=== PATIENT | male | born 1960 | race Asian ===

== ENCOUNTER 2018-06-18 10:51 | Emergency (ER) | payer OTHER, SELFPAY ==
[2018-06-18 11:22] VITALS: BP 147/96; PULSE 71; RESP 18; TEMP 37.1; O2SAT 99
[2018-06-18 11:30] VITALS: PULSE 71; RESP 18; TEMP 37.1; O2SAT 99; BMI 28.8
[2018-06-18] MEDS: ALBUTEROL/IPRATROPIUM 3 ML AMPUL INH (11:44)
--- NOTE | 2018-06-18 11:46 | DI.RAD.S_ITS ---
PROCEDURE: XR CHEST 2V INDICATIONS: shortness of breath TECHNIQUE: 2 views of the chest were acquired. COMPARISON: None. FINDINGS: Surgical changes and devices: None. Lungs and pleura: Lungs are clear. No pleural effusions or pneumothorax. Mediastinum: Mediastinal contours are normal. Heart size is normal. Bones and chest wall: No suspicious bony abnormalities. Soft tissues appear unremarkable. IMPRESSION: No acute disease. Dictated by: Austin Mckeon M.D. on 06/18/2018 at 12:09 Approved by: Austin Mckeon M.D. on 06/18/2018 at 12:10
[2018-06-18 11:47] VITALS: PULSE 80; RESP 20
--- NOTE | 2018-06-18 11:52 | ED.SOB ---
HPI - SOB/Dyspnea General Chief Complaint: Shortness of Breath/Dyspnea Stated Complaint: sob Time Seen by Provider: 06/18/18 11:44 Source: patient Mode of arrival: ambulatory Limitations: no limitations History of Present Illness Patient is a 57-year-old male presents with increasing shortness of breath. states that it has been ongoing for about a week the he intermittently has chest pain. He has no known coronary artery disease but does have nitroglycerin and albuterol at home. Today he presents with wheezing and increasing shortness of breath. He denies any fever he sometimes cough something up. states that is progressively gotten worse with the breathing. He states that the they have tried multiple times is to have a treadmill stress test unfortunately he does not tolerate or is blood pressure is increase is too high so they have stopped it early. He is getting a nuclear stress test at some point but has not yet had it. MD Complaint: shortness of breath and cough Related Data Home Medications Medication Instructions Recorded Confirmed albuterol sulfate [ProAir HFA] 1 puff INHALATION PRN PRN 06/18/18 06/18/18 fluticasone propionate 1 spray INTRANASAL DIRECTED 06/18/18 loratadine 10 mg PO DAILY 06/18/18 06/18/18 omeprazole 20 mg PO DAILY 06/18/18 06/18/18 Previous Rx's Medication Instructions Recorded doxycycline hyclate 100 mg PO BID #14 cap 06/18/18 prednisone 50 mg PO DAILY #5 tab 06/18/18 Allergies Allergy/AdvReac Type Severity Reaction Status Date / Time No Known Drug Allergies Allergy Verified 06/18/18 11:47 Review of Systems Review of Systems GENERAL: Denies chills, fatigue, malaise, fever, sweats, travel HEENT: Denies sinus pain, ear pain, sore throat, difficulty swallowing, neck pain RESPIRATORY: See HPI CARDIOVASCULAR: Denies chest pain, palpitations, orthopnea, edema GASTROINTESTINAL: Denies nausea, vomiting, abdominal pain, diarrhea, constipation, melena. : Denies dysuria, frequency, incontinence, hematuria, urinary retention, flank pain. MUSCULOSKELETAL: Denies weakness, joint pain, or bony pain SKIN: No rash, no erythema, no pruritus NEUROLOGIC: Denies weakness, dizziness, headache, numbness, change in speech, confusion PSYCHIATRIC: No concerning psychosocial issues. 12 point review of systems is negative except for those stated above and HPI [facility] Medical History Asthma (Acute) Social History Smoking Status: Former smoker Social History Smoking Status: Former smoker Exam Initial Vital Signs Initial Vital Signs: Vital Signs Temperature 98.7 F 06/18/18 11:22 Pulse Rate 71 06/18/18 11:22 Respiratory Rate 18 06/18/18 11:22 Blood Pressure 147/96 H 06/18/18 11:22 Pulse Oximetry 99 06/18/18 11:22 GENERAL: Alert awake oriented male currently getting nebulized HEENT: Head atraumatic,EOMI, pupils reactive CARDIOVASCULAR: Regular rate and rhythm without murmurs, rubs or gallops. RESPIRATORY: Wheezing bilaterally unable to speak in full sentences currently getting breathing treatment. Nursing states he was try potting when he 1st came in and having significant respiratory distress overall improved when I evaluate him ABDOMEN: Soft, nontender. Normoactive bowel sounds all 4 quadrants. No guarding or rebound. EXTREMITIES: Normal range of motion, no clubbing or edema. Neurovascularly intact NEUROLOGICAL: Alert and oriented x4.Normal gait and speech. SKIN: Warm, dry, no laceration, no petechiae, no rashes or lesions. Course Orders Ordered: Discontinued Medications Albuterol (Ventolin) 2.5 mg INH NOW ONE Stop: 06/18/18 12:06 Last Admin: 06/18/18 12:08 Dose: 2.5 mg Albuterol/Ipratropium (Duoneb) 3 ml INH NOW ONE Stop: 06/18/18 11:37 Last Admin: 06/18/18 11:44 Dose: 3 ml Methylprednisolone (Solu-Medrol 125 Mg Vial) 125 mg IV NOW ONE Stop: 06/18/18 11:52 Last Admin: 06/18/18 12:19 Dose: 125 mg Vital Signs - 8 hr 06/18/18 11:22 06/18/18 11:30 06/18/18 11:47 Temperature 98.7 F 98.7 F Pulse Rate 71 71 80 Respiratory Rate 18 18 20 Blood Pressure [Right Arm] 147/96 H Pulse Oximetry 99 99 06/18/18 12:10 06/18/18 12:41 Temperature Pulse Rate 67 87 Respiratory Rate 20 17 Blood Pressure [Right Arm] 128/71 Pulse Oximetry 97 MDM - SOB/Dyspnea Lab Data Attestation: I reviewed the patient's lab results. Result diagrams: 06/18/18 12:15 06/18/18 12:15 Lab Results 06/18/18 06/18/18 06/18/18 Range/Units 12:15 12:15 12:15 WBC 12.3 H (4.5-11.0) X10^3/uL RBC 6.53 H (4.5-5.9) X10^6/uL Hgb 13.9 (13.5-17.5) g/dL Hct 44.6 (41-53) % MCV 68.3 L (80-100) fL MCH 21.4 L (26-34) PG MCHC 31.3 (30-36) % RDW 16.1 H (11.6-14.8) % Plt Count 299 (150-400) X10^3/uL Neut % (Auto) 69.2 (50-75) % Lymph % (Auto) 16.5 L (25-40) % [place] % (Auto) 8.7 (3-14) % Eos % (Auto) 5.0 H (2-4) % Baso % (Auto) 0.6 (0-2) % Neut # (Auto) 8500 H (4662-2206) /uL Lymph # (Auto) 2000 (4017-2198) /uL [place] # (Auto) 1100 H (0-900) /uL Eos # (Auto) 600 H (0-450) /uL Baso # (Auto) 100 (0-100) /uL RBC Morphology See below Hypochromasia 1+ H Anisocytosis 2+ H Sodium 141 (137-145) mmol/L Potassium 4.6 (3.4-5.1) mmol/L Chloride 104 (98-107) mmol/L Carbon Dioxide 24 (22-32) mmol/L BUN 13 (9-20) mg/dL Creatinine 0.80 (0.66-1.25) mg/dL Estimated GFR > 60.0 (>60) mL/min BUN/Creatinine Ratio 16.3 (6-22) Glucose 87 (70-100) mg/dL Lactate 1.2 (0.7-2.1) mmol/L Calcium 9.5 (8.4-10.2) mg/dL Total Bilirubin 0.8 (0.2-1.3) mg/dL AST 49 (17-59) IU/L ALT 46 (21-72) IU/L Alkaline Phosphatase 54 (38-126) U/L Total Creatine Kinase (55-170) U/L CK-MB (CK-2) (<2.37) ng/mL CK-MB (CK-2) Rel Index (1.5-5.0) % Troponin I (0.01-0.034) ng/mL B-Natriuretic Peptide (<100) Total Protein 8.0 (6.3-8.2) g/dL Albumin 4.8 (3.5-5.0) g/dL Globulin 3.2 (1.7-4.1) g/dL Albumin/Globulin Ratio 1.5 (1.0-2.8) 06/18/18 06/18/18 Range/Units 12:15 12:15 WBC (4.5-11.0) X10^3/uL RBC (4.5-5.9) X10^6/uL Hgb (13.5-17.5) g/dL Hct (41-53) % MCV (80-100) fL MCH (26-34) PG MCHC (30-36) % RDW (11.6-14.8) % Plt Count (150-400) X10^3/uL Neut % (Auto) (50-75) % Lymph % (Auto) (25-40) % [place] % (Auto) (3-14) % Eos % (Auto) (2-4) % Baso % (Auto) (0-2) % Neut # (Auto) (4824-1361) /uL Lymph # (Auto) (1034-3718) /uL [place] # (Auto) (0-900) /uL Eos # (Auto) (0-450) /uL Baso # (Auto) (0-100) /uL RBC Morphology Hypochromasia Anisocytosis Sodium (137-145) mmol/L Potassium (3.4-5.1) mmol/L Chloride (98-107) mmol/L Carbon Dioxide (22-32) mmol/L BUN (9-20) mg/dL Creatinine (0.66-1.25) mg/dL Estimated GFR (>60) mL/min BUN/Creatinine Ratio (6-22) Glucose (70-100) mg/dL Lactate (0.7-2.1) mmol/L Calcium (8.4-10.2) mg/dL Total Bilirubin (0.2-1.3) mg/dL AST (17-59) IU/L ALT (21-72) IU/L Alkaline Phosphatase (38-126) U/L Total Creatine Kinase 243 H (55-170) U/L CK-MB (CK-2) 2.24 (<2.37) ng/mL CK-MB (CK-2) Rel Index 0.9 L (1.5-5.0) % Troponin I < 0.012 (0.01-0.034) ng/mL B-Natriuretic Peptide < 100 (<100) Total Protein (6.3-8.2) g/dL Albumin (3.5-5.0) g/dL Globulin (1.7-4.1) g/dL Albumin/Globulin Ratio (1.0-2.8) Imaging Data Chest x-ray: Radiologist's impression: PROCEDURE: XR CHEST 2V INDICATIONS: shortness of breath TECHNIQUE: 2 views of the chest were acquired. COMPARISON: None. FINDINGS: Surgical changes and devices: None. Lungs and pleura: Lungs are clear. No pleural effusions or pneumothorax. Mediastinum: Mediastinal contours are normal. Heart size is normal. Bones and chest wall: No suspicious bony abnormalities. Soft tissues appear unremarkable. IMPRESSION: No acute disease. Dictated by: Austin Mckeon M.D. on 06/18/2018 at 12:09 ECG Data Attestation: I personally reviewed and interpreted this ECG as follows: Prior ECG tracings: not available for review Interpretation: Normal sinus rhythm rate [address] elevations artifact noted MDM Narrative Medical decision making narrative: This time patient has no known coronary artery disease. Difficulty breathing. At this time more likely related to his asthma bed cardiac disease overall he is feeling much better and feels ready and able to go. Multiple etiologies for patient's symptoms considered including: Asthma exacerbation, Acute coronary syndrome, pulmonary embolism. At this time based on the history and clinical presentation no further imaging or testing is indicated I discussed all findings with the patient and spouse, Education has been performed regarding treatment plan, diagnosis, warning signs and symptoms and all concerns have been addressed. Verbally agree with and understood all of the above. Discharge Plan Departure Patient Disposition: Home Clinical Impression: Asthma with exacerbation Qualifiers: Asthma severity: unspecified severity Asthma persistence: unspecified Qualified Code(s): J45.901 - Unspecified asthma with (acute) exacerbation Discharge Date/Time: 06/18/18 13:50 Interventions: ED Discharge Assessment Last Done: 06/18/18 13:47 Instructions: DI for Asthma -- Adult Activity Restrictions/Additional Instructions: *You have been diagnosed with asthma exacerbation, viral infection *What to do: He still need a nuclear stress test. This time it your symptoms improved significantly with breathing treatments. This seems to be more prolonged problem today however you're heart still leads evaluated. Today her EKG and heart blood work are normal. *Continue to take medications as directed Prednisone 50 mg once a day for 5 days Doxycycline 100 mg twice a day for 7 days *Follow up with your primary care provider in 2-3 days *Return to ER if you should have increasing shortness of breath, increasing chest pain, or any new, worsening or concerning symptoms Prescriptions: New doxycycline hyclate 100 mg capsule 100 mg PO BID Qty: 14 RF: 0 prednisone 50 mg tablet 50 mg PO DAILY Qty: 5 RF: 0 No Action omeprazole 20 mg capsule,delayed release(DR/EC) 20 mg PO DAILY RF: 0 albuterol sulfate [ProAir HFA] 90 mcg/actuation HFA aerosol inhaler 1 puff Inhalation PRN PRN (Reason: Shortness Of Breath) RF: 0 fluticasone propionate 50 mcg/actuation spray,suspension 1 spray Intranasal DIRECTED RF: 0 loratadine 10 mg tablet 10 mg PO DAILY RF: 0
--- NOTE | 2018-06-18 12:01 | RT ---
Unable to perform pre peak flow, pt tripoiding and speaks in short sentences
--- NOTE | 2018-06-18 12:03 | ED_ITS ---
HPI - SOB/Dyspnea General Chief Complaint: Shortness of Breath/Dyspnea Stated Complaint: sob Time Seen by Provider: 06/18/18 11:44 Source: patient Mode of arrival: ambulatory Limitations: no limitations History of Present Illness Patient is a 57-year-old male presents with increasing shortness of breath. states that it has been ongoing for about a week the he intermittently has chest pain. He has no known coronary artery disease but does have nitroglycerin and albuterol at home. Today he presents with wheezing and increasing shortness of breath. He denies any fever he sometimes cough something up. states that is progressively gotten worse with the breathing. He states that the they have tried multiple times is to have a treadmill stress test unfortunately he does not tolerate or is blood pressure is increase is too high so they have stopped it early. He is getting a nuclear stress test at some point but has not yet had it. MD Complaint: shortness of breath and cough Related Data Home Medications Medication Instructions Recorded Confirmed albuterol sulfate [ProAir HFA] 1 puff INHALATION PRN PRN 06/18/18 06/18/18 fluticasone propionate 1 spray INTRANASAL DIRECTED 06/18/18 loratadine 10 mg PO DAILY 06/18/18 06/18/18 omeprazole 20 mg PO DAILY 06/18/18 06/18/18 Previous Rx's Medication Instructions Recorded doxycycline hyclate 100 mg PO BID #14 cap 06/18/18 prednisone 50 mg PO DAILY #5 tab 06/18/18 Allergies Allergy/AdvReac Type Severity Reaction Status Date / Time No Known Drug Allergies Allergy Verified 06/18/18 11:47 Review of Systems Review of Systems GENERAL: Denies chills, fatigue, malaise, fever, sweats, travel HEENT: Denies sinus pain, ear pain, sore throat, difficulty swallowing, neck pain RESPIRATORY: See HPI CARDIOVASCULAR: Denies chest pain, palpitations, orthopnea, edema GASTROINTESTINAL: Denies nausea, vomiting, abdominal pain, diarrhea, constipation, melena. : Denies dysuria, frequency, incontinence, hematuria, urinary retention, flank pain. MUSCULOSKELETAL: Denies weakness, joint pain, or bony pain SKIN: No rash, no erythema, no pruritus NEUROLOGIC: Denies weakness, dizziness, headache, numbness, change in speech, confusion PSYCHIATRIC: No concerning psychosocial issues. 12 point review of systems is negative except for those stated above and HPI [facility] Medical History Asthma (Acute) Social History Smoking Status: Former smoker Social History Smoking Status: Former smoker Exam Initial Vital Signs Initial Vital Signs: Vital Signs Temperature 98.7 F 06/18/18 11:22 Pulse Rate 71 06/18/18 11:22 Respiratory Rate 18 06/18/18 11:22 Blood Pressure 147/96 H 06/18/18 11:22 Pulse Oximetry 99 06/18/18 11:22 GENERAL: Alert awake oriented male currently getting nebulized HEENT: Head atraumatic,EOMI, pupils reactive CARDIOVASCULAR: Regular rate and rhythm without murmurs, rubs or gallops. RESPIRATORY: Wheezing bilaterally unable to speak in full sentences currently getting breathing treatment. Nursing states he was try potting when he 1st came in and having significant respiratory distress overall improved when I evaluate him ABDOMEN: Soft, nontender. Normoactive bowel sounds all 4 quadrants. No gua rding or rebound. EXTREMITIES: Normal range of motion, no clubbing or edema. Neurovascularly intact NEUROLOGICAL: Alert and oriented x4.Normal gait and speech. SKIN: Warm, dry, no laceration, no petechiae, no rashes or lesions. Course Orders Ordered: Discontinued Medications Albuterol (Ventolin) 2.5 mg INH NOW ONE Stop: 06/18/18 12:06 Last Admin: 06/18/18 12:08 Dose: 2.5 mg Albuterol/Ipratropium (Duoneb) 3 ml INH NOW ONE Stop: 06/18/18 11:37 Last Admin: 06/18/18 11:44 Dose: 3 ml Methylprednisolone (Solu-Medrol 125 Mg Vial) 125 mg IV NOW ONE Stop: 06/18/18 11:52 Last Admin: 06/18/18 12:19 Dose: 125 mg Vital Signs - 8 hr 06/18/18 11:22 06/18/18 11:30 06/18/18 11:47 Temperature 98.7 F 98.7 F Pulse Rate 71 71 80 Respiratory Rate 18 18 20 Blood Pressure [Right Arm] 147/96 H Pulse Oximetry 99 99 06/18/18 12:10 06/18/18 12:41 Temperature Pulse Rate 67 87 Respiratory Rate 20 17 Blood Pressure [Right Arm] 128/71 Pulse Oximetry 97 MDM - SOB/Dyspnea Lab Data Attestation: I reviewed the patient's lab results. Result diagrams: 06/18/18 12:15 06/18/18 12:15 Lab Results 06/18/18 06/18/18 06/18/18 Range/Units 12:15 12:15 12:15 WBC 12.3 H (4.5-11.0) X10^3/uL RBC 6.53 H (4.5-5.9) X10^6/uL Hgb 13.9 (13.5-17.5) g/dL Hct 44.6 (41-53) % MCV 68.3 L (80-100) fL MCH 21.4 L (26-34) PG MCHC 31.3 (30-36) % RDW 16.1 H (11.6-14.8) % Plt Count 299 (150-400) X10^3/uL Neut % (Auto) 69.2 (50-75) % Lymph % (Auto) 16.5 L (25-40) % [place] % (Auto) 8.7 (3-14) % Eos % (Auto) 5.0 H (2-4) % Baso % (Auto) 0.6 (0-2) % Neut # (Auto) 8500 H (4279-3194) /uL Lymph # (Auto) 2000 (0244-9850) /uL [place] # (Auto) 1100 H (0-900) /uL Eos # (Auto) 600 H (0-450) /uL Baso # (Auto) 100 (0-100) /uL RBC Morphology See below Hypochromasia 1+ H Anisocytosis 2+ H Sodium 141 (137-145) mmol/L Potassium 4.6 (3.4-5.1) mmol/L Chloride 104 (98-107) mmol/L Carbon Dioxide 24 (22-32) mmol/L BUN 13 (9-20) mg/dL Creatinine 0.80 (0.66-1.25) mg/dL Estimated GFR > 60.0 (>60) mL/min BUN/Creatinine Ratio 16.3 (6-22) Glucose 87 (70-100) mg/dL Lactate 1.2 (0.7-2.1) mmol/L Calcium 9.5 (8.4-10.2) mg/dL Total Bilirubin 0.8 (0.2-1.3) mg/dL AST 49 (17-59) IU/L ALT 46 (21-72) IU/L Alkaline Phosphatase 54 (38-126) U/L Total Creatine Kinase (55-170) U/L CK-MB (CK-2) (<2.37) ng/mL CK-MB (CK-2) Rel Index (1.5-5.0) % Troponin I (0.01-0.034) ng/mL B-Natriuretic Peptide (<100) Total Protein 8.0 (6.3-8.2) g/dL Albumin 4.8 (3.5-5.0) g/dL Globulin 3.2 (1.7-4.1) g/dL Albumin/Globulin Ratio 1.5 (1.0-2.8) 06/18/18 06/18/18 Range/Units 12:15 12:15 WBC (4.5-11.0) X10^3/uL RBC (4.5-5.9) X10^6/uL Hgb (13.5-17.5) g/dL Hct (41-53) % MCV (80-100) fL MCH (26-34) PG MCHC (30-36) % RDW (11.6-14.8) % Plt Count (150-400) X10^3/uL Neut % (Auto) (50-75) % Lymph % (Auto) (25-40) % [place] % (Auto) (3-14) % Eos % (Auto) (2-4) % Baso % (Auto) (0-2) % Neut # (Auto) (0269-4502) /uL Lymph # (Auto) (7300-0259) /uL [place] # (Auto) (0-900) /uL Eos # (Auto) (0-450) /uL Baso # (Auto) (0-100) /uL RBC Morphology Hypochromasia Anisocytosis Sodium (137-145) mmol/L Potassium (3.4-5.1) mmol/L Chloride (98-107) mmol/L Carbon Dioxide (22-32) mmol/L BUN (9-20) mg/dL Creatinine (0.66-1.25) mg/dL Estimated GFR (>60) mL/min BUN/Creatinine Ratio (6-22) Glucose (70-100) mg/dL Lactate (0.7-2.1) mmol/L Calcium (8.4-10.2) mg/dL Total Bilirubin (0.2-1.3) mg/dL AST (17-59) IU/L ALT (21-72) IU/L Alkaline Phosphatase (38-126) U/L Total Creatine Kinase 243 H (55-170) U/L CK-MB (CK-2) 2.24 (<2.37) ng/mL CK-MB (CK-2) Rel Index 0.9 L (1.5-5.0) % Troponin I < 0.012 (0.01-0.034) ng/mL B-Natriuretic Peptide < 100 (<100) Total Protein (6.3-8.2) g/dL Albumin (3.5-5.0) g/dL Globulin (1.7-4.1) g/dL Albumin/Globulin Ratio (1.0-2.8) Imaging Data Chest x-ray: Radiologist's impression: PROCEDURE: XR CHEST 2V INDICATIONS: shortness of breath TECHNIQUE: 2 views of the chest were acquired. COMPARISON: None. FINDINGS: Surgical changes and devices: None. Lungs and pleura: Lungs are clear. No pleural effusions or pneumothorax. Mediastinum: Mediastinal contours are normal. Heart size is normal. Bones and chest wall: No suspicious bony abnormalities. Soft tissues appear unremarkable. IMPRESSION: No acute disease. Dictated by: Austin Mckeon M.D. on 06/18/2018 at 12:09 ECG Data Attestation: I personally reviewed and interpreted this ECG as follows: Prior ECG tracings: not available for review Interpretation: Normal sinus rhythm rate [address] elevations artifact noted MDM Narrative Medical decision making narrative: This time patient has no known coronary artery disease. Difficulty breathing. At this time more likely related to his asthma bed cardiac disease overall he is feeling much better and feels ready and able to go. Multiple etiologies for patient's symptoms considered including: Asthma exacerbation, Acute coronary syndrome, pulmonary embolism. At this time based on the history and clinical presentation no further imaging or testing is indicated I discussed all findings with the patient and spouse, Education has been performed regarding treatment plan, diagnosis, warning signs and symptoms and all concerns have been addressed. Verbally agree with and understood all of the above. Discharge Plan Departure Patient Disposition: Home Clinical Impression: Asthma with exacerbation Qualifiers: Asthma severity: unspecified severity Asthma persistence: unspecified Qualified Code(s): J45.901 - Unspecified asthma with (acute) exacerbation Discharge Date/Time: 06/18/18 13:50 Interventions: ED Discharge Assessment Last Done: 06/18/18 13:47 Instructions: DI for Asthma -- Adult Activity Restrictions/Additional Instructions: *You have been diagnosed with asthma exacerbation, viral infection *What to do: He still need a nuclear stress test. This time it your symptoms improved significantly with breathing treatments. This seems to be more p rolonged problem today however you're heart still leads evaluated. Today her EKG and heart blood work are normal. *Continue to take medications as directed Prednisone 50 mg once a day for 5 days Doxycycline 100 mg twice a day for 7 days *Follow up with your primary care provider in 2-3 days *Return to ER if you should have increasing shortness of breath, increasing chest pain, or any new, worsening or concerning symptoms Prescriptions: New doxycycline hyclate 100 mg capsule 100 mg PO BID Qty: 14 RF: 0 prednisone 50 mg tablet 50 mg PO DAILY Qty: 5 RF: 0 No Action omeprazole 20 mg capsule,delayed release(DR/EC) 20 mg PO DAILY RF: 0 albuterol sulfate [ProAir HFA] 90 mcg/actuation HFA aerosol inhaler 1 puff Inhalation PRN PRN (Reason: Shortness Of Breath) RF: 0 fluticasone propionate 50 mcg/actuation spray,suspension 1 spray Intranasal DIRECTED RF: 0 loratadine 10 mg tablet 10 mg PO DAILY RF: 0
[2018-06-18] MEDS: ALBUTEROL 2.5 MG/3 ML NEB (ADULT) INH (12:08)
[2018-06-18 12:10] VITALS: PULSE 67; RESP 20
[2018-06-18] MEDS: methylPREDNISolone 125 MG/2 ML VIAL IV (12:19)
[2018-06-18 12:24] LABS: Add Manual Diff / Slide Review NO; Basophils Absolute Auto 100 /uL (0-100); Basophils Percent Auto 0.6 % (0-2); Eosinophils Absolute Auto 600 /uL (0-450); Hematocrit 44.6 % (41-53); Hemoglobin 13.9 g/dL (13.5-17.5); Lymphocytes Absolute Auto 2000 /uL (1100-4500); Lymphocytes Percent Auto 16.5 % (25-40); Mean Corpuscular HGB Conc 31.3 % (30-36); Mean Corpuscular Hemoglobin 21.4 PG (26-34); Mean Corpuscular Volume 68.3 fL (80-100); Monocytes Absolute Auto 1100 /uL (0-900); Monocytes Percent Auto 8.7 % (3-14); Neutrophils Absolute Auto 8500 /uL (1500-7000); Neutrophils Percent Auto 69.2 % (50-75); Platelet Count 299 X10^3/uL (150-400); Red Blood Cell Count 6.53 X10^6/uL (4.5-5.9); Red Cell Distribution Width 16.1 % (11.6-14.8); White Blood Cell Count 12.3 X10^3/uL (4.5-11.0)
[2018-06-18 12:32] LABS: Creatine Kinase 243 U/L (55-170)
[2018-06-18 12:34] LABS: Alanine Aminotransferase 46 IU/L (21-72); Albumin 4.8 g/dL (3.5-5.0); Albumin Globulin Ratio 1.5 (1.0-2.8); Alkaline Phosphatase 54 U/L (38-126); Aspartate Aminotransferase 49 IU/L (17-59); BUN Creatinine Ratio 16.3 (6-22); Bilirubin Total 0.8 mg/dL (0.2-1.3); Blood Urea Nitrogen 13 mg/dL (9-20); Calcium 9.5 mg/dL (8.4-10.2); Carbon Dioxide 24 mmol/L (22-32); Chloride 104 mmol/L (98-107); Estimated Glomerular Filt Rate > 60.0 mL/min (>60); Globulin 3.2 g/dL (1.7-4.1); Glucose 87 mg/dL (70-100); Lactate (Lactic Acid) 1.2 mmol/L (0.7-2.1); Potassium 4.6 mmol/L (3.4-5.1); Sodium 141 mmol/L (137-145)
[2018-06-18 12:35] LABS: HEMOLYSIS 87 (0-50)
[2018-06-18 12:41] VITALS: BP 128/71; PULSE 87; RESP 17; O2SAT 97
[2018-06-18 12:42] LABS: Anisocytosis 2+; Hypochromasia 1+
[2018-06-18 12:44] LABS: B Type Natriuretic Peptide < 100 (<100)
[2018-06-18 12:45] LABS: Troponin I < 0.012 ng/mL (0.01-0.034)
[2018-06-18 12:48] LABS: CKMB % Relative Index 0.9 % (1.5-5.0); Creatine Kinase MB 2.24 ng/mL (<2.37)
[2018-06-18 13:39] VITALS: BP 113/66; PULSE 69; RESP 12; O2SAT 97
== END 2018-06-18 13:50 | disposition home or self-care (01) ==
PROVIDERS: Emergency Provider Emergency Medicine
DX: J45.901 Unspecified asthma with (acute) exacerbation (principal)
CPT/HCPCS: 36591; 71046; 80053; 82550; 82553; 83605; 83880; 84484; 85025; 93005; 94150; 94640; 96374; 99283; 99285; J2930; J7613

== ENCOUNTER 2018-06-28 05:03 | Emergency (ER) | payer OTHER, SELFPAY ==
[2018-06-28] VITALS (8 sets, daily range): BP systolic 128–165; BP diastolic 66–94; PULSE 68–85; RESP 16–18; TEMP 36.8; O2SAT 95–99; BMI 30.4
--- NOTE | 2018-06-28 05:15 | PC.NURSE ---
rt at bedside to assess patient.
[2018-06-28] MEDS: ALBUTEROL/IPRATROPIUM 3 ML AMPUL INH ×3 (05:20→05:30)
--- NOTE | 2018-06-28 06:01 | ED.SOB ---
HPI - SOB/Dyspnea General Chief Complaint: Shortness of Breath/Dyspnea Stated Complaint: difficulty breathing Time Seen by Provider: 06/28/18 05:08 Source: patient Mode of arrival: ambulatory Limitations: no limitations History of Present Illness Patient presents emergency department complaining of shortness of breath, which he attributes to his asthma. He states he has been having a period of increased asthma exacerbation, for which he was recently on a course of prednisone. Patient states that he was improved on the prednisone, but as soon as the prednisone course was finished, he began to have worsening of symptoms again. Patient denies any allergies or upper respiratory infection. He has a longstanding history of asthma with frequent exacerbations, though he has never been intubated. Patient sees a binder selector. And uses Spiriva, along with an albuterol inhaler for rescue. Patient does not have a nebulizer machine at home. Patient states he is concerned because he has to go to [place] in a week, and he does not want to be still dealing with this. Patient denies fevers. No productive cough, though he does have a dry cough when he is having an exacerbation. Patient denies chest pain or abdominal pain. no other complaints at this time. Related Data Home Medications Medication Instructions Recorded Confirmed albuterol sulfate [ProAir HFA] 1 puff INHALATION PRN PRN 06/18/18 06/18/18 fluticasone propionate 1 spray INTRANASAL DIRECTED 06/18/18 loratadine 10 mg PO DAILY 06/18/18 06/18/18 omeprazole 20 mg PO DAILY 06/18/18 06/18/18 Previous Rx's Medication Instructions Recorded doxycycline hyclate 100 mg PO BID #14 cap 06/18/18 prednisone 50 mg PO DAILY #5 tab 06/18/18 albuterol sulfate 2.5 mg INHALATION Q4-6H PRN #90 ml 06/28/18 prednisone 60 mg PO DAILY #15 tab 06/28/18 Allergies Allergy/AdvReac Type Severity Reaction Status Date / Time No Known Drug Allergies Allergy Verified 06/18/18 11:47 Review of Systems Constitutional Denies chills, Denies fever(s), Denies lethargy and Denies weakness Eyes Denies change in vision, Denies eye discharge, Denies irritation and Denies loss of vision ENT Ears, Nose, Mouth, and Throat: Denies change in voice, Denies neck pain and Denies sore throat Cardiovascular Denies chest pain, Denies irregular heart rhythm, Denies lightheadedness, Denies palpitations, Reports dyspnea and Denies orthopnea Respiratory Reports cough (Dry, occasional), Reports dyspnea and Reports wheezing Gastrointestinal Gastrointestinal: Denies abdominal pain, Denies change in bowel habits, Denies diarrhea, Denies nausea and Denies vomiting Genitourinary Denies hematuria, Denies flank pain, Denies urinary incontinence and Denies urinary urgency Musculoskeletal Denies neck pain Integumentary/Breasts Denies pruritus, Denies erythema, Denies rash and Denies wounds Neurologic Denies confusion, Denies loss of vision and Denies weakness Psychiatric Denies anxiety, Denies confusion, Denies depression, Denies homicidal ideation and Denies suicidal ideation Endocrine Denies palpitations Hematologic/Lymphatic Denies easy bruising Allergic/Immunologic Reports wheezing [facility] Medical History Asthma (Acute) Social History Smoking Status: Former smoker Exam Initial Vital Signs Initial Vital Signs: Vital Signs Temperature 98.2 F 06/28/18 05:05 Pulse Rate 81 06/28/18 05:05 Respiratory Rate 16 06/28/18 05:05 Blood Pressure 165/94 H 06/28/18 05:05 Pulse Oximetry 98 06/28/18 05:05 Const General: cooperative and well developed Nutritional Appearance: well nourished Orientation: alert, awake, oriented x3 and not confused [facility] Head: normocephalic and atraumatic Ears: external ears normal and TM's normal bilaterally Nose: external nose normal and No nasal discharge Face and sinus: sinuses nontender, face symmetric, no sinus tenderness and No dry mucous membranes Mouth: oral mucosae normal and moist mucous membranes Teeth and gingiva: dentition normal Throat: tonsils normal and uvula midline Eyes General: appearance normal, both eyes and all related structures Eyelids: eyelids normal Conjunctivae: conjunctivae normal Sclera: sclerae normal Pupils: PERRL EOM: EOM intact bilaterally Neck Neck: normal visual inspection, trachea midline, No lymphadenopathy, No midline deformity and No JVD Lymphatic: No lymphedema Chest Chest: normal inspection of the chest Resp Effort & Inspection: able to speak in complete sentences, labored, no respiratory distress, no use of accessory muscles and prolonged expiratory phase Auscultation: clear to auscultation bilaterally, diminished lung sounds (Diffusely) bilaterally, no rales, no rhonchi and wheezes (Moderate, bilateral, diffuse) Cardio Rate: regular rate Rhythm: regular rhythm Heart Sounds: no click, no gallops, no murmurs and no rubs Pulses: normal peripheral pulses GI Inspection: non-distended Palpation: soft, no hepatosplenomegaly, No guarding, No pulsatile mass and No tender Auscultation: normal bowel sounds Back/Spine/Pelvis Back: No CVA tenderness Cervical Spine: cervical ROM normal and No pain with cervical ROM Thoracic/Lumbar Spine: thoracic and lumbar spine normal to inspection Skin General: no rashes or lesions noted, No jaundice and No petechiae Neuro General: alert, oriented x3, gait normal and no focal motor deficits Speech: speech normal Extrem General: full ROM, no clubbing, cyanosis or edema, no pedal edema and no calf tenderness Psych Appearance: well kempt Mental Status: mental status grossly normal Attitude: cooperative Thought Content: normal and suicidality Judgment: judgment good Course Course Narrative: Patient was given 3 DuoNeb in the emergency department as well as IV Decadron, after which he was found to be improved. He stated that although his overall breathing felt better, his chest felt tight. I gave him a mg of Ativan as he had had quite a load of beta agonists, and patient was found be feeling much better after the Ativan. His breathing was relaxed, and his lungs were much clearer than they had been when he presented. Patient is going to follow up with his binder selector. We have discussed home management of the symptoms, and I have written him a prescription for a nebulizer machine, the accessories, and albuterol nebules to use at home. We have discussed the usual indications for return. Orders Ordered: Discontinued Medications Albuterol/Ipratropium (Duoneb) 3 ml INH NOW ONE Stop: 06/28/18 05:17 Last Admin: 06/28/18 05:20 Dose: 3 ml Albuterol/Ipratropium (Duoneb) 3 ml INH NOW ONE Stop: 06/28/18 05:23 Last Admin: 06/28/18 05:23 Dose: 3 ml Albuterol/Ipratropium (Duoneb) 3 ml INH NOW ONE Stop: 06/28/18 05:30 Last Admin: 06/28/18 05:30 Dose: 3 ml Dexamethasone 20 mg/ Sodium (Chloride) 55 mls @ 220 mls/hr IV NOW ONE Stop: 06/28/18 05:50 Last Infusion: 06/28/18 07:00 Dose: 0 mls/hr Admin: 06/28/18 06:36 Dose: 220 mls/hr Lorazepam (Ativan) 1 mg IV NOW ONE Stop: 06/28/18 06:05 Last Admin: 06/28/18 06:10 Dose: 1 mg Vital Signs - 8 hr 06/28/18 05:05 06/28/18 05:20 06/28/18 05:24 Temperature 98.2 F Pulse Rate 81 Respiratory Rate 16 Blood Pressure 165/94 H Blood Pressure [Left Arm] Pulse Oximetry 98 99 99 06/28/18 05:31 06/28/18 06:05 06/28/18 06:30 Temperature Pulse Rate 85 68 Respiratory Rate 18 16 Blood Pressure Blood Pressure [Left Arm] 144/78 H 141/66 H Pulse Oximetry 99 97 95 MDM - SOB/Dyspnea Medical Records Attestation: I reviewed the patient's medical records. Discharge Plan Departure Patient Disposition: Home Clinical Impression: Asthma with exacerbation Qualifiers: Asthma severity: mild Asthma persistence: intermittent Qualified Code(s): J45.21 - Mild intermittent asthma with (acute) exacerbation Discharge Date/Time: 06/28/18 07:21 Interventions: ED Discharge Assessment Last Done: 06/28/18 07:19 Instructions: DI for Asthma -- Adult Activity Restrictions/Additional Instructions: Please use the prednisone and use the nebulizer treatments, as needed and as directed. Please follow up with your binder selector as soon as possible to address the problems or having. Prescriptions: New prednisone 20 mg tablet 60 mg PO DAILY Qty: 15 RF: 0 albuterol sulfate 2.5 mg /3 mL (0.083 %) solution for nebulization 2.5 mg INHALATION Q4-6H PRN (Reason: shortness of breath or wheezing) Qty: 90 RF: 0 No Action omeprazole 20 mg capsule,delayed release(DR/EC) 20 mg PO DAILY RF: 0 albuterol sulfate [ProAir HFA] 90 mcg/actuation HFA aerosol inhaler 1 puff Inhalation PRN PRN (Reason: Shortness Of Breath) RF: 0 fluticasone propionate 50 mcg/actuation spray,suspension 1 spray Intranasal DIRECTED RF: 0 loratadine 10 mg tablet 10 mg PO DAILY RF: 0 doxycycline hyclate 100 mg capsule 100 mg PO BID Qty: 14 RF: 0 prednisone 50 mg tablet 50 mg PO DAILY Qty: 5 RF: 0 Referrals: [facility] [Provider Group]
[2018-06-28] MEDS: LORazepam 2 MG/ML SYRINGE 1 MG IV (06:10)
[2018-06-28] MEDS: DEXAMETHASONE 20 MG in SODIUM CHLORIDE 0.9% 50 ML 220 ML IV (06:36)
--- NOTE | 2018-06-28 07:00 | ED_ITS ---
HPI - SOB/Dyspnea General Chief Complaint: Shortness of Breath/Dyspnea Stated Complaint: difficulty breathing Time Seen by Provider: 06/28/18 05:08 Source: patient Mode of arrival: ambulatory Limitations: no limitations History of Present Illness Patient presents emergency department complaining of shortness of breath, which he attributes to his asthma. He states he has been having a period of increased asthma exacerbation, for which he was recently on a course of prednisone. Patient states that he was improved on the prednisone, but as soon as the prednisone course was finished, he began to have worsening of symptoms again. Patient denies any allergies or upper respiratory infection. He has a longstanding history of asthma with frequent exacerbations, though he has never been intubated. Patient sees a market relationship manager. And uses Spiriva, along with an albuterol inhaler for rescue. Patient does not have a nebulizer machine at home. Patient states he is concerned because he has to go to [place] in a week, and he does not want to be still dealing with this. Patient denies fevers. No productive cough, though he does have a dry cough when he is having an exacerbation. Patient denies chest pain or abdominal pain. no other complaints at this time. Related Data Home Medications Medication Instructions Recorded Confirmed albuterol sulfate [ProAir HFA] 1 puff INHALATION PRN PRN 06/18/18 06/18/18 fluticasone propionate 1 spray INTRANASAL DIRECTED 06/18/18 loratadine 10 mg PO DAILY 06/18/18 06/18/18 omeprazole 20 mg PO DAILY 06/18/18 06/18/18 Previous Rx's Medication Instructions Recorded doxycycline hyclate 100 mg PO BID #14 cap 06/18/18 prednisone 50 mg PO DAILY #5 tab 06/18/18 albuterol sulfate 2.5 mg INHALATION Q4-6H PRN #90 ml 06/28/18 prednisone 60 mg PO DAILY #15 tab 06/28/18 Allergies Allergy/AdvReac Type Severity Reaction Status Date / Time No Known Drug Allergies Allergy Verified 06/18/18 11:47 Review of Systems Constitutional Denies chills, Denies fever(s), Denies lethargy and Denies weakness Eyes Denies change in vision, Denies eye discharge, Denies irritation and Denies loss of vision ENT Ears, Nose, Mouth, and Throat: Denies change in voice, Denies neck pain and Denies sore throat Cardiovascular Denies chest pain, Denies irregular heart rhythm, Denies lightheadedness, Denies palpitations, Reports dyspnea and Denies orthopnea Respiratory Reports cough (Dry, occasional), Reports dyspnea and Reports wheezing Gastrointestinal Gastrointestinal: Denies abdominal pain, Denies change in bowel habits, Denies diarrhea, Denies nausea and Denies vomiting Genitourinary Denies hematuria, Denies flank pain, Denies urinary incontinence and Denies urinary urgency Musculoskeletal Denies neck pain Integumentary/Breasts Denies pruritus, Denies erythema, Denies rash and Denies wounds Neurologic Denies confusion, Denies loss of vision and Denies weakness Psychiatric Denies anxiety, Denies confusion, Denies depression, Denies homicidal ideation and Denies suicidal ideation Endocrine Denies palpitations Hematologic/Lymphatic Denies easy bruising Allergic/Immunologic Reports wheezing [facility] Medical History Asthma (Acute) Social History Smoking Status: Former smoker Exam Initial Vital Signs Initial Vital Signs: Vital Signs Temperature 98.2 F 06/28/18 05:05 Pulse Rate 81 06/28/18 05:05 Respiratory Rate 16 06/28/18 05:05 Blood Pressure 165/94 H 06/28/18 05:05 Pulse Oximetry 98 06/28/18 05:05 Const General: cooperative and well developed Nutritional Appearance: well nourished Orientation: alert, awake, oriented x3 and not confused [facility] Head: normocephalic and atraumatic Ears: external ears normal and TM's normal bilaterally Nose: external nose normal and No nasal discharge Face and sinus: sinuses nontender, face symmetric, no sinus tenderness and No dry mucous membranes Mouth: oral mucosae normal and moist mucous membranes Teeth and gingiva: dentition normal Throat: tonsils normal and uvula midline Eyes General: appearance normal, both eyes and all related structures Eyelids: eyelids normal Conjunctivae: conjunctivae normal Sclera: sclerae normal Pupils: PERRL EOM: EOM intact bilaterally Neck Neck: normal visual inspection, trachea midline, No lymphadenopathy, No midline deformity and No JVD Lymphatic: No lymphedema Chest Chest: normal inspection of the chest Resp Effort & Inspection: able to speak in complete sentences, labored, no respiratory distress, no use of accessory muscles and prolonged expiratory phase Auscultation: clear to auscultation bilaterally, diminished lung sounds (Diffusely) bilaterally, no rales, no rhonchi and wheezes (Moderate, bilateral, diffuse) Cardio Rate: regular rate Rhythm: regular rhythm Heart Sounds: no click, no gallops, no murmurs and no rubs Pulses: normal peripheral pulses GI Inspection: non-distended Palpation: soft, no hepatosplenomegaly, No guarding, No pulsatile mass and No tender Auscultation: normal bowel sounds Back/Spine/Pelvis Back: No CVA tenderness Cervical Spine: cervical ROM normal and No pain with cervical ROM Thoracic/Lumbar Spine: thoracic and lumbar spine normal to inspection Skin General: no rashes or lesions noted, No jaundice and No petechiae Neuro General: alert, oriented x3, gait normal and no focal motor deficits Speech: speech normal Extrem General: full ROM, no clubbing, cyanosis or edema, no pedal edema and no calf tenderness Psych Appearance: well kempt Mental Status: mental status grossly normal Attitude: cooperative Thought Content: normal and suicidality Judgment: judgment good Course Course Narrative: Patient was given 3 DuoNeb in the emergency department as well as IV Decadron, after which he was found to be improved. He stated that although his overall breathing felt better, his chest felt tight. I gave him a mg of Ativan as he had had quite a load of beta agonists, and patient was found be feeling much better after the Ativan. His breathing was relaxed, and his tyler ngs were much clearer than they had been when he presented. Patient is going to follow up with his market relationship manager. We have discussed home management of the symptoms, and I have written him a prescription for a nebulizer machine, the accessories, and albuterol nebules to use at home. We have discussed the usual indications for return. Orders Ordered: Discontinued Medications Albuterol/Ipratropium (Duoneb) 3 ml INH NOW ONE Stop: 06/28/18 05:17 Last Admin: 06/28/18 05:20 Dose: 3 ml Albuterol/Ipratropium (Duoneb) 3 ml INH NOW ONE Stop: 06/28/18 05:23 Last Admin: 06/28/18 05:23 Dose: 3 ml Albuterol/Ipratropium (Duoneb) 3 ml INH NOW ONE Stop: 06/28/18 05:30 Last Admin: 06/28/18 05:30 Dose: 3 ml Dexamethasone 20 mg/ Sodium (Chloride) 55 mls @ 220 mls/hr IV NOW ONE Stop: 06/28/18 05:50 Last Infusion: 06/28/18 07:00 Dose: 0 mls/hr Admin: 06/28/18 06:36 Dose: 220 mls/hr Lorazepam (Ativan) 1 mg IV NOW ONE Stop: 06/28/18 06:05 Last Admin: 06/28/18 06:10 Dose: 1 mg Vital Signs - 8 hr 06/28/18 05:05 06/28/18 05:20 06/28/18 05:24 Temperature 98.2 F Pulse Rate 81 Respiratory Rate 16 Blood Pressure 165/94 H Blood Pressure [Left Arm] Pulse Oximetry 98 99 99 06/28/18 05:31 06/28/18 06:05 06/28/18 06:30 Temperature Pulse Rate 85 68 Respiratory Rate 18 16 Blood Pressure Blood Pressure [Left Arm] 144/78 H 141/66 H Pulse Oximetry 99 97 95 MDM - SOB/Dyspnea Medical Records Attestation: I reviewed the patient's medical records. Discharge Plan Departure Patient Disposition: Home Clinical Impression: Asthma with exacerbation Qualifiers: Asthma severity: mild Asthma persistence: intermittent Qualified Code(s): J45.21 - Mild intermittent asthma with (acute) exacerbation Discharge Date/Time: 06/28/18 07:21 Interventions: ED Discharge Assessment Last Done: 06/28/18 07:19 Instructions: DI for Asthma -- Adult Activity Restrictions/Additional Instructions: Please use the prednisone and use the nebulizer treatments, as needed and as directed. Please follow up with your market relationship manager as soon as possible to address the problems or having. Prescriptions: New prednisone 20 mg tablet 60 mg PO DAILY Qty: 15 RF: 0 albuterol sulfate 2.5 mg /3 mL (0.083 %) solution for nebulization 2.5 mg INHALATION Q4-6H PRN (Reason: shortness of breath or wheezing) Qty: 90 RF: 0 No Action omeprazole 20 mg capsule,delayed release(DR/EC) 20 mg PO DAILY RF: 0 albuterol sulfate [ProAir HFA] 90 mcg/actuation HFA aerosol inhaler 1 puff Inhalation PRN PRN (Reason: Shortness Of Breath) RF: 0 fluticasone propionate 50 mcg/actuation spray,suspension 1 spray Intranasal DIRECTED RF: 0 loratadine 10 mg tablet 10 mg PO DAILY RF: 0 doxycycline hyclate 100 mg capsule 100 mg PO BID Qty: 14 RF: 0 prednisone 50 mg tablet 50 mg PO DAILY Qty: 5 RF: 0 Referrals: [facility] [Provider Group]
== END 2018-06-28 07:21 | disposition home or self-care (01) ==
PROVIDERS: Emergency Provider Emergency Medicine
DX: J45.21 Mild intermittent asthma with (acute) exacerbation (principal)
CPT/HCPCS: 36591; 94640; 96365; 96375; 99283; 99284; J1100; J2060

== ENCOUNTER → 2018-08-13 10:15 | Outpatient (CLI) | payer OTHER, SELFPAY ==
--- NOTE | 2018-08-13 | DI.RAD.S_ITS ---
PROCEDURE: FL BARIUM SWALLOW W SPEECH INDICATIONS: Gastro-esophageal reflux disease TECHNIQUE: Examination was conducted in conjunction with speech pathology per standard protocol. In the lateral projection, filming was performed of the patient swallowing. AP projection filming may also be performed with patient swallowing. COMPARISON: None. FINDINGS: Function: The oral preparatory phase appears normal, with proper containment. The subsequent oral propulsive phase, pharyngeal phase, and esophageal phase of swallowing also appear normal with all proffered substances. No laryngotracheal penetration or aspiration. No pathologic vallecular pooling. Morphology: No cricopharyngeal bar is identified. No cervical esophageal webs. No Zenker's diverticulum. No strictures. IMPRESSION: Normal swallow study. Please refer to speech pathology notes for additional details. Dictated by: Cameron Angel M.D. on 08/13/2018 at 12:13 Approved by: Cameron Angel M.D. on 08/13/2018 at 12:14
--- NOTE | 2018-08-13 13:36 | ST.SWALLOW ---
Care Team Visit Care Team Role Provider Type Zeinab Prasad Primary Care Provider Non-Staff Specialty: Medical Address: [address] [place] [address], [id number] Email: Robert Rueda MD Attending Provider Physician Specialty: Ear, Nose, Throat Address: [address] [place] [address], [id number] Email: Modified Barium Swallow Study [employer] Modified Barium Swallow Study Start: 08/13/18 11:26 Freq: Status: Active Protocol: Document 08/13/18 11:27 TLC (Rec: 08/13/18 11:30 TLC [id number]) Modified Barium Swallow Study Total Time Visit Start Time 10:30 Visit Stop Time 10:50 Total Visit Minutes [address] Robert Rueda, ENT Reason for Referral Dysphagia Setting Setting Outpatient Care Patient Information Patient History Mr. Cox complains of difficulty swallowing and choking on small particles such as peanuts and rice which began approximately 2-3 years ago. He also reports the urge to snort frequently while eating and in conversation. He often feels something is stuck on the back of his palate and occasionally experiences nasal regurgitation of food particles. He is currently on medication for reflux and allergies. He denies any past neurological history. Chest x- ray from 06/18/18 was clear. Patient Positioning Position View Lateral Imaging Lateral View Textures Administered Trials Presented Thin Liquid via Spoon Thin Liquid via Cup [place] Liquid via Spoon [place] Liquid via Cup Honey Liquid via Spoon Pudding Thick Liquid via Spoon Regular Textures Oral Phase Source: MBSIMP (TM) (C) Bolus Specific Scoring Grid Lip Closure No Impairment (WNL) Tongue Control During Bolus Hold Moderate Impairment Bolus Prep/Mastication No Impairment (WNL) Bolus Transport/Lingual Motion No Impairment (WNL) Oral Residue No Impairment (WNL) Nasal Regurgitation No: Not observed during study Additional Oral Phase Observations Anterior loss of bolus with delayed initiation of pharyngeal swallow. Initiation of swallow occurred at the posterior laryngeal surface of epiglottis with thin liquids and nectar thick liquids and in pyriform sinus with puree texture. Pharyngeal Phase Source: MBSIMP (TM) (C) Bolus Specific Scoring Grid Delayed Initiation of Pharyngeal Swallow Yes Soft Palate Elevation No Impairment (WNL) Laryngeal Elevation No Impairment (WNL) Anterior Hyoid Movement Minimal Impairment Epiglottic Range of Motion No Impairment (WNL) Vallecular Residue Yes Laryngeal Vestibular Closure No Impairment (WNL) Pharyngeal Stripping Wave No Impairment (WNL) Pharyngeal Contraction No Impairment (WNL) Clearance of Posterior Pharyngeal Wall No Impairment (WNL) Residue Upper Esophageal Sphincter Opening No Impairment (WNL) Residue in the Pyriform Sinuses No Esophageal Clearance Upright Position No Impairment (WNL) Additional Pharyngeal Phase Observations No bolus observed between soft palate and pharyngeal wall, partial anterior movement of the hyoid, complete epiglottic inversion. No penetration or aspiration observed. A/P View Esophageal Observations Esophageal Function No esophageal impairments observed in lateral view. Clinical Impressions Findings Mr. Cox presents with a functional swallow at this time without concern for aspiration and no identifiable cause for his symptoms. Recommend: follow-up with ENT regarding results and to determine next step to identify cause of symptoms. Radiologist suggests patient may benefit from sinus scan given patient's reported complaints. Patient Appropriate for Therapy No Recommendations Diet Liquids Order Thin Diet Order Regular Medication Recommendation As Tolerated Treatment Plan Recommended Referrals Other Additional Recommended Referrals ENT f/u
== END ==
PROVIDERS: PCP Nurse Practitioner Family; Visit Provider Otolaryngology
DX: K21.9 Gastro-esophageal reflux disease without esophagitis (principal); R13.19 Other dysphagia
CPT/HCPCS: 74230; 92611

== ENCOUNTER 2018-10-02 09:36 | Emergency (ER) | payer OTHER, SELFPAY ==
[2018-10-02] MEDS: ALBUTEROL/IPRATROPIUM 3 ML AMPUL INH (09:50)
[2018-10-02 09:53] VITALS: BP 160/90; PULSE 77; RESP 18; TEMP 36.8; O2SAT 99; BMI 29.7
--- NOTE | 2018-10-02 10:11 | ED_ITS ---
HPI - SOB/Dyspnea General Chief Complaint: Shortness of Breath/Dyspnea Stated Complaint: Serious weezing, trouble breathing Time Seen by Provider: 10/02/18 09:46 Source: patient Mode of arrival: ambulatory Limitations: no limitations History of Present Illness Patient is a 58-year-old male who presents with shortness of breath. He has a history of asthma. He has been painting the inside of his house for the last week he also sprayed some Fabreeze 2 days ago he thinks that triggered it and it has just gone downhill. He has been using his nebulizer machine every 6 hours which does seem to be helping but he still feels like his chest is quite tight and he short of breath. No fever. Related Data Home Medications Medication Instructions Recorded Confirmed albuterol sulfate [ProAir HFA] 1 puff INHALATION PRN PRN 06/18/18 06/18/18 fluticasone propionate 1 spray INTRANASAL DIRECTED 06/18/18 loratadine 10 mg PO DAILY 06/18/18 06/18/18 omeprazole 20 mg PO DAILY 06/18/18 06/18/18 Previous Rx's Medication Instructions Recorded doxycycline hyclate 100 mg PO BID #14 cap 06/18/18 prednisone 50 mg PO DAILY #5 tab 06/18/18 albuterol sulfate 2.5 mg INHALATION Q4-6H PRN #90 ml 06/28/18 prednisone 60 mg PO DAILY #15 tab 06/28/18 albuterol sulfate 0.63 mg INHALATION Q4-6H PRN #75 ml 10/02/18 prednisone 40 mg PO DAILY #10 tab 10/02/18 Allergies Allergy/AdvReac Type Severity Reaction Status Date / Time No Known Drug Allergies Allergy Verified 06/18/18 11:47 Review of Systems Review of Systems GENERAL: Denies chills, fatigue, malaise, fever, sweats, travel HEENT: Denies sinus pain, ear pain, sore throat, difficulty swallowing, neck pain RESPIRATORY: See HPI CARDIOVASCULAR: Denies chest pain, palpitations, orthopnea, edema GASTROINTESTINAL: Denies nausea, vomiting, abdominal pain, diarrhea, constipa tion, melena. : Denies dysuria, frequency, incontinence, hematuria, urinary retention, flank pain. MUSCULOSKELETAL: Denies weakness, joint pain, or bony pain SKIN: No rash, no erythema, no pruritus NEUROLOGIC: Denies weakness, dizziness, headache, numbness, change in speech, confusion PSYCHIATRIC: No concerning psychosocial issues. 12 point review of systems is negative except for those stated above and HPI [facility] Medical History Asthma (Acute) Social History Smoking Status: Former smoker Social History Smoking Status: Former smoker Exam Initial Vital Signs Initial Vital Signs: Vital Signs Temperature 98.3 F 10/02/18 09:53 Pulse Rate 77 10/02/18 09:53 Respiratory Rate 18 10/02/18 09:53 Blood Pressure 160/90 H 10/02/18 09:53 Pulse Oximetry 99 10/02/18 09:53 GENERAL: Well-appearing, well-nourished and in no acute distress. HEENT: Head atraumatic,EOMI, pupils reactive, CARDIOVASCULAR: Regular rate and rhythm without murmurs, rubs or gallops. RESPIRATORY: Wheezing bilaterally no conversational dyspnea ABDOMEN: Soft, nontender. Normoactive bowel sounds all 4 quadrants. No guarding or rebound. EXTREMITIES: Normal range of motion, no clubbing or edema. Neurovascularly intact NEUROLOGICAL: Alert and oriented x4.Normal gait and speech. Cranial nerves II through XII grossly intact. SKIN: Warm, dry, no laceration, no petechiae, no rashes or lesions. Course Orders Ordered: Discontinued Medications Albuterol (Ventolin) 2.5 mg INH NOW ONE Stop: 10/02/18 10:49 Last Admin: 10/02/18 10:51 Dose: 2.5 mg Albuterol/Ipratropium (Duoneb) 3 ml INH NOW ONE Stop: 10/02/18 09:46 Last Admin: 10/02/18 09:50 Dose: 3 ml Vital Signs - 8 hr 10/02/18 09:53 10/02/18 10:49 10/02/18 11:12 Temperature 98.3 F Pulse Rate 77 78 100 H Respiratory Rate 18 20 Blood Pressure 160/90 H 142/96 H Pulse Oximetry 99 99 95 MDM - SOB/Dyspnea MDM Narrative Medical decision making narrative: Patient improved significantly after multiple bronchodilators. He seems to have in environmental stimulus such as painting. I recommend that he find someone else to pain for him. We also talked about keeping the windows open and getting a fan. This time patient is feeling better. Discharge Plan Departure Patient Disposition: Home Clinical Impression: Asthma with exacerbation Qualifiers: Asthma severity: moderate Asthma persistence: unspecified Qualified Code(s): J45.901 - Unspecified asthma with (acute) exacerbation Discharge Date/Time: 10/02/18 11:14 Interventions: ED Discharge Assessment Last Done: 10/02/18 11:12 Instructions: Asthma -- Adult Activity Restrictions/Additional Instructions: *You have been diagnosed with asthma exacerbation *What to do: Do not pain to and if you do pain to keep the windows open and fans *Continue to take medications as directed Albuterol every 4 hours only if needed for wheezing or shortness of breath Prednisone 40 mg once a day for 5 days *Follow up with your primary care provider in 2-3 days *Return to ER if you should have increasing difficulty breathing chest tightness or any new, worsening or concerning symptoms Prescriptions: New albuterol sulfate 0.63 mg/3 mL solution for nebulization 0.63 mg INHALATION Q4-6H PRN (Reason: shortness of breath or wheezing) Qty: 75 RF: 0 prednisone 20 mg tablet 40 mg PO DAILY Qty: 10 RF: 0 No Action omeprazole 20 mg capsule,delayed release(DR/EC) 20 mg PO DAILY RF: 0 albuterol sulfate [ProAir HFA] 90 mcg/actuation HFA aerosol inhaler 1 puff Inhalation PRN PRN (Reason: Shortness Of Breath) RF: 0 fluticasone propionate 50 mcg/actuation spray,suspension 1 spray Intranasal DIRECTED RF: 0 loratadine 10 mg tablet 10 mg PO DAILY RF: 0 doxycycline hyclate 100 mg capsule 100 mg PO BID Qty: 14 RF: 0 prednisone 50 mg tablet 50 mg PO DAILY Qty: 5 RF: 0 prednisone 20 mg tablet 60 mg PO DAILY Qty: 15 RF: 0 albuterol sulfate 2.5 mg /3 mL (0.083 %) solution for nebulization 2.5 mg INHALATION Q4-6H PRN (Reason: shortness of breath or wheezing) Qty: 90 RF: 0 Referrals: Zeinab Prasad [Primary Care Provider] -
[2018-10-02 10:49] VITALS: PULSE 78; O2SAT 99
[2018-10-02] MEDS: ALBUTEROL 2.5 MG/3 ML NEB (ADULT) INH (10:51)
[2018-10-02 11:12] VITALS: BP 142/96; PULSE 100; RESP 20; O2SAT 95
== END 2018-10-02 11:14 | disposition home or self-care (01) ==
PROVIDERS: Emergency Provider Emergency Medicine; PCP Nurse Practitioner Family
DX: J45.901 Unspecified asthma with (acute) exacerbation (principal)
CPT/HCPCS: 94150; 94640; 99282; 99283; J7613

== ENCOUNTER 2020-07-22 19:16 | Emergency (ER) | payer OTHER, SELFPAY ==
[2020-07-22] VITALS (17 sets, daily range): BP systolic 133–192; BP diastolic 69–99; PULSE 78–108; RESP 10–28; TEMP 36.4; O2SAT 95–99; BMI 27.3
--- NOTE | 2020-07-22 19:21 | DI.RAD.S_ITS ---
PROCEDURE: XR CHEST 2V INDICATIONS: cough, COPD TECHNIQUE: 2 views of the chest were acquired. COMPARISON: [facility], CR, XR CHEST 2V, 06/18/2018, 11:54. FINDINGS: Surgical changes and devices: None. Lungs and pleura: No definite right pleural effusions or pneumothorax. Blunting of the left costophrenic angle Mediastinum: Mediastinal contours are normal. Heart size is normal. Bones and chest wall: No suspicious bony abnormalities. Soft tissues appear unremarkable. IMPRESSION: Nonspecific blunting of the left costophrenic angle , cannot exclude trace left pleural fluid. Elsewhere, no acute disease. Dictated by: Austin Mckeon M.D. on 07/22/2020 at 20:19 Approved by: Austin Mckeon M.D. on 07/22/2020 at 20:21
[2020-07-22 19:44] LABS: COVID19 -Nasal RAPID Negative (Negative)
--- NOTE | 2020-07-22 19:45 | PC.NURSE ---
Patient ambulated to xray, increase SOB with walking back to department.
[2020-07-22] MEDS: methylPREDNISolone 125 MG/2 ML VIAL IV (19:52)
[2020-07-22] MEDS: SODIUM CHLORIDE 0.9% 1,000 ML 125 ML IV (19:53)
[2020-07-22 19:54] LABS: Add Manual Diff / Slide Review NO; Basophils Absolute Auto 200 /uL (0-100); Basophils Percent Auto 1.8 % (0-2); Eosinophils Absolute Auto 1000 /uL (0-450); Eosinophils Percent Auto 10.3 % (2-4); Hematocrit 41.7 % (41-53); Hemoglobin 13.6 g/dL (13.5-17.5); Lymphocytes Absolute Auto 2100 /uL (1100-4500); Lymphocytes Percent Auto 21.6 % (25-40); Mean Corpuscular HGB Conc 32.5 % (30-36); Mean Corpuscular Volume 67.7 fL (80-100); Monocytes Absolute Auto 700 /uL (0-900); Monocytes Percent Auto 6.9 % (3-14); Neutrophils Absolute Auto 5800 /uL (1500-7000); Neutrophils Percent Auto 59.4 % (50-75); Platelet Count 304 X10^3/uL (150-400); Red Blood Cell Count 6.15 X10^6/uL (4.5-5.9); Red Cell Distribution Width 16.7 % (11.6-14.8); White Blood Cell Count 9.7 X10^3/uL (4.5-11.0)
[2020-07-22] MEDS: ALBUTEROL/IPRATROPIUM 3 ML AMPUL INH ×2 (19:56→20:13)
[2020-07-22 20:06] LABS: Alanine Aminotransferase 34 IU/L (<50); Albumin 4.5 g/dL (3.5-5.0); Albumin Globulin Ratio 1.4 (1.0-2.8); Alkaline Phosphatase 69 U/L (38-126); Aspartate Aminotransferase 39 IU/L (17-59); BUN Creatinine Ratio 16.5 (6-22); Bilirubin Total 0.3 mg/dL (0.2-1.3); Blood Urea Nitrogen 13 mg/dL (9-20); Calcium 9.5 mg/dL (8.4-10.2); Carbon Dioxide 24 mmol/L (22-32); Chloride 106 mmol/L (98-107); Creatine Kinase 225 U/L (55-170); Estimated Glomerular Filt Rate > 60.0 mL/min (>60); Globulin 3.3 g/dL (1.7-4.1); Glucose 127 mg/dL (80-110); HEMOLYSIS 16 (0-50); Potassium 3.5 mmol/L (3.4-5.1); Sodium 141 mmol/L (137-145); Total Protein 7.8 g/dL (6.3-8.2)
[2020-07-22 20:08] LABS: D Dimer 430 ng/mL (<230)
--- NOTE | 2020-07-22 20:10 | ED_ITS ---
HPI - SOB/Dyspnea General Chief Complaint: Shortness of Breath/Dyspnea Stated Complaint: thinks COPD attack Time Seen by Provider: 07/22/20 19:17 Source: patient Mode of arrival: Ambulatory Limitations: no limitations History of Present Illness HPI Narrative: 59-year-old male former smoker with history of COPD presents with his in the chief complaint of gradually increasing shortness of breath over the past few days. He has had no fever but does admit to the increasing production of sputum. He is not dizzy nor weak or lightheaded. He denies any bloody sputum, history of blood clots or cancer. He denies any chest pain and is not having nausea, vomiting or diarrhea. He has run out of nebulizers at home. His shortness of breath becomes worse with coughing or exertion. He denies any orthopnea, we gain or lower extremity swelling. He has had no recent travel or exposure to ill persons MD Complaint: shortness of breath and cough Onset (ago): day(s) Severity: moderate Consistency/Duration: constant Relieving factors: rest Exacerbating factors: exertion and coughing Known history of: COPD Associated symptoms: cough and sputum production Treatment prior to arrival: bronchodilator Related Data Home oxygen amount: none Home Medications Medication Instructions Recorded Confirmed albuterol sulfate [ProAir HFA] 1 puff INHALATION PRN PRN 06/18/18 06/18/18 fluticasone propionate 1 spray INTRANASAL DIRECTED 06/18/18 loratadine 10 mg PO DAILY 06/18/18 06/18/18 omeprazole 20 mg PO DAILY 06/18/18 06/18/18 Previous Rx's Medication Instructions Recorded doxycycline hyclate 100 mg PO BID #14 cap 06/18/18 prednisone 50 mg PO DAILY #5 tab 06/18/18 albuterol sulfate 2.5 mg INHALATION Q4-6H PRN #90 ml 06/28/18 prednisone 60 mg PO DAILY #15 tab 06/28/18 albuterol sulfate 0.63 mg INHALATION Q4-6H PRN #75 ml 10/02/18 prednisone 40 mg PO DAILY #10 tab 10/02/18 albuterol sulfate 2.5 mg INHALATION Q4-6H PRN #90 ml 07/22/20 doxycycline hyclate 100 mg PO BID #20 tab 07/22/20 prednisone See Rx Instructions .ROUTE 07/22/20 .COMPLEX #30 tab Allergies Allergy/AdvReac Type Severity Reaction Status Date / Time No Known Drug Allergies Allergy Verified 06/18/18 11:47 Review of Systems Constitutional Constitutional: Denies chills, Denies fatigue, Denies fever(s), Denies frequent falls, Denies lethargy and Denies weakness Eyes Eyes: Denies change in vision, Denies eye discharge, Denies irritation and Denies loss of vision ENT Ears, Nose, Mouth, and Throat: Denies change in voice, Denies dizziness, Denies neck pain, Denies sore throat and Denies throat swelling Cardiovascular Cardiovascular: Denies chest pain, Denies irregular heart rhythm, Denies lightheadedness, Denies palpitations, Reports dyspnea, Denies dyspnea on exertion and Denies orthopnea Respiratory Respiratory: Reports change in phlegm color, Reports cough, Reports dyspnea, Denies dyspnea on exertion and Denies wheezing Gastrointestinal Gastrointestinal: Denies abdominal pain, Denies change in bowel habits, Denies diarrhea, Denies nausea and Denies vomiting Musculoskeletal Musculoskeletal: Denies neck pain and Denies numbness Integumentary/Breasts Skin/Breast: Denies pruritus, Denies erythema, Denies rash and Denies wounds Neurologic Neurologic: Denies behavioral changes, Denies confusion, Denies dizziness, Denies frequent falls, Denies loss of vision, Denies numbness and Denies weakness Psychiatric Psychiatric: Denies anxiety, Denies behavioral changes, Denies confusion, Denies depression, Denies homicidal ideation and Denies suicidal ideation Endocrine Endocrine: Denies fatigue, Denies flushing and Denies palpitations Hematologic/Lymphatic Hematologic/Lymphatic: Denies easy bruising Allergic/Immunologic Allergic/Immunologic: Denies urticaria, Denies throat swelling and Denies wheezing Patient History Medical History Asthma Social History Smoking Status: Former smoker Smoking Status: Former smoker alcohol intake frequency: a few times a month Substance Use Type: does not use Exam Narrative Exam Narrative: GENERAL: [59] year old patient appears stated age. Well- nourished, well-developed patient, in mild distress. HEAD: Atraumatic. Normocephalic. EYES: Pupils equal round and reactive. Extraocular motions intact. No scleral icterus. No injection or drainage. ENT: Nose without bleeding, purulent drainage. Throat without erythema, tonsil lar hypertrophy or exudate. Airway patent. NECK: Trachea midline. Non tender CARDIOVASCULAR: Regular rate and rhythm without murmurs, gallops, or rubs. RESPIRATORY: Decreased breath sounds throughout with expiratory wheeze, no rales, rhonchi noted GASTROINTESTINAL: Abdomen soft, non-tender, nondistended. EXTREMITIES: No edema or joint tenderness. BACK: Nontender without deformity or crepitance. No flank tenderness. NEURO: AOx3. SKIN: No rash or erythema of visible areas Initial Vital Signs Initial Vital Signs: Vital Signs Temperature 97.6 F 07/22/20 19:20 Pulse Rate 108 H 07/22/20 19:20 Respiratory Rate 28 H 07/22/20 19:20 Blood Pressure 192/99 H 07/22/20 19:20 Pulse Oximetry 96 07/22/20 19:20 Course Course Course Narrative: Patient demonstrates significant improvement of the above- stated therapies. Multiple diagnoses considered including COPD exacerbation, pneumonia, COVID, pulmonary embolism like but thought unlikely given lack of elements of history, physical. D-dimer is slightly elevated but negative when age corrected, therefore no CTA ordered. Extensive return precautions given to patient and , questions answered to their apparent satisfaction Orders Ordered: ED Orders 07/22/20 19:21 XR chest 2V Stat 07/22/20 19:25 COVID19 -Nasal swab/Pre-Proc Stat 07/22/20 19:30 Complete Blood Count AUTO DIFF Stat Comprehensive Metabolic Panel Stat D Dimer Stat Troponin & CK Cardiac Panel Stat Discontinued Medications Albuterol (Albuterol 2.5 Mg/3 Ml Neb (Adult)) 2.5 mg INH NOW ONE Stop: 07/22/20 20:48 Last Admin: 07/22/20 20:49 Dose: 2.5 mg Documented by: ANNABELLE Albuterol/Ipratropium (Albuterol/Ipratropium 3 Ml Ampul) 3 ml INH NOW ONE Stop: 07/22/20 19:54 Last Admin: 07/22/20 19:56 Dose: 3 ml Documented by: ANNABELLE Albuterol/Ipratropium (Albuterol/Ipratropium 3 Ml Ampul) 3 ml INH NOW ONE Stop: 07/22/20 20:13 Last Admin: 07/22/20 20:13 Dose: 3 ml Documented by: ANNABELLE Sodium Chloride (Normal Saline 0.9%) 1,000 mls @ 125 mls/hr IV CONT SHAYAN Last Infusion: 07/22/20 21:31 Dose: 0 mls/hr Documented by: Admin: 07/22/20 19:53 Dose: 125 mls/hr Documented by: TERRENCE Magnesium Sulfate (Magnesium Sulfate) 2 gm in 50 mls @ 200 mls/hr IV NOW ONE Stop: 07/22/20 20:52 Last Infusion: 07/22/20 21:22 Dose: 0 mls/hr Documented by: TERRENCE Cosigned by: UBALDO Admin: 07/22/20 20:55 Dose: 175 mls/hr Documented by: TERRENCE Cosigned by: KARIN Methylprednisolone (Methylprednisolone 125 Mg/2 Ml Vial) 125 mg IV NOW ONE Stop: 07/22/20 19:49 Last Admin: 07/22/20 19:52 Dose: 125 mg Documented by: TERRENCE Vital Signs Vital signs: Vital Signs - 8 hr 07/22/20 19:20 07/22/20 19:25 07/22/20 19:30 Temperature 97.6 F Pulse Rate 108 H 96 H 88 Respiratory Rate 28 H 28 H 19 Blood Pressure 192/99 H Pulse Oximetry 96 99 98 07/22/20 19:32 07/22/20 19:44 07/22/20 19:53 Temperature Pulse Rate 88 92 H 96 H Respiratory Rate 22 28 H 20 Blood Pressure 157/77 H Pulse Oximetry 97 98 98 07/22/20 19:57 07/22/20 20:00 07/22/20 20:14 Temperature Pulse Rate 91 H 91 H 90 Respiratory Rate 14 10 L 18 Blood Pressure 147/73 H 133/78 Pulse Oximetry 97 96 98 07/22/20 20:15 07/22/20 20:30 07/22/20 20:45 Temperature Pulse Rate 89 85 80 Respiratory Rate 15 15 12 Blood Pressure 135/80 140/81 137/69 Pulse Oximetry 98 95 97 07/22/20 20:50 07/22/20 21:00 07/22/20 21:15 Temperature Pulse Rate 85 78 80 Respiratory Rate 18 14 16 Blood Pressure 152/75 H 146/69 H Pulse Oximetry 98 96 97 07/22/20 21:30 07/22/20 21:38 Temperature Pulse Rate 82 81 Respiratory Rate 16 24 Blood Pressure 149/70 H 149/70 H Pulse Oximetry 97 97 MDM - SOB/Dyspnea Lab Data Result diagrams: 07/22/20 19:30 07/22/20 19:30 Labs: Lab Results 07/22/20 07/22/20 07/22/20 Range/Units 19:25 19:30 19:30 WBC 9.7 (4.5-11.0) X10^3/uL RBC 6.15 H (4.5-5.9) X10^6/uL Hgb 13.6 (13.5-17.5) g/dL Hct 41.7 (41-53) % MCV 67.7 L (80-100) fL MCH 22.0 L (26-34) PG MCHC 32.5 (30-36) % RDW 16.7 H (11.6-14.8) % Plt Count 304 (150-400) X10^3/uL Neut % (Auto) 59.4 (50-75) % Lymph % (Auto) 21.6 L (25-40) % Mccreary % (Auto) 6.9 (3-14) % Eos % (Auto) 10.3 H (2-4) % Baso % (Auto) 1.8 (0-2) % Neut # (Auto) 5800 (1523-7736) /uL Lymph # (Auto) 2100 (9865-0211) /uL Mccreary # (Auto) 700 (0-900) /uL Eos # (Auto) 1000 H (0-450) /uL Baso # (Auto) 200 H (0-100) /uL RBC Morphology Not Reportable Hypochromasia 2+ H Microcytosis 2+ H D-Dimer 430 H (<230) ng/mL Sodium (137-145) mmol/L Potassium (3.4-5.1) mmol/L Chloride (98-107) mmol/L Carbon Dioxide (22-32) mmol/L BUN (9-20) mg/dL Creatinine (0.66-1.25) mg/dL Estimated GFR (>60) mL/min BUN/Creatinine Ratio (6-22) Glucose (80-110) mg/dL Calcium (8.4-10.2) mg/dL Total Bilirubin (0.2-1.3) mg/dL AST (17-59) IU/L ALT (<50) IU/L Alkaline Phosphatase (38-126) U/L Total Creatine Kinase (55-170) U/L CK-MB (CK-2) (<2.37) ng/mL CK-MB (CK-2) Rel Index (1.5-5.0) % Troponin I (0.01-0.034) ng/mL Total Protein (6.3-8.2) g/dL Albumin (3.5-5.0) g/dL Globulin (1.7-4.1) g/dL Albumin/Globulin Ratio (1.0-2.8) SARS-CoV-2 (PCR) Negative (Negative) 07/22/20 Range/Units 19:30 WBC (4.5-11.0) X10^3/uL RBC (4.5-5.9) X10^6/uL Hgb (13.5-17.5) g/dL Hct (41-53) % MCV (80-100) fL MCH (26-34) PG MCHC (30-36) % RDW (11.6-14.8) % Plt Count (150-400) X10^3/uL Neut % (Auto) (50-75) % Lymph % (Auto) (25-40) % Mccreary % (Auto) (3-14) % Eos % (Auto) (2-4) % Baso % (Auto) (0-2) % Neut # (Auto) (5994-6856) /uL Lymph # (Auto) (1204-0891) /uL Mccreary # (Auto) (0-900) /uL Eos # (Auto) (0-450) /uL Baso # (Auto) (0-100) /uL RBC Morphology Hypochromasia Microcytosis D-Dimer (<230) ng/mL Sodium 141 (137-145) mmol/L Potassium 3.5 (3.4-5.1) mmol/L Chloride 106 (98-107) mmol/L Carbon Dioxide 24 (22-32) mmol/L BUN 13 (9-20) mg/dL Creatinine 0.79 (0.66-1.25) mg/dL Estimated GFR > 60.0 (>60) mL/min BUN/Creatinine Ratio 16.5 (6-22) Glucose 127 H (80-110) mg/dL Calcium 9.5 (8.4-10.2) mg/dL Total Bilirubin 0.3 (0.2-1.3) mg/dL AST 39 (17-59) IU/L ALT 34 (<50) IU/L Alkaline Phosphatase 69 (38-126) U/L Total Creatine Kinase 225 H (55-170) U/L CK-MB (CK-2) 1.86 (<2.37) ng/mL CK-MB (CK-2) Rel Index 0.8 L (1.5-5.0) % Troponin I < 0.012 (0.01-0.034) ng/mL Total Protein 7.8 (6.3-8.2) g/dL Albumin 4.5 (3.5-5.0) g/dL Globulin 3.3 (1.7-4.1) g/dL Albumin/Globulin Ratio 1.4 (1.0-2.8) SARS-CoV-2 (PCR) (Negative) Discharge Plan Departure Patient Disposition: Home Clinical Impression: Acute exacerbation of chronic obstructive pulmonary disease, Atypical pneumonia Instructions: Chronic Obstructive Pulmonary Disease Activity Restrictions/Additional Instructions: *You have been diagnosed with [acute exacerbation of COPD with atypical pneumonia] *What to do: *Take medications as directed: Prescription sent to [facility] in [place] *Follow up with your primary care provider in 2-3 days, call for an appointment. Let them know you were seen in the Emergency Department and that we ask that you be seen in follow up *Return to ER if you should have any new, worsening or concerning symptoms Prescriptions: New prednisone 10 mg tablet See Rx Instructions .ROUTE .COMPLEX Qty: 30 RF: 0 albuterol sulfate 2.5 mg /3 mL (0.083 %) solution for nebulization 2.5 mg INHALATION Q4-6H PRN (Reason: shortness of breath or wheezing) Qty: 90 RF: 0 doxycycline hyclate 100 mg tablet 100 mg PO BID Qty: 20 RF: 0 No Action omeprazole 20 mg capsule,delayed release(DR/EC) 20 mg PO DAILY RF: 0 albuterol sulfate [ProAir HFA] 90 mcg/actuation HFA aerosol inhaler 1 puff Inhalation PRN PRN (Reason: Shortness Of Breath) RF: 0 fluticasone propionate 50 mcg/actuation spray,suspension 1 spray Intranasal DIRECTED RF: 0 loratadine 10 mg tablet 10 mg PO DAILY RF: 0 doxycycline hyclate 100 mg capsule 100 mg PO BID Qty: 14 RF: 0 prednisone 50 mg tablet 50 mg PO DAILY Qty: 5 RF: 0 prednisone 20 mg tablet 60 mg PO DAILY Qty: 15 RF: 0 albuterol sulfate 2.5 mg /3 mL (0.083 %) solution for nebulization 2.5 mg INHALATION Q4-6H PRN (Reason: shortness of breath or wheezing) Qty: 90 RF: 0 albuterol sulfate 0.63 mg/3 mL solution for nebulization 0.63 mg INHALATION Q4-6H PRN (Reason: shortness of breath or wheezing) Qty: 75 RF: 0 prednisone 20 mg tablet 40 mg PO DAILY Qty: 10 RF: 0 Referrals: Zeinab Prasad ARNP [Primary Care Provider] -
[2020-07-22 20:17] LABS: Troponin I < 0.012 ng/mL (0.01-0.034)
[2020-07-22 20:21] LABS: CKMB % Relative Index 0.8 % (1.5-5.0); Creatine Kinase MB 1.86 ng/mL (<2.37)
[2020-07-22 20:27] LABS: Hypochromasia 2+; Microcytosis 2+
[2020-07-22] MEDS: ALBUTEROL 2.5 MG/3 ML NEB (ADULT) INH (20:49)
[2020-07-22] MEDS: MAGNESIUM SULFATE 2 GM/50 ML PIGGYBACK IV (20:55)
== END 2020-07-22 21:40 | disposition home or self-care (01) ==
PROVIDERS: Emergency Provider Emergency Medicine; PCP Nurse Practitioner Family
DX: J44.1 Chronic obstructive pulmonary disease with (acute) exacerbation (principal); J18.9 Pneumonia, unspecified organism; Z20.822 Contact with and (suspected) exposure to COVID-19
CPT/HCPCS: 36415; 71046; 80053; 82550; 82553; 84484; 85025; 85379; 87635; 93005; 94150; 94640; 96361; 96365; 96375; 99284; C9803; J2930; J3475; J7613

== ENCOUNTER 2020-08-06 05:49 | Emergency (ER) | payer OTHER, SELFPAY ==
[2020-08-06] VITALS (11 sets, daily range): BP systolic 129–147; BP diastolic 79–94; PULSE 69–80; RESP 22–26; O2SAT 96–100; BMI 27.3
--- NOTE | 2020-08-06 06:12 | ED_ITS ---
HPI - SOB/Dyspnea <Mile Donis, - Last Filed: 08/07/20 04:16> General Chief Complaint: Shortness of Breath/Dyspnea Stated Complaint: Copd, can't breathe Time Seen by Provider: 08/06/20 05:54 Source: patient Mode of arrival: Ambulatory Limitations: no limitations History of Present Illness HPI Narrative: This is a 59-year-old male who comes emergency department with complaint of increasing shortness of breath over the last 3 days. Patient states started with shortness of breath and wheezing. He has developed chest pressure centrally. He has not any fevers or chills. He has had a cough which has been productive initially yellowish in color and now darkened discoloration. Patient denies any nausea or vomiting. He denies any other GI urinary symptoms. Denies any swelling in his extremities. Does have a history of COPD. He was recently on a prednisone taper 2 weeks ago is a as well as doxycycline. He uses respimat steroid inhaler daily and has been using albuterol inhaler once hourly. Patient does take medication for hypertension as well as GERD. He denies any recent surgeries. He is accompanied by his . Related Data Home Medications Medication Instructions Recorded Confirmed albuterol sulfate [ProAir HFA] 1 puff INHALATION PRN PRN 06/18/18 06/18/18 fluticasone propionate 1 spray INTRANASAL DIRECTED 06/18/18 loratadine 10 mg PO DAILY 06/18/18 06/18/18 omeprazole 20 mg PO DAILY 06/18/18 06/18/18 Previous Rx's Medication Instructions Recorded doxycycline hyclate 100 mg PO BID #14 cap 06/18/18 prednisone 50 mg PO DAILY #5 tab 06/18/18 albuterol sulfate 2.5 mg INHALATION Q4-6H PRN #90 ml 06/28/18 prednisone 60 mg PO DAILY #15 tab 06/28/18 albuterol sulfate 0.63 mg INHALATION Q4-6H PRN #75 ml 10/02/18 prednisone 40 mg PO DAILY #10 tab 10/02/18 albuterol sulfate 2.5 mg INHALATION Q4-6H PRN #90 ml 07/22/20 doxycycline hyclate 100 mg PO BID #20 tab 07/22/20 prednisone See Rx Instructions .ROUTE 07/22/20 .COMPLEX #30 tab prednisone See Rx Instructions .ROUTE 08/06/20 .COMPLEX #30 tab Allergies Allergy/AdvReac Type Severity Reaction Status Date / Time No Known Drug Allergies Allergy Verified 06/18/18 11:47 Review of Systems <Mile Donis DO - Last Filed: 08/07/20 04:16> Review of Systems ROS Unobtainable: All systems reviewed & are unremarkable except as noted in HPI and below Patient History <Mile Donis DO - Last Filed: 08/07/20 04:16> Medical History (Updated 08/06/20 @ 08:55 by Jackson Klein DO) Asthma Social History Smoking Status: Former smoker Smoking Status: Former smoker alcohol intake frequency: a few times a month Substance Use Type: does not use Exam <Mile Donis DO - Last Filed: 08/07/20 04:16> Narrative Exam Narrative: GENERAL: Alert and oriented x three, well-nourished male in moderate distress. HEENT: Head normocephalic, atraumatic, EOMI, pupils reactive, face symmetric, moist mucous membranes NECK: Supple, full range of motion CARDIOVASCULAR: Regular rate and rhythm without murmurs, rubs or gallops. RESPIRATORY: Breath sounds are decreased bilaterally, no wheezes rales or rhonchi. Positive for tachypnea. Speaks in 4-5 word sentences. ABDOMEN: Soft, nontender. Normoactive bowel sounds all 4 quadrants. No guarding or rebound, rigidity, no mass : No CVA tenderness EXTREMITIES: Normal range of motion, no edema bilateral lower extremities. Neurovascularly intact NEUROLOGICAL: Cranial nerves II through XII grossly intact. Moving all extremities SKIN: Warm, dry, no petechiae, no rashes or lesions. Initial Vital Signs Initial Vital Signs: Vital Signs Pulse Rate 80 08/06/20 05:58 Respiratory Rate 26 H 08/06/20 05:58 Blood Pressure 129/81 08/06/20 05:58 Pulse Oximetry 97 08/06/20 05:58 <Jackson Klein DO - Last Filed: 08/06/20 09:20> Initial Vital Signs Initial Vital Signs: Vital Signs Pulse Rate 80 08/06/20 05:58 Respiratory Rate 26 H 08/06/20 05:58 Blood Pressure 129/81 08/06/20 05:58 Pulse Oximetry 97 08/06/20 05:58 Course <Mile Donis DO - Last Filed: 08/07/20 04:16> Orders Ordered: Discontinued Medications Albuterol/Ipratropium (Albuterol/Ipratropium 3 Ml Ampul) 3 ml INH NOW ONE Stop: 08/06/20 06:12 Last Admin: 08/06/20 06:45 Dose: 3 ml Documented by: ANNABELLE Magnesium Sulfate (Magnesium Sulfate) 2 gm in 50 mls @ 25 mls/hr IV NOW ONE Stop: 08/06/20 08:10 Last Infusion: 08/06/20 09:48 Dose: 0 mls/hr Documented by: ELVIRA Cosigned by: MICHAEL Admin: 08/06/20 06:21 Dose: 25 mls/hr Documented by: UBALDO Cosigned by: FRANCIS Methylprednisolone (Methylprednisolone 125 Mg/2 Ml Vial) 125 mg IV NOW ONE Stop: 08/06/20 06:12 Last Admin: 08/06/20 06:21 Dose: 125 mg Documented by: UBALDO Vital Signs Vital signs: Vital Signs - 8 hr 08/06/20 05:58 08/06/20 06:00 08/06/20 06:30 Pulse Rate 80 78 74 Respiratory Rate 26 H Blood Pressure 129/81 129/81 131/84 Pulse Oximetry 97 97 97 08/06/20 06:45 08/06/20 07:00 08/06/20 07:30 Pulse Rate 80 70 69 Respiratory Rate 22 Blood Pressure 134/79 130/82 Pulse Oximetry 96 99 98 08/06/20 08:03 08/06/20 08:04 08/06/20 08:32 Pulse Rate 79 78 71 Respiratory Rate Blood Pressure 147/91 H Pulse Oximetry 100 98 98 08/06/20 08:54 08/06/20 09:00 Pulse Rate 76 69 Respiratory Rate Blood Pressure 137/94 H 134/86 Pulse Oximetry 97 97 <Jackson Klein DO - Last Filed: 08/06/20 09:20> Course Course Narrative: Patient feeling tremendous improvement after the above-stated therapies. His vital signs have normalized, lungs much more clear on exam. CT obtained and no significant or critical findings noted. He is able to ambulate to the bathroom without difficulty. He has been given return precautions and questions answered to his apparent satisfaction Orders Ordered: Discontinued Medications Albuterol/Ipratropium (Albuterol/Ipratropium 3 Ml Ampul) 3 ml INH NOW ONE Stop: 08/06/20 06:12 Last Admin: 08/06/20 06:45 Dose: 3 ml Documented by: ANNABELLE Magnesium Sulfate (Magnesium Sulfate) 2 gm in 50 mls @ 25 mls/hr IV NOW ONE Stop: 08/06/20 08:10 Last Infusion: 08/06/20 09:48 Dose: 0 mls/hr Documented by: ELVIRA Cosigned by: MICHAEL Admin: 08/06/20 06:21 Dose: 25 mls/hr Documented by: UBALDO Cosigned by: FRANCIS Methylprednisolone (Methylprednisolone 125 Mg/2 Ml Vial) 125 mg IV NOW ONE Stop: 08/06/20 06:12 Last Admin: 08/06/20 06:21 Dose: 125 mg Documented by: UBALDO Vital Signs Vital signs: Vital Signs - 8 hr 08/06/20 05:58 08/06/20 06:00 08/06/20 06:30 Pulse Rate 80 78 74 Respiratory Rate 26 H Blood Pressure 129/81 129/81 131/84 Pulse Oximetry 97 97 97 08/06/20 06:45 08/06/20 07:00 08/06/20 07:30 Pulse Rate 80 70 69 Respiratory Rate 22 Blood Pressure 134/79 130/82 Pulse Oximetry 96 99 98 08/06/20 08:03 08/06/20 08:04 08/06/20 08:32 Pulse Rate 79 78 71 Respiratory Rate Blood Pressure 147/91 H Pulse Oximetry 100 98 98 08/06/20 08:54 08/06/20 09:00 Pulse Rate 76 69 Respiratory Rate Blood Pressure 137/94 H 134/86 Pulse Oximetry 97 97 MDM - SOB/Dyspnea <Mile Donis DO - Last Filed: 08/07/20 04:16> Lab Data Attestation: I reviewed the patient's lab results. Result diagrams: 08/06/20 06:05 08/06/20 06:05 Labs: Lab Results 08/06/20 08/06/20 08/06/20 Range/Units 05:55 06:05 06:05 WBC 8.6 (4.5-11.0) X10^3/uL RBC 5.97 H (4.5-5.9) X10^6/uL Hgb 12.7 L (13.5-17.5) g/dL Hct 40.3 L (41-53) % MCV 67.5 L (80-100) fL MCH 21.3 L (26-34) PG MCHC 31.6 (30-36) % RDW 16.5 H (11.6-14.8) % Plt Count 281 (150-400) X10^3/uL Neut % (Auto) 59.5 (50-75) % Lymph % (Auto) 17.6 L (25-40) % [place] % (Auto) 7.0 (3-14) % Eos % (Auto) 14.8 H (2-4) % Baso % (Auto) 1.1 (0-2) % Neut # (Auto) 5100 (0186-6201) /uL Lymph # (Auto) 1500 (2056-5023) /uL [place] # (Auto) 600 (0-900) /uL Eos # (Auto) 1300 H (0-450) /uL Baso # (Auto) 100 (0-100) /uL RBC Morphology Not Reportable Macrocytosis 3+ H PT 10.6 (10.1-12.7) SECONDS INR 0.9 (0.9-1.3) APTT 37 H (26.4-36.2) SECONDS Sodium (137-145) mmol/L Potassium (3.4-5.1) mmol/L Chloride (98-107) mmol/L Carbon Dioxide (22-32) mmol/L BUN (9-20) mg/dL Creatinine (0.66-1.25) mg/dL Estimated GFR (>60) mL/min BUN/Creatinine Ratio (6-22) Glucose (80-110) mg/dL Lactate (0.7-2.1) mmol/L Calcium (8.4-10.2) mg/dL Magnesium (1.6-2.3) mg/dL Total Creatine Kinase (55-170) U/L CK-MB (CK-2) CK-MB (CK-2) Rel Index Troponin I (0.01-0.034) ng/mL NT-Pro-B Natriuret Pep (<125) pg/mL SARS-CoV-2 (PCR) Negative (Negative) 08/06/20 08/06/20 Range/Units 06:05 06:05 WBC (4.5-11.0) X10^3/uL RBC (4.5-5.9) X10^6/uL Hgb (13.5-17.5) g/dL Hct (41-53) % MCV (80-100) fL MCH (26-34) PG MCHC (30-36) % RDW (11.6-14.8) % Plt Count (150-400) X10^3/uL Neut % (Auto) (50-75) % Lymph % (Auto) (25-40) % [place] % (Auto) (3-14) % Eos % (Auto) (2-4) % Baso % (Auto) (0-2) % Neut # (Auto) (1989-4290) /uL Lymph # (Auto) (9149-8292) /uL [place] # (Auto) (0-900) /uL Eos # (Auto) (0-450) /uL Baso # (Auto) (0-100) /uL RBC Morphology Macrocytosis PT (10.1-12.7) SECONDS INR (0.9-1.3) APTT (26.4-36.2) SECONDS Sodium 139 (137-145) mmol/L Potassium 4.1 (3.4-5.1) mmol/L Chloride 107 (98-107) mmol/L Carbon Dioxide 26 (22-32) mmol/L BUN 15 (9-20) mg/dL Creatinine 0.77 (0.66-1.25) mg/dL Estimated GFR > 60.0 (>60) mL/min BUN/Creatinine Ratio 19.5 (6-22) Glucose 108 (80-110) mg/dL Lactate 1.1 (0.7-2.1) mmol/L Calcium 9.3 (8.4-10.2) mg/dL Magnesium 2.2 (1.6-2.3) mg/dL Total Creatine Kinase 100 (55-170) U/L CK-MB (CK-2) TNP CK-MB (CK-2) Rel Index TNP Troponin I < 0.012 (0.01-0.034) ng/mL NT-Pro-B Natriuret Pep 71 (<125) pg/mL SARS-CoV-2 (PCR) (Negative) Imaging Data Chest x-ray: Radiologist's Impression: prelim-changes concerning for possible hilar mass and recommend CT chest for further evaluation. ECG Data Attestation: I personally reviewed and interpreted this ECG as follows: Prior ECG tracings: available for review Interpretation: Sinus rhythm rate of 78 TN 154 QRS 82 and QTC 428. Patient has no J-point elevation in lateral leads but appears to be similar to prior EKG from May of 2019 patient has an EKG from 07/22/2020 which also shows Q-waves which were also present in the prior as well. MDM Narrative Medical decision making narrative: This is a 59-year-old male comes in with worsening shortness of breath history of COPD or reactive airway. Patient chest x-ray shows possible hilar mass so CT angiography was obtained. Patient received Solu-Medrol, Mag as well as breathing treatment. He was improving with this but patient was signed out to Dr. Klein while awaiting CT imaging. Patient negative for covid on swab, labs show a very mild anemia which is microcytic. Patient has macrocytosis is not new. Troponin is negative with normal electrolytes and renal function and no acute EKG changes appreciated. <Jackson Klein, DO - Last Filed: 08/06/20 09:20> Lab Data Labs: Lab Results 08/06/20 08/06/20 08/06/20 Range/Units 05:55 06:05 06:05 WBC 8.6 (4.5-11.0) X10^3/uL RBC 5.97 H (4.5-5.9) X10^6/uL Hgb 12.7 L (13.5-17.5) g/dL Hct 40.3 L (41-53) % MCV 67.5 L (80-100) fL MCH 21.3 L (26-34) PG MCHC 31.6 (30-36) % RDW 16.5 H (11.6-14.8) % Plt Count 281 (150-400) X10^3/uL Neut % (Auto) 59.5 (50-75) % Lymph % (Auto) 17.6 L (25-40) % [place] % (Auto) 7.0 (3-14) % Eos % (Auto) 14.8 H (2-4) % Baso % (Auto) 1.1 (0-2) % Neut # (Auto) 5100 (6310-9631) /uL Lymph # (Auto) 1500 (1453-7218) /uL [place] # (Auto) 600 (0-900) /uL Eos # (Auto) 1300 H (0-450) /uL Baso # (Auto) 100 (0-100) /uL RBC Morphology Not Reportable Macrocytosis 3+ H PT 10.6 (10.1-12.7) SECONDS INR 0.9 (0.9-1.3) APTT 37 H (26.4-36.2) SECONDS Sodium (137-145) mmol/L Potassium (3.4-5.1) mmol/L Chloride (98-107) mmol/L Carbon Dioxide (22-32) mmol/L BUN (9-20) mg/dL Creatinine (0.66-1.25) mg/dL Estimated GFR (>60) mL/min BUN/Creatinine Ratio (6-22) Glucose (80-110) mg/dL Lactate (0.7-2.1) mmol/L Calcium (8.4-10.2) mg/dL Magnesium (1.6-2.3) mg/dL Total Creatine Kinase (55-170) U/L CK-MB (CK-2) CK-MB (CK-2) Rel Index Troponin I (0.01-0.034) ng/mL NT-Pro-B Natriuret Pep (<125) pg/mL SARS-CoV-2 (PCR) Negative (Negative) 08/06/20 08/06/20 Range/Units 06:05 06:05 WBC (4.5-11.0) X10^3/uL RBC (4.5-5.9) X10^6/uL Hgb (13.5-17.5) g/dL Hct (41-53) % MCV (80-100) fL MCH (26-34) PG MCHC (30-36) % RDW (11.6-14.8) % Plt Count (150-400) X10^3/uL Neut % (Auto) (50-75) % Lymph % (Auto) (25-40) % [place] % (Auto) (3-14) % Eos % (Auto) (2-4) % Baso % (Auto) (0-2) % Neut # (Auto) (2560-9753) /uL Lymph # (Auto) (1434-3355) /uL [place] # (Auto) (0-900) /uL Eos # (Auto) (0-450) /uL Baso # (Auto) (0-100) /uL RBC Morphology Macrocytosis PT (10.1-12.7) SECONDS INR (0.9-1.3) APTT (26.4-36.2) SECONDS Sodium 139 (137-145) mmol/L Potassium 4.1 (3.4-5.1) mmol/L Chloride 107 (98-107) mmol/L Carbon Dioxide 26 (22-32) mmol/L BUN 15 (9-20) mg/dL Creatinine 0.77 (0.66-1.25) mg/dL Estimated GFR > 60.0 (>60) mL/min BUN/Creatinine Ratio 19.5 (6-22) Glucose 108 (80-110) mg/dL Lactate 1.1 (0.7-2.1) mmol/L Calcium 9.3 (8.4-10.2) mg/dL Magnesium 2.2 (1.6-2.3) mg/dL Total Creatine Kinase 100 (55-170) U/L CK-MB (CK-2) TNP CK-MB (CK-2) Rel Index TNP Troponin I < 0.012 (0.01-0.034) ng/mL NT-Pro-B Natriuret Pep 71 (<125) pg/mL SARS-CoV-2 (PCR) (Negative) Discharge Plan Departure Patient Disposition: Home Clinical Impression: Acute dyspnea, Asthma with exacerbation Instructions: DI for Asthma -- Adult Activity Restrictions/Additional Instructions: *You have been diagnosed with [acute exacerbation of asthma] *What to do: *Please continue to take your regular medications as directed. [ x] New medication prescriptions sent to your pharmacy: [ ] New medication written as a paper prescription [ ] No new medications given *Please follow up with your primary care provider in 2-3 days, call for an appointment. Let them know you were seen in the Emergency Department and that we ask that you be seen in follow up. We will electronically transmit a record of today's note if your PCP is in our system *If you do not have a primary care provider please contact the [facility] Resource line at [phone]. They will ask some questions about your medical history and help get you set up with a doctor in the community. *Return to Emergency Department if you should have any new, worsening or concerning symptoms, such as [fever greater than 101 F, shaking chills, worsening pain, persistent vomiting or other bothersome symptoms] Prescriptions: New prednisone 10 mg tablet See Rx Instructions .ROUTE .COMPLEX Qty: 30 RF: 0 No Action omeprazole 20 mg capsule,delayed release(DR/EC) 20 mg PO DAILY RF: 0 albuterol sulfate [ProAir HFA] 90 mcg/actuation HFA aerosol inhaler 1 puff Inhalation PRN PRN (Reason: Shortness Of Breath) RF: 0 fluticasone propionate 50 mcg/actuation spray,suspension 1 spray Intranasal DIRECTED RF: 0 loratadine 10 mg tablet 10 mg PO DAILY RF: 0 doxycycline hyclate 100 mg capsule 100 mg PO BID Qty: 14 RF: 0 prednisone 50 mg tablet 50 mg PO DAILY Qty: 5 RF: 0 prednisone 20 mg tablet 60 mg PO DAILY Qty: 15 RF: 0 albuterol sulfate 2.5 mg /3 mL (0.083 %) solution for nebulization 2.5 mg INHALATION Q4-6H PRN (Reason: shortness of breath or wheezing) Qty: 90 RF: 0 albuterol sulfate 0.63 mg/3 mL solution for nebulization 0.63 mg INHALATION Q4-6H PRN (Reason: shortness of breath or wheezing) Qty: 75 RF: 0 prednisone 20 mg tablet 40 mg PO DAILY Qty: 10 RF: 0 prednisone 10 mg tablet See Rx Instructions .ROUTE .COMPLEX Qty: 30 RF: 0 albuterol sulfate 2.5 mg /3 mL (0.083 %) solution for nebulization 2.5 mg INHALATION Q4-6H PRN (Reason: shortness of breath or wheezing) Qty: 90 RF: 0 doxycycline hyclate 100 mg tablet 100 mg PO BID Qty: 20 RF: 0 Referrals: Zeinab Prasad ARNP [Primary Care Provider] - Stand Alone Forms: Work Release Note
--- NOTE | 2020-08-06 06:12 | DI.RAD.S_ITS ---
PROCEDURE: XR CHEST 1V INDICATIONS: dyspnea, chest pain TECHNIQUE: One view of the chest was acquired. COMPARISON: None. FINDINGS: Surgical changes and devices: None. Lungs and pleura: Lungs are clear. No pleural effusions or pneumothorax. Mediastinum: Mediastinal contours appear normal. Heart size is normal. Bones and chest wall: No suspicious bony lesions. Overlying soft tissues appear unremarkable. IMPRESSION: No acute cardiopulmonary disease process. Dictated by: Cecilia Diaz MD, PhD on 08/06/2020 at 9:19 Approved by: Cecilia Diaz MD, PhD on 08/06/2020 at 9:20
[2020-08-06] MEDS: methylPREDNISolone 125 MG/2 ML VIAL IV (06:21)
[2020-08-06] MEDS: MAGNESIUM SULFATE 2 GM/50 ML PIGGYBACK IV (06:21)
[2020-08-06 06:24] LABS: Basophils Absolute Auto 100 /uL (0-100); Basophils Percent Auto 1.1 % (0-2); Eosinophils Absolute Auto 1300 /uL (0-450); Eosinophils Percent Auto 14.8 % (2-4); Hematocrit 40.3 % (41-53); Hemoglobin 12.7 g/dL (13.5-17.5); Lymphocytes Absolute Auto 1500 /uL (1100-4500); Lymphocytes Percent Auto 17.6 % (25-40); Mean Corpuscular HGB Conc 31.6 % (30-36); Mean Corpuscular Hemoglobin 21.3 PG (26-34); Mean Corpuscular Volume 67.5 fL (80-100); Monocytes Absolute Auto 600 /uL (0-900); Neutrophils Absolute Auto 5100 /uL (1500-7000); Neutrophils Percent Auto 59.5 % (50-75); Platelet Count 281 X10^3/uL (150-400); Red Blood Cell Count 5.97 X10^6/uL (4.5-5.9); Red Cell Distribution Width 16.5 % (11.6-14.8); White Blood Cell Count 8.6 X10^3/uL (4.5-11.0)
[2020-08-06 06:33] LABS: COVID19 -Nasal RAPID Negative (Negative)
[2020-08-06 06:34] LABS: Add Manual Diff / Slide Review SLIDE REVIEW
[2020-08-06 06:42] LABS: INR 0.9 (0.9-1.3); Prothrombin Time 10.6 SECONDS (10.1-12.7)
[2020-08-06 06:44] LABS: Lactate (Lactic Acid) 1.1 mmol/L (0.7-2.1)
[2020-08-06 06:45] LABS: BUN Creatinine Ratio 19.5 (6-22); Blood Urea Nitrogen 15 mg/dL (9-20); Calcium 9.3 mg/dL (8.4-10.2); Carbon Dioxide 26 mmol/L (22-32); Chloride 107 mmol/L (98-107); Creatine Kinase 100 U/L (55-170); Estimated Glomerular Filt Rate > 60.0 mL/min (>60); Glucose 108 mg/dL (80-110); HEMOLYSIS < 15 (0-50); Magnesium 2.2 mg/dL (1.6-2.3); PTT Partial Thromboplastin Tim 37 SECONDS (26.4-36.2); Potassium 4.1 mmol/L (3.4-5.1); Sodium 139 mmol/L (137-145)
[2020-08-06] MEDS: ALBUTEROL/IPRATROPIUM 3 ML AMPUL INH (06:45)
[2020-08-06 06:57] LABS: NT-proBNP (BNP-Adult 18+) 71 pg/mL (<125); Troponin I < 0.012 ng/mL (0.01-0.034)
[2020-08-06 07:30] LABS: Macrocytosis 3+
--- NOTE | 2020-08-06 08:03 | DI.CT.S_ITS ---
PROCEDURE: CT CHEST W CON INDICATIONS: sob, ? mass suprahilar region. TECHNIQUE: After the administration of intravenous contrast, 5 mm thick sections acquired from the pulmonary apices to the posterior costophrenic angles. 1 mm axial lung, 5 mm thick coronal and sagittal reformats and 7 mm axial MIP were acquired. For radiation dose reduction, the following was used: automated exposure control, adjustment of mA and/or kV according to patient size. COMPARISON: [facility], CT, CT ABDOMEN PELVIS WITHOUT CONTRAST, 10/14/2019, 16:29. [facility], CR, XR CHEST 1V, 08/06/2020, 6:28. FINDINGS: Image quality: Excellent. Lungs and pleura: No acute air space opacities. Scattered atelectasis in periphery of bilateral lower lung graham are seen. No pleural effusions or pneumothorax. Central and peripheral airways are patent and normal in caliber. Mediastinum: Heart size is mildly enlarged. No pericardial effusion. No mediastinal or hilar adenopathy by size criteria. Thoracic aorta and central pulmonary arteries are normal in size. Mild coronary atherosclerotic calcifications are seen. Esophagus is normal in caliber. No hiatal hernia. Bones and chest wall: No suspicious bony lesions. Subtle cortical irregularity involving right anterolateral 9th rib near costochondral junction, suggestive of age indeterminate fracture. No vertebral body compression fractures. No axillary or supraclavicular adenopathy by size criteria. Thyroid gland is within normal limits. Abdomen: There is focal ill-defined area of hyper enhancement involving right hepatic lobe and measures up to 1.4 x 1.9 cm in size series 2, image 66. Hepatic steatosis is also seen. No gross abnormality is seen in visualized portion of spleen, and pancreas. Upper abdominal bowel loops are normal in caliber. IMPRESSION: 1. No hilar mass or lymphadenopathy. No mediastinal lymphadenopathy. 2. Few scattered atelectasis in periphery of bilateral lower lung graham. No focal infiltrate, pleural effusion or pneumothorax. Airway is patent. 3. Incidentally noted of focal ill-defined area of hyperenhancement involving central right hepatic lobe and is of indeterminate etiology. Dedicated CT or MRI of abdomen with liver protocol can be done on a non urgent basis for further evaluation of this region. Hepatic steatosis. 4. Age indeterminate minimally displaced fracture involving right anterolateral 9th rib near costochondral junction, suggest clinical correlation. Dictated by: Cameron Angel M.D. on 08/06/2020 at 8:17 Approved by: Cameron Angel M.D. on 08/06/2020 at 8:29
== END 2020-08-06 09:53 | disposition home or self-care (01) ==
PROVIDERS: Emergency Medicine; Emergency Provider Emergency Medicine; PCP Nurse Practitioner Family
DX: J45.901 Unspecified asthma with (acute) exacerbation (principal); R06.00 Dyspnea, unspecified; Z20.822 Contact with and (suspected) exposure to COVID-19
CPT/HCPCS: 36415; 71045; 71260; 80048; 82550; 83605; 83735; 83880; 84484; 85025; 85610; 85730; 87070; 87205; 87635; 93005; 93010; 94640; 96361; 96374; 99284; C9803; J2930; J3475; Q9967

== ENCOUNTER → 2020-11-26 14:52 | Outpatient (CLI) | payer OTHER, SELFPAY ==
[2020-11-26 17:19] LABS: COVID19 -Nasal RAPID Negative (Negative)
== END ==
PROVIDERS: PCP Nurse Practitioner Family; Visit Provider Physician Assistant
DX: Z20.822 Contact with and (suspected) exposure to COVID-19 (principal)
CPT/HCPCS: 87635

== ENCOUNTER 2020-11-27 12:35 | Day surgery (SDC) | payer OTHER, SELFPAY ==
[2020-11-27] VITALS (7 sets, daily range): BP systolic 121–144; BP diastolic 78–84; PULSE 57–63; RESP 14–16; TEMP 36.3–36.6; O2SAT 97–99; BMI 28.8
--- NOTE | 2020-11-27 | PATH_ITS ---
[facility] Accession Number: [id number] . 01 Material submitted: . PART A: gastrointestinal site - ANTRUM PART B: gastrointestinal site - GASTRIC POLYP . 01 Clinical history: . DX EGD/COLONOSCOPY . 02 Diagnosis: A. Stomach, Antrum, Biopsy: Antral mucosa with mild chronic gastritis and focal features suggestive of nearby erosion. Negative for Helicobacter organisms by immunohistochemistry. Negative for intestinal metaplasia. Negative for dysplasia and malignancy. . B. Stomach, Polyp, Biopsy: No tissue in container. [facility] 11/30/2020 1357 Local . 02 Electronically signed: . Saadia Russ MD, Pathologist NPI- [id number] . 01 Gross description: . Part A: ANTRUM: Received in formalin are 2 fragment(s) of shaw, soft tissue measuring 0.3 x 0.2 x 0.1 cm to 0.2 x 0.2 x 0.1 cm submitted entirely in 1 cassette(s) Part B: GASTRIC POLYP: Received is a jar containing formalin. No tissue is identified. /BAYLEE 11/28/2020 0649 Local . 02 Microscopic: . A. An immunohistochemical stain was performed to evaluate for Helicobacter organisms and is negative. The control stain showed appropriate reactivity. . * This test was developed and its performance characteristics determined by [facility]. It has not been cleared or approved by the U.S. Food and Drug Administration. The FDA has determined that such clearance or approval is not necessary. This test is used for clinical purposes. It should not be regarded as investigational or for research. . 02 Pathologist provided ICD-10: D50.9 . 02 CPT . 969109, [id number] Performed at: 01 [facility] Cytology [address] [id number] MD Eze Wood MD Phone: [phone] Performed at: 02 [facility] [id number] [place] [id number] MD Saadia Russ MD Phone: [phone]
[2020-11-27] MEDS: LIDOCAINE 4% SOLN 50 ML 20 ML TOP (12:44)
[2020-11-27] MEDS: MIDAZOLAM 5 MG/5 ML VIAL IV (12:44)
[2020-11-27] MEDS: fentaNYL 250 MCG/5 ML INJ IV (12:45)
--- NOTE | 2020-11-27 12:56 | PM.HP.1 ---
History of Present Illness History of Present Illness Date Patient Seen: 11/27/20 Time Patient Seen: 12:57 Chief complaint: DX EGD/COLONOSCOPY Patient History Medical History Asthma Family & Social History Tobacco & Substance use: Smoking Status Former smoker alcohol intake frequency a few times a month Substance Use Type does not use Meds Home Medications and Allergies Home Medications Medication Instructions Recorded Confirmed Type albuterol sulfate 90 mcg/actuation 1 puff INHALATION PRN PRN 06/18/18 06/18/18 History aerosol inhaler doxycycline hyclate 100 mg capsule 100 mg PO BID #14 cap 06/18/18 Rx fluticasone propionate 50 1 spray INTRANASAL DIRECTED 06/18/18 History mcg/actuation nasal spray,suspension loratadine 10 mg tablet 10 mg PO DAILY 06/18/18 06/18/18 History omeprazole 20 mg capsule,delayed 20 mg PO DAILY 06/18/18 06/18/18 History release prednisone 50 mg tablet 50 mg PO DAILY #5 tab 06/18/18 Rx albuterol sulfate 2.5 mg INHALATION Q4-6H PRN #90 ml 06/28/18 Rx prednisone 20 mg tablet 60 mg PO DAILY #15 tab 06/28/18 Rx albuterol sulfate 0.63 mg/3 mL 0.63 mg INHALATION Q4-6H PRN #75 ml 10/02/18 Rx solution for nebulization prednisone 20 mg tablet 40 mg PO DAILY #10 tab 10/02/18 Rx albuterol sulfate 2.5 mg INHALATION Q4-6H PRN #90 ml 07/22/20 Rx doxycycline hyclate 100 mg tablet 100 mg PO BID #20 tab 07/22/20 Rx prednisone 10 mg tablet See Rx Instructions .ROUTE 07/22/20 Rx .COMPLEX #30 tab prednisone 10 mg tablet See Rx Instructions .ROUTE 08/06/20 Rx .COMPLEX #30 tab Allergies Allergy/AdvReac Type Severity Reaction Status Date / Time No Known Drug Allergies Allergy Verified 06/18/18 11:47 Review of Systems Review of Systems ROS: Yes All systems reviewed with the patient and are negative except as otherwise documented Exam Const General: cooperative and comfortable Orientation: alert HENMT Head: normocephalic Ears: external ears normal Nose: external nose normal Face and sinus: normal facial exam Mouth: oral mucosae normal Eyes General: appearance normal, both eyes and all related structures Neck Neck: normal visual inspection Chest Chest: normal inspection of the chest Resp Effort & Inspection: normal respiratory effort Auscultation: clear to auscultation bilaterally Cardio Rate: regular rate Rhythm: regular rhythm Heart Sounds: no murmurs GI Inspection: normal to inspection Palpation: soft and No tender Auscultation: normal bowel sounds Skin General: no rashes or lesions noted and No jaundice Neuro General: patient alert and moves all extremities Cognition: normal cognition Speech: speech normal Extrem General: no pedal edema Psych Appearance: grossly normal Assessment & Plan Assessment & Plan narrative: Chronic symptoms of dysphagia and underlying heartburn. Sounds like there is a moderate amount of oropharyngeal dysphagia but considering the amount of reflux over the years EGD is being pursued for exclusion of stricture Schatzki's etc.. There is a personal history of colon polyps. Colonoscopy is therefore also pursue today.
--- NOTE | 2020-11-27 12:58 | PM.PREOP ---
Pre-operative Note COVID-19 COVID-19 status: Negative Result date/Date tested (Pos, Neg/Pending): 11/26/20 Interval Note History & Physical reviewed/Exam performed by Physician: Yes Changes to H&P: No ASA Class (for procedural sedation): II
[2020-11-27] MEDS: SODIUM CHLORIDE 0.9% 1,000 ML 84 ML IV (13:12)
--- NOTE | 2020-11-27 13:46 | PM.OP.ENDO ---
Operative Date/Time/Diagnoses Date of procedure: 11/27/20 Time of procedure: 13:46 Pre-op diagnosis: Heartburn oropharyngeal dysphagia personal history of colon polyps Post-op diagnosis: same Procedure & Clinicians Study performed: Esophagogastroduodenoscopy with biopsies and colonoscopy Same procedure as scheduled: Yes Indications: Oropharyngeal dysphagia, heartburn, personal history of colon polyps Surgeon: Tanmay Houston Procedure Notes SCOAP/Timeout: Done Procedure in detail: After the risks and benefits were explained, written and verbal informed consent was obtained. The patient was brought into the procedure room and placed into the left lateral decubitus position. Conscious sedation medication was applied as per nursing documentation. The scope was introduced into the mouth through the bite block and advanced under direct visualization to the 2nd portion of the duodenum. The scope was slowly withdrawn carefully examining the mucosa for any defects or lesions. Retroflexed views were accomplished in the stomach. The stomach was decompressed, the scope was then removed from the patient who tolerated the procedure well. The patient was turned around. Digital rectal examination was accomplished. The scope was introduced into the patient and advanced under direct visualization to the cecum as identified by the appendiceal orifice and ileocecal valve. The scope was slowly withdrawn to carefully examine the mucosa for any defects or lesions. Comprehensive imaging was accomplished throughout the rectum including the dentate line. The colon was decompressed, the scope was then removed from the patient who tolerated the procedure well. Sedation 4 mg Versed 100 mcg fentanyl Bowel prep adequate Adult colonoscope Scope withdrawal time: 7 minutes Sedation minutes: 28 Complications: none Impression: 1. Duodenum: This appeared visually normal from the bulb through to the 2nd portion. 2. Stomach: There were a couple of scattered eroded areas in the antrum. No ulcers no outlet obstruction no mass lesions. Antral biopsies were acquired for exclusion of Helicobacter infection. Retroflexed views of the LES were unremarkable. There was a small polyp in the gastric body that was sampled with cold forceps. 3. Esophagus: The squamocolumnar junction correlated with the top of the gastric folds. The GEJ was at roughly 44 cm from the incisors. Patient had subtle LA grade A erosive esophagitis there was no evidence of any Schatzki's ring no stricture no esophageal pathology throughout to account for any swallowing challenges. 4. Colon: No polyps mass lesions or inflammatory features identified throughout. Endoscopic diagnosis 1. Erosive gastropathy 2. Diminutive gastric polyp 3. Otherwise visually unremarkable EGD 4. Visually unremarkable colonoscopy Post-procedure Recommendations: Colonscopy in 5 years Plan for aftercare: 1. Await histopathology 2. Continue regular use of [id number] anti reflux therapy with omeprazole. 3. Repeat colonoscopy 5 years considering personal history of colon polyps. 4. Follow up speech therapy with respect to the oropharyngeal swallowing challenges previously described. Disposition: PACU
== END 2020-11-27 14:40 | disposition home or self-care (01) ==
PROVIDERS: PCP Family Medicine; Referring Provider Internal Medicine Gastroenterology; Visit Provider Internal Medicine Gastroenterology
PROC: 0DJ08ZZ Inspection of Upper Intestinal Tract, Via Natural or Artificial Opening Endoscopic (ICD-10-PCS; CPT 43235; principal; 2020-11-27 13:30)
PROC: 0DJD8ZZ Inspection of Lower Intestinal Tract, Via Natural or Artificial Opening Endoscopic (ICD-10-PCS; CPT 45378; 2020-11-27 13:30)
DX: Z12.11 Encounter for screening for malignant neoplasm of colon (principal); Z86.010 Personal history of colon polyps; D50.9 Iron deficiency anemia, unspecified; J44.9 Chronic obstructive pulmonary disease, unspecified; I10 Essential (primary) hypertension; F43.10 Post-traumatic stress disorder, unspecified; K21.00 Gastro-esophageal reflux disease with esophagitis, without bleeding; K29.50 Unspecified chronic gastritis without bleeding; K31.7 Polyp of stomach and duodenum; K31.9 Disease of stomach and duodenum, unspecified
CPT/HCPCS: 43239; 45378; J2250; J3010

== ENCOUNTER 2021-02-24 08:06 | Emergency (ER) | payer OTHER, SELFPAY ==
[2021-02-24] VITALS (12 sets, daily range): BP systolic 138–171; BP diastolic 74–97; PULSE 79–104; RESP 18–24; TEMP 35.8; O2SAT 94–98
--- NOTE | 2021-02-24 08:37 | ED.SOB ---
HPI - SOB/Dyspnea General Chief Complaint: Shortness of Breath/Dyspnea Stated Complaint: can't breathe Time Seen by Provider: 02/24/21 08:31 Source: patient Mode of arrival: Ambulatory Limitations: no limitations History of Present Illness HPI Narrative: This is a 60-year-old male with history of COPD/asthma that states starting Thursday he started having increasing shortness of breath and using his rescue inhaler at least once daily which is atypical. Starting Thursday into Thursday he started using his nebulizer and was using it every 4 hours to alleviate symptoms which would return. He has been using it q.4 hours overnight and finally came in is he continues to feel quite short of breath. He feels tightness chest but denies pain. He denies fevers. He did state he was little sweaty earlier and is unsure if he had chills. He denies any nausea or vomiting. No issues with bowel movements or urination. States when he lays flat he has to cough and he did cough up some brown productive sputum. Patient states he has not had any new swelling his extremities. He does take omeprazole as well as lisinopril for hypertension. He has not had any known COVID exposures. He has had both of his COVID vaccinations. Patient does work around jet engines and chemicals and states this sometimes seems to exacerbate his symptoms. He has been seen in the emergency department but never required inpatient hospitalization. He had oral prednisone at his last ER visit in July and has not required any additional since then. He does not have any allergies to drugs. He denies any surgeries. Related Data Home Medications Medication Instructions Recorded Confirmed albuterol sulfate 90 mcg/actuation 1 puff INHALATION PRN PRN 06/18/18 11/27/20 aerosol inhaler fluticasone propionate 50 1 spray INTRANASAL DIRECTED 06/18/18 11/27/20 mcg/actuation nasal spray,suspension loratadine 10 mg tablet 10 mg PO DAILY 06/18/18 11/27/20 omeprazole 20 mg capsule,delayed 20 mg PO DAILY 06/18/18 11/27/20 release fluticasone propionate 110 1 puff INHALATION DAILY 11/27/20 11/27/20 mcg/actuation HFA aerosol inhaler (Flovent HFA) Previous Rx's Medication Instructions Recorded albuterol sulfate 2.5 mg (3 mL) INHALATION Q4H PRN 02/24/21 #90 ml albuterol sulfate 2.5 mg (3 mL) INHALATION Q4H PRN 02/24/21 #90 ml prednisone 10 mg tablet See Rx Instructions .ROUTE 02/24/21 .COMPLEX #16 tab prednisone 10 mg tablet See Rx Instructions .ROUTE 02/24/21 .COMPLEX #16 tab Allergies Allergy/AdvReac Type Severity Reaction Status Date / Time No Known Drug Allergies Allergy Verified 06/18/18 11:47 Review of Systems Review of Systems ROS Unobtainable: All systems reviewed & are unremarkable except as noted in HPI and below Constitutional Constitutional: Denies body ache(s), Reports chills, Reports excessive sweating, Denies fever(s), Denies malaise and Denies weakness ENT Ears, Nose, Mouth, and Throat: Denies throat swelling Cardiovascular Cardiovascular: Denies chest pain, Denies irregular heart rhythm, Denies lightheadedness, Denies palpitations and Reports dyspnea Respiratory Respiratory: Reports change in phlegm color (Brown), Reports chest congestion, Denies pain on inspiration, Denies pain with cough, Reports dyspnea, Denies stridor and Reports wheezing Gastrointestinal Gastrointestinal: Denies abdominal pain, Denies change in bowel habits, Denies diarrhea, Denies nausea and Denies vomiting Integumentary/Breasts Skin/Breast: Denies rash Neurologic Neurologic: Denies weakness Endocrine Endocrine: Reports excessive sweating and Denies palpitations Allergic/Immunologic Allergic/Immunologic: Denies urticaria, Denies throat swelling and Reports wheezing Patient History Medical History (Updated 02/24/21 @ 10:00 by Mile Donis DO) Asthma Social History household members: spouse Smoking Status: Former smoker Smoking Status: Former smoker alcohol intake frequency: a few times a month Substance Use Type: does not use Exam Narrative Exam Narrative: GEN: well nourished, well appearing male, alert and oriented x 3, patient appears to be in mild to moderate distress. HEENT: Atraumatic, pupils are equal round reactive to light, extraocular movements are intact, nares are clear. HEART: Regular rate and rhythm without murmur, clicks, rubs. LUNGS:Lungs positive for bilateral wheezes, no rales, crackles, chest moves symmetrically, mild tachypnea. No accessory muscle use. ABD:bowel sounds normal, soft, non-tender, no guarding, rebound, rigidity, no masses noted, no hepatosplenomegaly :No CVA tenderness MSCL: Non-tender, full range of motion, normal gait NEURO:CN 2-12 intact, sensation normal. SKIN: No rash, erythema or other skin changes noted. Initial Vital Signs Initial Vital Signs: Vital Signs Temperature 96.4 F L 02/24/21 08:16 Pulse Rate 104 H 02/24/21 08:16 Respiratory Rate 20 02/24/21 08:16 Blood Pressure 142/87 H 02/24/21 08:16 Pulse Oximetry 95 02/24/21 08:16 Course Orders Ordered: Discontinued Medications Albuterol (Albuterol 2.5 Mg/3 Ml Neb (Adult)) 5 mg INH NOW ONE Stop: 02/24/21 09:33 Last Admin: 02/24/21 09:36 Dose: 5 mg Documented by: ALEX Albuterol/Ipratropium (Albuterol/Ipratropium 3 Ml Ampul) 3 ml INH NOW ONE Stop: 02/24/21 08:46 Last Admin: 02/24/21 09:29 Dose: 3 ml Documented by: ALEX Ipratropium [place] (Ipratropium 0.5 Mg/2.5 Ml Neb) 0.5 mg INH NOW ONE Stop: 02/24/21 09:33 Last Admin: 02/24/21 09:37 Dose: 0.5 mg Documented by: ALEX Methylprednisolone (Methylprednisolone 125 Mg/2 Ml Vial) 125 mg IV NOW ONE Stop: 02/24/21 08:46 Last Admin: 02/24/21 09:17 Dose: 125 mg Documented by: AL Reevaluation(s) Reevaluation #1: Wheeze resolved after duoneb and albuterol neb. Patient is feeling better. Review patient's COVID swab is negative, his labs as well as his chest x-ray today. Time: 09:58 Reevaluation #2: Patient feels much better. He has clear states he feels significantly better than when he came in. His likely a asthma/COPD exacerbations he did do peak flow. Was given a prescription for albuterol nebulized disease almost out as well as prednisone taper. Time: 11:11 Vital Signs Vital signs: Vital Signs - 8 hr 02/24/21 11:00 Pulse Rate 89 Blood Pressure 152/88 H Pulse Oximetry 97 MDM - SOB/Dyspnea Lab Data Result diagrams: 02/24/21 09:12 02/24/21 09:12 Labs: Lab Results 02/24/21 02/24/21 02/24/21 Range/Units 08:20 09:12 09:12 WBC 6.0 (4.5-11.0) X10^3/uL RBC 6.15 H (4.5-5.9) X10^6/uL Hgb 13.4 L (13.5-17.5) g/dL Hct 41.8 (41-53) % MCV 67.9 L (80-100) fL MCH 21.7 L (26-34) PG MCHC 32.0 (30-36) % RDW 16.7 H (11.6-14.8) % Plt Count 305 (150-400) X10^3/uL Neut % (Auto) 50.8 (50-75) % Lymph % (Auto) 24.6 L (25-40) % [place] % (Auto) 9.3 (3-14) % Eos % (Auto) 12.4 H (2-4) % Baso % (Auto) 2.9 H (0-2) % Neut # (Auto) 3000 (9764-1176) /uL Lymph # (Auto) 1500 (2101-0460) /uL [place] # (Auto) 600 (0-900) /uL Eos # (Auto) 700 H (0-450) /uL Baso # (Auto) 200 H (0-100) /uL RBC Morphology See below Microcytosis 2+ H Target Cells 1+ H Sodium (137-145) mmol/L Potassium (3.4-5.1) mmol/L Chloride (98-107) mmol/L Carbon Dioxide (22-32) mmol/L BUN (9-20) mg/dL Creatinine (0.66-1.25) mg/dL Estimated GFR (>60) mL/min BUN/Creatinine Ratio (6-22) Glucose (80-110) mg/dL Lactate (0.7-2.1) mmol/L Calcium (8.4-10.2) mg/dL Magnesium (1.6-2.3) mg/dL Total Creatine Kinase (55-170) U/L CK-MB (CK-2) (<2.37) ng/mL CK-MB (CK-2) Rel Index (1.5-5.0) % Troponin I (0.01-0.034) ng/mL NT-Pro-B Natriuret Pep 33 (<125) pg/mL SARS-CoV-2 (PCR) Negative (Negative) 02/24/21 02/24/21 Range/Units 09:12 09:12 WBC (4.5-11.0) X10^3/uL RBC (4.5-5.9) X10^6/uL Hgb (13.5-17.5) g/dL Hct (41-53) % MCV (80-100) fL MCH (26-34) PG MCHC (30-36) % RDW (11.6-14.8) % Plt Count (150-400) X10^3/uL Neut % (Auto) (50-75) % Lymph % (Auto) (25-40) % [place] % (Auto) (3-14) % Eos % (Auto) (2-4) % Baso % (Auto) (0-2) % Neut # (Auto) (6248-6696) /uL Lymph # (Auto) (0337-1482) /uL [place] # (Auto) (0-900) /uL Eos # (Auto) (0-450) /uL Baso # (Auto) (0-100) /uL RBC Morphology Microcytosis Target Cells Sodium 143 (137-145) mmol/L Potassium 4.0 (3.4-5.1) mmol/L Chloride 107 (98-107) mmol/L Carbon Dioxide 27 (22-32) mmol/L BUN 15 (9-20) mg/dL Creatinine 0.77 (0.66-1.25) mg/dL Estimated GFR > 60.0 (>60) mL/min BUN/Creatinine Ratio 19.5 (6-22) Glucose 113 H (80-110) mg/dL Lactate 1.2 (0.7-2.1) mmol/L Calcium 9.4 (8.4-10.2) mg/dL Magnesium 2.2 (1.6-2.3) mg/dL Total Creatine Kinase 177 H (55-170) U/L CK-MB (CK-2) 1.58 (<2.37) ng/mL CK-MB (CK-2) Rel Index 0.9 L (1.5-5.0) % Troponin I < 0.012 (0.01-0.034) ng/mL NT-Pro-B Natriuret Pep (<125) pg/mL SARS-CoV-2 (PCR) (Negative) Imaging Data Chest x-ray: Radiologist's Impression: Launch?Image [address] [address] XRay Report Signed Patient: Guy Cox MR#: [id number] : 1960 Acct:[id number] Age/Sex: 60 / M Date of Service: 02/24/21 Loc: ED Accession Number: [id number] ?? Procedure: XR chest 1V Ordering Provider: Mile Donis D.O. PROCEDURE:? XR CHEST 1V ? INDICATIONS:? Short of breath, hx copd/asthma ? TECHNIQUE:? One view of the chest was acquired.? ? COMPARISON:? [facility], CT, CT CHEST W CON, 08/06/2020, 7:59.? Outside Film, CT, CT CHEST WITH CONTRAST, 08/06/2020, 7:59.? Outside Film, CR, XR CHEST 1 VIEW, 08/06/2020, 6:28.? [facility], CR, XR CHEST 1V, 08/06/2020, 6:28. ? FINDINGS:? ? Surgical changes and devices:? None.? ? Lungs and pleura:? Lungs are clear, yet hyperexpanded.? No pleural effusions or pneumothorax.? ? Mediastinum:? Mediastinal contours appear normal.? Heart size is normal.? ? Bones and chest wall:? No suspicious bony lesions.? Overlying soft tissues appear unremarkable.? ? IMPRESSION:? ? Hyperexpanded lungs, without an acute cardiopulmonary process identified. ? ? Dictated by: Manuel Herman M.D. on 02/24/2021 at 8:14 ? ? Approved by: Manuel Herman M.D. on 02/24/2021 at 8:16?? ECG Data Attestation: I personally reviewed and interpreted this ECG as follows: Interpretation: Sinus rhythm with sinus arrhythmia. Nonspecific ST and T-wave abnormality. Rate of 75 pr 152 QRS of 94 and QTC of 426. No acute changes. MDM Narrative Medical decision making narrative: Male with a history of asthma/COPD appears to be having an exacerbation today. His COVID swab is negative. He has some baseline anemia but no other major lab abnormalities including negative troponin and BNP. hyperexpanded lungs but no other acute pulmonary process. My suspicion for PE is low. Patient's wheezing is improving with DuoNeb and albuterol. He was also given Solu-Medrol IV. He has not been hypoxic but was quite wheezy and using his rescue inhaler and nebulized albuterol every 4 and sometimes 2 hours at home. His peak flow was in the 100 range initially. He is feeling much better at this time and feels safe to return. Discharge Plan Departure Patient Disposition: Home Clinical Impression: Acute exacerbation of chronic obstructive airways disease Instructions: DI for Chronic Obstructive Pulmonary Disease Activity Restrictions/Additional Instructions: Follow-up with your physician for recheck. You may continue to use albuterol every 4 hours needed. If you are needing this medication every 4 hours without fail or more frequently he should come in for evaluation. Continue to use your steroid inhaler daily. Take oral steroids until completely gone. Prescription sent to [facility] in [place]. Please return for fevers, new chest pain or shortness of breath, increasing work of breathing, lightheadedness or passing out, persistent vomiting, new swelling in her extremities or other new or concerning symptoms. Prescriptions: New albuterol sulfate 2.5 mg /3 mL (0.083 %) solution for nebulization 2.5 mg inhalation Q4H PRN (Reason: shortness of breath or wheezing) Qty: 90 0RF prednisone 10 mg tablet See Rx Instructions .ROUTE .COMPLEX Qty: 16 0RF Rx Instructions: Five tablets po x1 day, then 4 tablets x1 day, 3 tablets x1 day, 2 tablets x1 day, 1 tablet p.o. q.day x2 days albuterol sulfate 2.5 mg /3 mL (0.083 %) solution for nebulization 2.5 mg inhalation Q4H PRN (Reason: shortness of breath or wheezing) Qty: 90 0RF prednisone 10 mg tablet See Rx Instructions .ROUTE .COMPLEX Qty: 16 0RF Rx Instructions: Five tablets p.o. x1 day, then 4 tablets p.o. x1 day, then 3 tablets p.o. x1 day, then 2 tablets p.o. x1 day, then 1 tablet p.o. q.day x2 days. No Action Flovent HFA 110 mcg/actuation HFA aerosol inhaler 1 puff INHALATION DAILY 0RF omeprazole 20 mg capsule,delayed release(DR/EC) 20 mg PO DAILY 0RF albuterol sulfate 90 mcg/actuation HFA aerosol inhaler 1 puff Inhalation PRN PRN (Reason: Shortness Of Breath) 0RF fluticasone propionate 50 mcg/actuation spray,suspension 1 spray Intranasal DIRECTED 0RF loratadine 10 mg tablet 10 mg PO DAILY 0RF Referrals: Mj Jenkins MD [Primary Care Provider] -
[2021-02-24 08:43] LABS: COVID19 -Nasal RAPID Negative (Negative)
--- NOTE | 2021-02-24 08:46 | DI.RAD.S_ITS ---
PROCEDURE: XR CHEST 1V INDICATIONS: Short of breath, hx copd/asthma TECHNIQUE: One view of the chest was acquired. COMPARISON: [facility], CT, CT CHEST W CON, 08/06/2020, 7:59. Outside Film, CT, CT CHEST WITH CONTRAST, 08/06/2020, 7:59. Outside Film, CR, XR CHEST 1 VIEW, 08/06/2020, 6:28. [facility], CR, XR CHEST 1V, 08/06/2020, 6:28. FINDINGS: Surgical changes and devices: None. Lungs and pleura: Lungs are clear, yet hyperexpanded. No pleural effusions or pneumothorax. Mediastinum: Mediastinal contours appear normal. Heart size is normal. Bones and chest wall: No suspicious bony lesions. Overlying soft tissues appear unremarkable. IMPRESSION: Hyperexpanded lungs, without an acute cardiopulmonary process identified. Dictated by: Manuel Herman M.D. on 02/24/2021 at 8:14 Approved by: Manuel Herman M.D. on 02/24/2021 at 8:16
[2021-02-24] MEDS: methylPREDNISolone 125 MG/2 ML VIAL IV (09:17)
[2021-02-24] MEDS: ALBUTEROL/IPRATROPIUM 3 ML AMPUL INH (09:29)
[2021-02-24 09:35] LABS: BUN Creatinine Ratio 19.5 (6-22); Blood Urea Nitrogen 15 mg/dL (9-20); Calcium 9.4 mg/dL (8.4-10.2); Carbon Dioxide 27 mmol/L (22-32); Chloride 107 mmol/L (98-107); Creatine Kinase 177 U/L (55-170); Estimated Glomerular Filt Rate > 60.0 mL/min (>60); Glucose 113 mg/dL (80-110); Lactate (Lactic Acid) 1.2 mmol/L (0.7-2.1); Magnesium 2.2 mg/dL (1.6-2.3); Sodium 143 mmol/L (137-145)
[2021-02-24] MEDS: ALBUTEROL 2.5 MG/3 ML NEB (ADULT) 5 MG INH (09:36)
[2021-02-24 09:37] LABS: Add Manual Diff / Slide Review NO; Basophils Absolute Auto 200 /uL (0-100); Basophils Percent Auto 2.9 % (0-2); Eosinophils Absolute Auto 700 /uL (0-450); Eosinophils Percent Auto 12.4 % (2-4); Hematocrit 41.8 % (41-53); Hemoglobin 13.4 g/dL (13.5-17.5); Lymphocytes Absolute Auto 1500 /uL (1100-4500); Lymphocytes Percent Auto 24.6 % (25-40); Mean Corpuscular Hemoglobin 21.7 PG (26-34); Mean Corpuscular Volume 67.9 fL (80-100); Monocytes Absolute Auto 600 /uL (0-900); Monocytes Percent Auto 9.3 % (3-14); Neutrophils Absolute Auto 3000 /uL (1500-7000); Neutrophils Percent Auto 50.8 % (50-75); Platelet Count 305 X10^3/uL (150-400); Red Blood Cell Count 6.15 X10^6/uL (4.5-5.9); Red Cell Distribution Width 16.7 % (11.6-14.8)
[2021-02-24] MEDS: IPRATROPIUM 0.5 MG/2.5 ML NEB INH (09:37)
[2021-02-24 09:44] LABS: NT-proBNP (BNP-Adult 18+) 33 pg/mL (<125)
[2021-02-24 09:47] LABS: Troponin I < 0.012 ng/mL (0.01-0.034)
[2021-02-24 09:50] LABS: CKMB % Relative Index 0.9 % (1.5-5.0); Creatine Kinase MB 1.58 ng/mL (<2.37); HEMOLYSIS 21 (0-50)
[2021-02-24 10:21] LABS: Microcytosis 2+; Target Cells 1+
== END 2021-02-24 11:24 | disposition home or self-care (01) ==
PROVIDERS: Emergency Provider Emergency Medicine; PCP Family Medicine
DX: J44.1 Chronic obstructive pulmonary disease with (acute) exacerbation (principal); I49.9 Cardiac arrhythmia, unspecified; Z20.822 Contact with and (suspected) exposure to COVID-19; Z87.891 Personal history of nicotine dependence
CPT/HCPCS: 36415; 71045; 80048; 82550; 82553; 83605; 83735; 83880; 84484; 85025; 87635; 93005; 94150; 94640; 96374; 99284; C9803; J2930; J7613

== ENCOUNTER 2021-04-12 15:47 | Emergency (ER) | payer OTHER, SELFPAY ==
[2021-04-12 15:55] VITALS: BP 146/84; PULSE 85; RESP 19; TEMP 36.1; O2SAT 98; BMI 28.8
[2021-04-12 16:20] LABS: Add Manual Diff / Slide Review NO; Basophils Absolute Auto 100 /uL (0-100); Basophils Percent Auto 1.5 % (0-2); Eosinophils Absolute Auto 600 /uL (0-450); Eosinophils Percent Auto 7.1 % (2-4); Hematocrit 42.3 % (41-53); Hemoglobin 13.5 g/dL (13.5-17.5); Lymphocytes Absolute Auto 2000 /uL (1100-4500); Lymphocytes Percent Auto 22.3 % (25-40); Mean Corpuscular Hemoglobin 21.6 PG (26-34); Mean Corpuscular Volume 67.5 fL (80-100); Monocytes Absolute Auto 800 /uL (0-900); Monocytes Percent Auto 9.4 % (3-14); Neutrophils Absolute Auto 5300 /uL (1500-7000); Neutrophils Percent Auto 59.7 % (50-75); Platelet Count 350 X10^3/uL (150-400); Red Blood Cell Count 6.26 X10^6/uL (4.5-5.9); Red Cell Distribution Width 16.4 % (11.6-14.8); White Blood Cell Count 8.9 X10^3/uL (4.5-11.0)
--- NOTE | 2021-04-12 16:23 | ED.ABDPAIN ---
HPI - Abdominal Pain General Chief Complaint: Abdominal Pain Stated Complaint: pain left abdomin Time Seen by Provider: 04/12/21 16:22 Source: patient Mode of arrival: Family Vehicle Limitations: no limitations Related Data Home Medications Medication Instructions Recorded Confirmed albuterol sulfate 90 mcg/actuation 1 puff INHALATION PRN PRN 06/18/18 11/27/20 aerosol inhaler fluticasone propionate 50 1 spray INTRANASAL DIRECTED 06/18/18 11/27/20 mcg/actuation nasal spray,suspension loratadine 10 mg tablet 10 mg PO DAILY 06/18/18 11/27/20 omeprazole 20 mg capsule,delayed 20 mg PO DAILY 06/18/18 11/27/20 release fluticasone propionate 110 1 puff INHALATION DAILY 11/27/20 11/27/20 mcg/actuation HFA aerosol inhaler (Flovent HFA) Previous Rx's Medication Instructions Recorded albuterol sulfate 2.5 mg (3 mL) INHALATION Q4H PRN 02/24/21 #90 ml albuterol sulfate 2.5 mg (3 mL) INHALATION Q4H PRN 02/24/21 #90 ml prednisone 10 mg tablet See Rx Instructions .ROUTE 02/24/21 .COMPLEX #16 tab prednisone 10 mg tablet See Rx Instructions .ROUTE 02/24/21 .COMPLEX #16 tab Allergies Allergy/AdvReac Type Severity Reaction Status Date / Time No Known Drug Allergies Allergy Verified 06/18/18 11:47 Review of Systems Review of Systems ROS Unobtainable: All systems reviewed & are unremarkable except as noted in HPI and below Patient History Medical History (Updated 03/11/21 @ 00:00 by ) Asthma Social History household members: spouse Smoking Status: Former smoker Smoking Status: Former smoker tobacco type: cigarettes alcohol intake frequency: a few times a month Substance Use Type: does not use Exam Initial Vital Signs Initial Vital Signs: Vital Signs Temperature 96.9 F L 04/12/21 15:55 Pulse Rate 85 04/12/21 15:55 Respiratory Rate 19 04/12/21 15:55 Blood Pressure 146/84 H 04/12/21 15:55 Pulse Oximetry 98 04/12/21 15:55 Course Orders Ordered: ED Orders 04/12/21 16:01 EKG-12 Lead Stat 04/12/21 16:11 Complete Blood Count AUTO DIFF Stat Comprehensive Metabolic Panel Stat Lipase Stat Vital Signs Vital signs: Vital Signs - 8 hr 04/12/21 15:55 Temperature 96.9 F L Pulse Rate 85 Respiratory Rate 19 Blood Pressure 146/84 H Pulse Oximetry 98 MDM - Abdominal Pain Lab Data Result diagrams: 04/12/21 16:11 04/12/21 16:11 Labs: Lab Results 04/12/21 Range/Units 16:11 WBC 8.9 (4.5-11.0) X10^3/uL RBC 6.26 H (4.5-5.9) X10^6/uL Hgb 13.5 (13.5-17.5) g/dL Hct 42.3 (41-53) % MCV 67.5 L (80-100) fL MCH 21.6 L (26-34) PG MCHC 32.0 (30-36) % RDW 16.4 H (11.6-14.8) % Plt Count 350 (150-400) X10^3/uL Neut % (Auto) 59.7 (50-75) % Lymph % (Auto) 22.3 L (25-40) % [place] % (Auto) 9.4 (3-14) % Eos % (Auto) 7.1 H (2-4) % Baso % (Auto) 1.5 (0-2) % Neut # (Auto) 5300 (9303-5292) /uL Lymph # (Auto) 2000 (4918-9014) /uL [place] # (Auto) 800 (0-900) /uL Eos # (Auto) 600 H (0-450) /uL Baso # (Auto) 100 (0-100) /uL Point of care testing: Urine Dip Bedside Urine Glucose Negative Bedside Urine Bilirubin - Negative Bedside Urine Ketone - Negative Urine Specific [place] 1.015 Bedside Urine Occult Blood - Negative Bedside Urine pH 6.0 Bedside Urine Protein - Negative Bedside Urine Urobilinogen - Negative Bedside Urine Nitrite - Negative Bedside Urine Leukocytes - Negative Esterase Discharge Plan Departure Prescriptions: No Action Flovent HFA 110 mcg/actuation HFA aerosol inhaler 1 puff INHALATION DAILY 0RF albuterol sulfate 2.5 mg /3 mL (0.083 %) solution for nebulization 2.5 mg inhalation Q4H PRN (Reason: shortness of breath or wheezing) Qty: 90 0RF prednisone 10 mg tablet See Rx Instructions .ROUTE .COMPLEX Qty: 16 0RF Rx Instructions: Five tablets po x1 day, then 4 tablets x1 day, 3 tablets x1 day, 2 tablets x1 day, 1 tablet p.o. q.day x2 days albuterol sulfate 2.5 mg /3 mL (0.083 %) solution for nebulization 2.5 mg inhalation Q4H PRN (Reason: shortness of breath or wheezing) Qty: 90 0RF prednisone 10 mg tablet See Rx Instructions .ROUTE .COMPLEX Qty: 16 0RF Rx Instructions: Five tablets p.o. x1 day, then 4 tablets p.o. x1 day, then 3 tablets p.o. x1 day, then 2 tablets p.o. x1 day, then 1 tablet p.o. q.day x2 days. omeprazole 20 mg capsule,delayed release(DR/EC) 20 mg PO DAILY 0RF albuterol sulfate 90 mcg/actuation HFA aerosol inhaler 1 puff Inhalation PRN PRN (Reason: Shortness Of Breath) 0RF fluticasone propionate 50 mcg/actuation spray,suspension 1 spray Intranasal DIRECTED 0RF loratadine 10 mg tablet 10 mg PO DAILY 0RF Referrals: Mj Jenkins MD [Primary Care Provider] -
[2021-04-12 16:32] LABS: Alanine Aminotransferase 46 IU/L (<50); Albumin 4.5 g/dL (3.5-5.0); Albumin Globulin Ratio 1.5 (1.0-2.8); Alkaline Phosphatase 48 U/L (38-126); Aspartate Aminotransferase 36 IU/L (17-59); BUN Creatinine Ratio 15.2 (6-22); Bilirubin Total 0.5 mg/dL (0.2-1.3); Blood Urea Nitrogen 15 mg/dL (9-20); Calcium 9.5 mg/dL (8.4-10.2); Carbon Dioxide 25 mmol/L (22-32); Chloride 108 mmol/L (98-107); Estimated Glomerular Filt Rate > 60.0 mL/min (>60); Glucose 122 mg/dL (80-110); HEMOLYSIS < 15 (0-50); Lipase 130 U/L (23-300); Potassium 3.8 mmol/L (3.4-5.1); Sodium 138 mmol/L (137-145); Total Protein 7.5 g/dL (6.3-8.2)
[2021-04-12 16:47] LABS: Microcytosis 2+
--- NOTE | 2021-04-12 18:03 | DI.CT.S_ITS ---
PROCEDURE: CT ABDOMEN PELVIS W CON INDICATIONS: LLQ pain, diverticulitis? TECHNIQUE: After the administration of intravenous contrast, axial sections acquired from the lung bases to the pubic symphysis. Coronal and sagittal reformats were performed. For radiation dose reduction, the following was used: automated exposure control, adjustment of mA and/or kV according to patient size. COMPARISON: [facility], CT, CT ABDOMEN PELVIS WITHOUT CONTRAST, 10/14/2019, 16:29. FINDINGS: Image quality: Excellent. Lung bases: Unremarkable. Heart: No significant findings. ABDOMEN: Liver: Small hemangioma, right lobe of liver. No suspicious liver lesion. Mild diffuse hepatic steatosis.. Gallbladder: A to a Unremarkable. Biliary ducts: Unremarkable. Pancreas: Unremarkable. Spleen: Unremarkable. Adrenal Glands: Unremarkable. Kidneys and Ureters: Unremarkable. Stomach and Bowel: the mild diverticulosis without evidence of diverticulitis. Peritoneum: No abnormal intraperitoneal fluid. No free air. Ventral Wall: No hernias. Abdominal Nodes: No retroperitoneal or mesenteric adenopathy by size criteria. Vessels: Aorta and inferior vena cava are normal in size. The atherosclerotic calcifications involving the aorta and bilateral iliac arteries. PELVIS: Pelvic Organs: Unremarkable. Bladder: Unremarkable. Pelvic Nodes: No enlarged lymph nodes. Miscellaneous: Small bilateral fat containing inguinal hernias. Bones: Lumbar degenerative change. Canal stenosis at L4-L5. No lytic or blastic bony lesions. No compression fractures. IMPRESSION: 1. No evidence of acute abdominal process. 2. Mild sigmoid diverticulosis without evidence of diverticulitis. 3. Mild hepatic steatosis. 4. Small hepatic hemangioma. 5. Lumbar degenerative change with canal stenosis. 6. Small bilateral fat containing inguinal hernias. 7. Aortic and bilateral iliac calcifications. Dictated by: Tru Jenkins M.D. on 04/12/2021 at 18:25 Approved by: Tru Jenkins M.D. on 04/12/2021 at 18:29
--- NOTE | 2021-04-12 18:06 | ED_ITS ---
HPI - Abdominal Pain <MASHA YusufP - Last Filed: 04/12/21 21:38> General Chief Complaint: Abdominal Pain Stated Complaint: pain left abdomin Time Seen by Provider: 04/12/21 16:22 Source: patient Mode of arrival: Family Vehicle History of Present Illness HPI narrative: 60-year-old male presents to the emergency department for lower left quadrant pain which started yesterday. Patient went to the [place] for this today, complaining of lower left quadrant pain and had an abdomen x-ray which was negative for any obvious abnormality and he was sent here to the emergency department for further evaluation. Patient denies any nausea vomiting, he endorses that he has had 2 bowel movements today which were firm and he describes them as malodorous. He also endorses that any stool or gas that he has had over the last month has been malodorous more so than usual. Patient reports that any time he sneezes or coughs or laughs, he has sharp pain in his lower left quadrant up to a 8/10 otherwise at rest he is at a 3 to 4/10 for pain. Patient denies any abdominal history or surgery in the past, his last colonoscopy was last year and he reports there was something wrong with it but him and his physician decided that they did not need any intervention and he was okay to extend his next colonoscopy to another 3 or 5 years. Related Data Home Medications Medication Instructions Recorded Confirmed albuterol sulfate 90 mcg/actuation 1 puff INHALATION PRN PRN 06/18/18 11/27/20 aerosol inhaler fluticasone propionate 50 1 spray INTRANASAL DIRECTED 06/18/18 11/27/20 mcg/actuation nasal spray,suspension loratadine 10 mg tablet 10 mg PO DAILY 06/18/18 11/27/20 omeprazole 20 mg capsule,delayed 20 mg PO DAILY 06/18/18 11/27/20 release fluticasone propionate 110 1 puff INHALATION DAILY 11/27/20 11/27/20 mcg/actuation HFA aerosol inhaler (Flovent HFA) Previous Rx's Medication Instructions Recorded albuterol sulfate 2.5 mg (3 mL) INHALATION Q4H PRN 02/24/21 #90 ml albuterol sulfate 2.5 mg (3 mL) INHALATION Q4H PRN 02/24/21 #90 ml prednisone 10 mg tablet See Rx Instructions .ROUTE 11/28/21 .COMPLEX #16 tab prednisone 10 mg tablet See Rx Instructions .ROUTE 02/24/21 .COMPLEX #16 tab Allergies Allergy/AdvReac Type Severity Reaction Status Date / Time No Known Drug Allergies Allergy Verified 06/18/18 11:47 Review of Systems <RICK Yusuf - Last Filed: 04/12/21 21:38> Review of Systems Narrative: General: denies fever, chills, malaise, sweats, fatigue Head/Neck: denies headache, neck pain, dizziness Eyes: denies visual changes, eye pain Cardio: denies chest pain, palpitations, edema Respiratory: denies dyspnea, cough, orthopnea GI: Endorses left lower quadrant abdominal pain, denies nausea, vomiting, or diarrhea, endorses some bloating : denies dysuria, hematuria, urinary retention, frequency or incontinence MSK: denies joint pain, muscle weakness Skin: denies rash, itching, skin lesions or other Neuro: denies numbness, tingling Patient History <RICK Yusuf - Last Filed: 04/12/21 21:38> Medical History Asthma Social History household members: spouse Smoking Status: Former smoker Smoking Status: Former smoker tobacco type: cigarettes alcohol intake frequency: a few times a month Substance Use Type: does not use Exam <RICK Yusuf - Last Filed: 04/12/21 21:38> Narrative Exam Narrative: Independently reviewed vitals signs and nursing notes. General: Awake, alert, well-nourished and developed, nontoxic, no cardior espiratory distress Head/Neck: Atraumatic, neck full range of motion, trachea midline, no JVD or ly mphadenopathy. Supple, nontender, no meningeal signs. Eyes: Pupils equal round and reactive, EOMI, conjunctiva normal, no scleral icterus or injections Nose: nares patent, no rhinorrhea, without purulent drainage or septal hematoma. Mouth/Throat: uvula midline, moist mucus membranes, posterior pharynx normal, no oral lesions, airway patent Cardio: Regular rate and rhythm, no peripheral edema Respiratory: respirations unlabored without wheezing, stridor, or rales. No retractions. GI: Abdomen soft, mildly tender over left lower quadrant, no tenderness to abdomen with palpation in other quadrants, mildly distended, without hepatosplenomegaly MSK: Moves all extremities, neurovascularly intact, no flank tenderness bilaterally Skin: Normal capillary refill, no rash Neuro: Normal speech and cognition, normal gait, A&O x3 Initial Vital Signs Initial Vital Signs: Vital Signs Temperature 96.9 F L 04/12/21 15:55 Pulse Rate 85 04/12/21 15:55 Respiratory Rate 19 04/12/21 15:55 Blood Pressure 146/84 H 04/12/21 15:55 Pulse Oximetry 98 04/12/21 15:55 <Mile Donis DO - Last Filed: 04/14/21 08:01> Initial Vital Signs Initial Vital Signs: Vital Signs Temperature 96.9 F L 04/12/21 15:55 Pulse Rate 85 04/12/21 15:55 Respiratory Rate 04/12/21 15:55 Blood Pressure 146/84 H 04/12/21 15:55 Pulse Oximetry 98 04/12/21 15:55 Course <RICK Yusfu - Last Filed: 04/12/21 21:38> Orders Ordered: Discontinued Medications Acetaminophen (Acetaminophen 325 Mg Tablet) 975 mg PO NOW ONE Stop: 04/12/21 19:09 Last Admin: 04/12/21 19:18 Dose: 975 mg Documented by: MARIO ALBERTO Ketorolac Tromethamine (Ketorolac 30 Mg/Ml Vial) 15 mg IV NOW ONE Stop: 04/12/21 19:09 Last Admin: 04/12/21 19:18 Dose: 15 mg Documented by: MARIO ALBERTO Vital Signs Vital signs: Vital Signs - 8 hr 04/12/21 15:55 04/12/21 19:28 Temperature 96.9 F L Pulse Rate 85 64 Respiratory Rate 19 16 Blood Pressure 146/84 H 136/85 Pulse Oximetry 98 97 <Mile Donis DO - Last Filed: 04/14/21 08:01> Orders Ordered: Discontinued Medications Acetaminophen (Acetaminophen 325 Mg Tablet) 975 mg PO NOW ONE Stop: 04/12/21 19:09 Last Admin: 04/12/21 19:18 Dose: 975 mg Documented by: MARIO ALBERTO Ketorolac Tromethamine (Ketorolac 30 Mg/Ml Vial) 15 mg IV NOW ONE Stop: 04/12/21 19:09 Last Admin: 04/12/21 19:18 Dose: 15 mg Documented by: MARIO ALBERTO Vital Signs Vital signs: Vital Signs - 8 hr 04/12/21 15:55 04/12/21 19:28 Temperature 96.9 F L Pulse Rate 85 64 Respiratory Rate 19 16 Blood Pressure 146/84 H 136/85 Pulse Oximetry 98 97 MDM - Abdominal Pain <RICK Yusuf - Last Filed: 04/12/21 21:38> Lab Data Result diagrams: 04/12/21 16:11 04/12/21 16:11 Labs: Lab Results 04/12/21 04/12/21 Range/Units 16:11 16:11 WBC 8.9 (4.5-11.0) X10^3/uL RBC 6.26 H (4.5-5.9) X10^6/uL Hgb 13.5 (13.5-17.5) g/dL Hct 42.3 (41-53) % MCV 67.5 L (80-100) fL MCH 21.6 L (26-34) PG MCHC 32.0 (30-36) % RDW 16.4 H (11.6-14.8) % Plt Count 350 (150-400) X10^3/uL Neut % (Auto) 59.7 (50-75) % Lymph % (Auto) 22.3 L (25-40) % [place] % (Auto) 9.4 (3-14) % Eos % (Auto) 7.1 H (2-4) % Baso % (Auto) 1.5 (0-2) % Neut # (Auto) 5300 (7463-2564) /uL Lymph # (Auto) 2000 (9169-3568) /uL [place] # (Auto) 800 (0-900) /uL Eos # (Auto) 600 H (0-450) /uL Baso # (Auto) 100 (0-100) /uL RBC Morphology See below Microcytosis 2+ H Sodium 138 (137-145) mmol/L Potassium 3.8 (3.4-5.1) mmol/L Chloride 108 H (98-107) mmol/L Carbon Dioxide 25 (22-32) mmol/L BUN 15 (9-20) mg/dL Creatinine 0.99 (0.66-1.25) mg/dL Estimated GFR > 60.0 (>60) mL/min BUN/Creatinine Ratio 15.2 (6-22) Glucose 122 H (80-110) mg/dL Calcium 9.5 (8.4-10.2) mg/dL Total Bilirubin 0.5 (0.2-1.3) mg/dL AST 36 (17-59) IU/L ALT 46 (<50) IU/L Alkaline Phosphatase 48 (38-126) U/L Total Protein 7.5 (6.3-8.2) g/dL Albumin 4.5 (3.5-5.0) g/dL Globulin 3.0 (1.7-4.1) g/dL Albumin/Globulin Ratio 1.5 (1.0-2.8) Lipase 130 (23-300) U/L Point of care testing: Urine Dip Bedside Urine Glucose Negative Bedside Urine Bilirubin - Negative Bedside Urine Ketone - Negative Urine Specific B[place] 1.015 Bedside Urine Occult Blood - Negative Bedside Urine pH 6.0 Bedside Urine Protein - Negative Bedside Urine Urobilinogen - Negative Bedside Urine Nitrite - Negative Bedside Urine Leukocytes - Negative Esterase Imaging Data CT scan - abdomen/pelvis: Radiologist's Impression: PROCEDURE:? CT ABDOMEN PELVIS W CON ? INDICATIONS:? LLQ pain, diverticulitis? ? TECHNIQUE:? After the administration of intravenous contrast, axial sections acquired from the lung bases to the pubic symphysis.? Coronal and sagittal reformats were performed.? For radiation dose reduction, the following was used:? automated exposure control, adjustment of mA and/or kV according to patient size.? ? COMPARISON:? [facility], CT, CT ABDOMEN PELVIS WITHOUT CONTRAST, 10/14/2019, 16:29. ? FINDINGS:? Image quality:? Excellent.? ? Lung bases:? Unremarkable. Heart:? No significant findings. ? ABDOMEN: Liver:? Small hemangioma, right lobe of liver.? No suspicious liver lesion.? Mild diffuse hepatic steatosis..? ? Gallbladder:? A to a Unremarkable.? ? Biliary ducts:? Unremarkable.? ? Pancreas:? Unremarkable.? ? Spleen:? Unremarkable.? ? Adrenal Glands:? Unremarkable.? ? Kidneys and Ureters:? Unremarkable.? ? ? Stomach and Bowel:? the mild diverticulosis without evidence of diverticulitis. Peritoneum:? No abnormal intraperitoneal fluid.? No free air.? ? Ventral Wall: ? No hernias.? Abdominal Nodes:? No retroperitoneal or mesenteric adenopathy by size criteria.? Vessels:? Aorta and inferior vena cava are normal in size.? The atherosclerotic calcifications involving the aorta and bilateral iliac arteries. ? PELVIS: Pelvic Organs:? Unremarkable.? ? Bladder:? Unremarkable.? ? Pelvic Nodes: No enlarged lymph nodes.? Miscellaneous:? Small bilateral fat containing inguinal hernias. ? Bones:? Lumbar degenerative change.? Canal stenosis at L4-L5.? No lytic or blastic bony lesions.? No compression fractures. ? ? ? IMPRESSION: ? 1. No evidence of acute abdominal process. ? 2. Mild sigmoid diverticulosis without evidence of diverticulitis. ? 3. Mild hepatic steatosis. ? 4. Small hepatic hemangioma. ? 5. Lumbar degenerative change with canal stenosis. ? 6. Small bilateral fat containing inguinal hernias.? ? 7. Aortic and bilateral iliac calcifications.? ? ? Dictated by: Tru Jenkins M.D. on 04/12/2021 at 18:25 ? ? Approved by: Tru Jenkins M.D. on 04/12/2021 at 18:29 ? MDM Narrative Medical decision making narrative: 60-year-old male presents to the emergency department for lower left quadrant pain which started this morning, it is sharp in nature, at rest it is only a 2/10 but but if he is bearing down, coughing, or sneezing it is an 8/10. Patient is atraumatic, it is constant pain, sharp, it does not radiate, he has never had this pain before. Last colonoscopy was last year, he reports that there was nothing that needed intervention at the time. Pain is not associated with food, he has had 2 bowel movements today which he describes as firm and he also denies any prior abdominal surgeries. He is having gas, he denies any nausea vomiting, he is tolerating p.o. without any difficulty. He denies diarrhea, bright red blood per rectum, he denies dysuria or hematuria, denies any flank pain, denies any recent antibiotics or hospitalizations. Noncontrast abdominal pelvis CT shows mild diverticulosis without signs of diverticulitis. Patient was given information on diet recommendations and high-fiber foods. Ins tructed to follow-up with his PCP and encouraged of colonoscopy this year. Also recommend a low-sodium diet for patient's abdominal distention. Patient's symptoms are not typical for emergent causes of abdominal pain but not limited to appendicitis, abdominal aortic aneurysm, surgical biliary disease, pancreatitis, small-bowel obstruction, mesenteric ischemia serous bacterial illness. Doubt ACS, patient is tolerating p.o., he will be discharged with strict return precautions and will follow up with his primary care provider in the next 24-48 hours. Patient is appropriate and amenable to discharge home. Vital signs are stable on repeat examination is unremarkable. Patient has been informed of results. Patient has been given strict return to ER precautions for any new or worsening symptoms. Patient understands to follow up closely with outpatient providers as instructed. Patient understands plan and agrees to discharge home. All questions and concerns answered at this time. <Mile Donis, DO - Last Filed: 04/14/21 08:01> Lab Data Labs: Lab Results 04/12/21 04/12/21 Range/Units 16:11 16:11 WBC 8.9 (4.5-11.0) X10^3/uL RBC 6.26 H (4.5-5.9) X10^6/uL Hgb 13.5 (13.5-17.5) g/dL Hct 42.3 (41-53) % MCV 67.5 L (80-100) fL MCH 21.6 L (26-34) PG MCHC 32.0 (30-36) % RDW 16.4 H (11.6-14.8) % Plt Count 350 (150-400) X10^3/uL Neut % (Auto) 59.7 (50-75) % Lymph % (Auto) 22.3 L (25-40) % [place] % (Auto) 9.4 (3-14) % Eos % (Auto) 7.1 H (2-4) % Baso % (Auto) 1.5 (0-2) % Neut # (Auto) 5300 (1815-2178) /uL Lymph # (Auto) 2000 (5590-5252) /uL [place] # (Auto) 800 (0-900) /uL Eos # (Auto) 600 H (0-450) /uL Baso # (Auto) 100 (0-100) /uL RBC Morphology See below Microcytosis 2+ H Sodium 138 (137-145) mmol/L Potassium 3.8 (3.4-5.1) mmol/L Chloride 108 H (98-107) mmol/L Carbon Dioxide 25 (22-32) mmol/L BUN 15 (9-20) mg/dL Creatinine 0.99 (0.66-1.25) mg/dL Estimated GFR > 60.0 (>60) mL/min BUN/Creatinine Ratio 15.2 (6-22) Glucose 122 H (80-110) mg/dL Calcium 9.5 (8.4-10.2) mg/dL Total Bilirubin 0.5 (0.2-1.3) mg/dL AST 36 (17-59) IU/L ALT 46 (<50) IU/L Alkaline Phosphatase 48 (38-126) U/L Total Protein 7.5 (6.3-8.2) g/dL Albumin 4.5 (3.5-5.0) g/dL Globulin 3.0 (1.7-4.1) g/dL Albumin/Globulin Ratio 1.5 (1.0-2.8) Lipase 130 (23-300) U/L Point of care testing: Urine Dip Bedside Urine Glucose Negative Bedside Urine Bilirubin - Negative Bedside Urine Ketone - Negative Urine Specific [place] 1.015 Bedside Urine Occult Blood - Negative Bedside Urine pH 6.0 Bedside Urine Protein - Negative Bedside Urine Urobilinogen - Negative Bedside Urine Nitrite - Negative Bedside Urine Leukocytes - Negative Esterase Discharge Plan Departure Patient Disposition: Home Clinical Impression: Diverticulosis Instructions: DI for Diverticulitis Activity Restrictions/Additional Instructions: *You have been diagnosed with diverticulosis of your sigmoid colon without diverticulitis, which is in the lower left part of your abdomen. Because this is not infected, the best way to prevent this from getting worse is to eat a lot natural fiber like fruits, Tor[place], being, peas, green leafy vegetables. I recommend following up with your primary doctor and discussing having a colonoscopy within the next year, they can check for any signs of cancer although we did not see any masses or enlarged lymph nodes on your CT scan. Avoid anything straining or bearing down which can worsen your pain and increase the pressure into those little pouch is in her colon. Try to keep your stools soft to decrease her pain, keep your sodium intake down to help reduce your sw elling in your abdomen. It does not appear that anything is dangerous in your abdomen to be causing your complaint so rest for the next couple of days, stay hydrated, there is no indication to rest her bowel at this point. I hope you feel better soon, thank you for trusting us with your care. *What to do: *Please continue to take your regular medications as directed. [ ] New medication prescriptions sent to your pharmacy: [ ] [ ] New medication written as a paper prescription [ x] No new medications given *Please follow up with your primary care provider in 2-3 days, call for an appointment. Let them know you were seen in the Emergency Department and that we ask that you be seen in follow up. We will electronically transmit a record of today's note if your PCP is in our system *If you do not have a primary care provider please contact the [facility] Resource line at [phone]. They will ask some questions about your medical history and help get you set up with a doctor in the community. *Return to Emergency Department if you should have any new, worsening or concerning symptoms, such as [fever greater than 101F, chills, worsening pain, persistent vomiting or other bothersome symptoms] Prescriptions: No Action Flovent HFA 110 mcg/actuation HFA aerosol inhaler 1 puff INHALATION DAILY 0RF albuterol sulfate 2.5 mg /3 mL (0.083 %) solution for nebulization 2.5 mg inhalation Q4H PRN (Reason: shortness of breath or wheezing) Qty: 90 0 RF prednisone 10 mg tablet See Rx Instructions .ROUTE .COMPLEX Qty: 16 0RF Rx Instructions: Five tablets po x1 day, then 4 tablets x1 day, 3 tablets x1 day, 2 tablets x1 day, 1 tablet p.o. q.day x2 days albuterol sulfate 2.5 mg /3 mL (0.083 %) solution for nebulization 2.5 mg inhalation Q4H PRN (Reason: shortness of breath or wheezing) Qty: 90 0RF prednisone 10 mg tablet See Rx Instructions .ROUTE .COMPLEX Qty: 16 0RF Rx Instructions: Five tablets p.o. x1 day, then 4 tablets p.o. x1 day, then 3 tablets p.o. x1 day, then 2 tablets p.o. x1 day, then 1 tablet p.o. q.day x2 days. omeprazole 20 mg capsule,delayed release(DR/EC) 20 mg PO DAILY 0RF albuterol sulfate 90 mcg/actuation HFA aerosol inhaler 1 puff Inhalation PRN PRN (Reason: Shortness Of Breath) 0RF fluticasone propionate 50 mcg/actuation spray,suspension 1 spray Intranasal DIRECTED 0RF loratadine 10 mg tablet 10 mg PO DAILY 0RF Referrals: Mj Jenkins MD [Primary Care Provider] - <Mile Donis DO - Last Filed: 04/14/21 08:01> Cosign ED Attending Cosignature Attestation: I was immediately available in the department for consultation. Documentation has been reviewed.
[2021-04-12] MEDS: ACETAMINOPHEN 325 MG TABLET 975 MG PO (19:18)
[2021-04-12] MEDS: KETOROLAC 30 MG/ML VIAL 15 MG IV (19:18)
[2021-04-12 19:28] VITALS: BP 136/85; PULSE 64; RESP 16; O2SAT 97
== END 2021-04-12 19:29 | disposition home or self-care (01) ==
PROVIDERS: Emergency Medicine; Emergency Provider Nurse Practitioner Critical Care Medicine; PCP Family Medicine
DX: K57.30 Diverticulosis of large intestine without perforation or abscess without bleeding (principal); Z87.891 Personal history of nicotine dependence
CPT/HCPCS: 36415; 74177; 80053; 81003; 83690; 85025; 96374; 99284; J1885

== ENCOUNTER 2021-09-28 12:32 | Emergency (ER) | payer OTHER, SELFPAY ==
[2021-09-28 12:41] VITALS: BP 175/92; PULSE 64; RESP 16; TEMP 36.6; O2SAT 99; BMI 28.8
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
--- NOTE | 2021-09-28 15:30 | ED.HA ---
HPI - Headache <RICK Arteaga - Last Filed: 09/28/21 15:41> General Chief Complaint: Headache Stated Complaint: heavy object hit his head Time Seen by Provider: 09/28/21 15:17 Mode of arrival: Family Vehicle History of Present Illness HPI Narrative: 61-year-old male that presents to the emergency department with complaints of posterior cranial pain secondary to a heavy object falling onto him while working in his garage around noon today. Patient denies any loss of consciousness, immediate vomiting or nausea or body weakness. No break in skin or active bleeding. Related Data Home Medications Medication Instructions Recorded Confirmed albuterol sulfate 90 mcg/actuation 1 puff inhalation PRN PRN 06/18/18 11/27/20 aerosol inhaler Shortness Of Breath fluticasone propionate 50 1 spray intranasal DIRECTED 06/18/18 11/27/20 mcg/actuation nasal spray,suspension loratadine 10 mg tablet 10 mg PO DAILY 06/18/18 11/27/20 omeprazole 20 mg capsule,delayed 20 mg PO DAILY 06/18/18 11/27/20 release fluticasone propionate 110 1 puff inhalation DAILY 11/27/20 11/27/20 mcg/actuation HFA aerosol inhaler (Flovent HFA) Previous Rx's Medication Instructions Recorded albuterol sulfate 2.5 mg/3 mL 2.5 mg (3 mL) inhalation Q4H PRN 02/24/21 (0.083 %) solution for nebulization shortness of breath or wheezing #90 mL albuterol sulfate 2.5 mg/3 mL 2.5 mg (3 mL) inhalation Q4H PRN 02/24/21 (0.083 %) solution for nebulization shortness of breath or wheezing #90 mL prednisone 10 mg tablet See Rx Instructions .Route 02/24/21 .COMPLEX #16 tabs prednisone 10 mg tablet See Rx Instructions .Route 02/24/21 .COMPLEX #16 tabs Allergies Allergy/AdvReac Type Severity Reaction Status Date / Time No Known Drug Allergies Allergy Verified 09/28/21 12:45 Review of Systems <RICK Arteaga - Last Filed: 09/28/21 15:41> Review of Systems Narrative: Patient denies current fever, chills, blurry or double vision, earache, nasal congestion, sore throat, new loss of smell or taste, chest discomfort, SOB, N&V, diarrhea, constipation, abdominal pain, dysuria, frequency, urgency, muscle or body aches, skin changes, numbness & tingling or limb weakness. Patient History <RICK Arteaga - Last Filed: 09/28/21 15:41> Medical History (Updated 09/28/21 @ 15:32 by RICK Arteaga) Asthma Social History household members: spouse Smoking Status: Former smoker Smoking Status: Former smoker tobacco type: cigarettes alcohol intake frequency: a few times a week Substance Use Type: does not use Exam <RICK Arteaga - Last Filed: 09/28/21 15:41> Narrative Exam Narrative: Physical examination this 61-year-old male was unremarkable. Mild swelling to the posterior cranium with no break in skin or active bleeding. Initial Vital Signs Initial Vital Signs: Vital Signs Temperature 97.8 F 09/28/21 12:41 Pulse Rate 64 09/28/21 12:41 Respiratory Rate 16 09/28/21 12:41 Blood Pressure 175/92 H 09/28/21 12:41 Pulse Oximetry 99 09/28/21 12:41 Oxygen Delivery Method 09/28/21 12:41 Verified Const General: cooperative and healthy appearing [facility] Head: normocephalic, No Ibarra's sign, No raccoon eyes and No scalp lesion Face and sinus: normal facial exam Eyes General: Yes appearance normal, both eyes and all related structures Pupils: PERRL Neck Neck: full ROM Resp Effort & Inspection: normal respiratory effort Auscultation: clear to auscultation bilaterally Cardio Heart Sounds: S1 normal and S2 normal Neuro General: patient alert, patient oriented x3 and CN's II-XI intact bilaterally Psych Appearance: well kempt <Neva Sanches DO - Last Filed: 09/30/21 08:42> Initial Vital Signs Initial Vital Signs: Vital Signs Temperature 97.8 F 09/28/21 12:41 Pulse Rate 64 09/28/21 12:41 Respiratory Rate 16 09/28/21 12:41 Blood Pressure 175/92 H 09/28/21 12:41 Pulse Oximetry 99 09/28/21 12:41 Oxygen Delivery Method 09/28/21 12:41 Course <RICK Arteaga - Last Filed: 09/28/21 15:41> Orders Ordered: ED Orders 09/28/21 12:53 CT head/brain wo con Stat Vital Signs Vital signs: Vital Signs - 8 hr 09/28/21 12:41 Temperature 97.8 F Pulse Rate 64 Respiratory Rate 16 Blood Pressure 175/92 H Pulse Oximetry 99 Oxygen Delivery Method Room Air <Neva Sanches DO - Last Filed: 09/30/21 08:42> Orders Ordered: ED Orders 09/28/21 12:53 CT head/brain wo con Stat Vital Signs Vital signs: Vital Signs - 8 hr 09/28/21 12:41 Temperature 97.8 F Pulse Rate 64 Respiratory Rate 16 Blood Pressure 175/92 H Pulse Oximetry 99 Oxygen Delivery Method Room Air MDM - Headache <RICK Arteaga - Last Filed: 09/28/21 15:41> Differential Diagnosis Differential diagnosis: Likely headache Imaging Data CT scan - head: Radiologist's Impression: [facility] [id number] CT Scan Report Signed Patient: Guy Cox MR#: [id number] : 1960 Acct:[id number] Age/Sex: 61 / M Date of Service: 09/28/21 Loc: ED Accession Number: [id number] ?? Procedure: CT head/brain wo con Ordering Provider: Neva Sanches D.O. PROCEDURE:? CT HEAD/BRAIN WO CON ? INDICATIONS:? Hit in back of head with metal, brief LOC. Headache ? TECHNIQUE:? Noncontrast 4.5 mm thick angled axial sections acquired from the foramen magnum to the vertex, with coronal and sagittal reformats.? For radiation dose reduction, the following was used:? automated exposure control, adjustment of mA and/or kV according to patient size.? ? COMPARISON:? None. ? FINDINGS:? Image quality:? Excellent.? ? CSF spaces:? Basal cisterns are patent.? No extra-axial fluid collections.? Ventricles are normal in size and shape.? ? Brain:? No midline shift.? No intracranial masses or hemorrhage.? Duran-white matter interface is normal.? ? Skull and face:? Calvarium and visualized facial bones are intact, without suspicious lesions.? ? Sinuses:? Visualized sinuses and mastoids are clear.? ? IMPRESSION:? No acute intracranial abnormality. ? ? Dictated by: Elias Vizcaino M.D. on 09/28/2021 at 12:08 ? ? Approved by: Elias Vizcaino M.D. on 09/28/2021 at 12:11 ? MDM Narrative Medical decision making narrative: 61-year-old male presenting to emergency department posterior cranial pain secondary to a heavy object falling on head approximately 3 and hours ago. Patient is neurologically intact and physical exam is unremarkable. Brain CT scan is normal. Recommended rest, hot or cold compresses to his neck and ibuprofen as needed for neck stiffness. Return precautions given. Discussed case with patient , who were agreeable with course of action. Discharge Plan Departure Patient Disposition: Home Clinical Impression: Headache Instructions: DI for Headache Activity Restrictions/Additional Instructions: *You have been diagnosed with a headache secondary to a foreign body hitting you on the head. Your CAT scan of your brain is completely normal and my physical exam is unremarkable. I recommend your hydrate well, use ibuprofen as needed for neck stiffness and discomfort and gave herself some time to rest from this ordeal. If at anytime you develop debilitating pain, chest pain, shortness of breath, blurry vision, etc. please return to the emergency department immediately. *What to do: *Please continue to take your regular medications as directed. [ ] New medication prescriptions sent to your pharmacy: [ ] [ ] New medication written as a paper prescription [x ] No new medications given *Please follow up with your primary care provider in 2-3 days, call for an appointment. Let them know you were seen in the Emergency Department and that we ask that you be seen in follow up. We will electronically transmit a record of today's note if your PCP is in our system *If you do not have a primary care provider please contact the [facility] Resource line at [phone]. They will ask some questions about your medical history and help get you set up with a doctor in the community. *Return to Emergency Department if you should have any new, worsening or concerning symptoms, such as [fever greater than 101 F, shaking chills, worsening pain, persistent vomiting or other bothersome symptoms] Prescriptions: No Action Flovent HFA 110 mcg/actuation HFA aerosol inhaler 1 puff INHALATION DAILY albuterol sulfate 2.5 mg /3 mL (0.083 %) solution for nebulization 2.5 mg inhalation Q4H PRN (Reason: shortness of breath or wheezing) Qty: 90 0RF prednisone 10 mg tablet See Rx Instructions .ROUTE .COMPLEX Qty: 16 0RF Rx Instructions: Five tablets po x1 day, then 4 tablets x1 day, 3 tablets x1 day, 2 tablets x1 day, 1 tablet p.o. q.day x2 days albuterol sulfate 2.5 mg /3 mL (0.083 %) solution for nebulization 2.5 mg inhalation Q4H PRN (Reason: shortness of breath or wheezing) Qty: 90 0RF prednisone 10 mg tablet See Rx Instructions .ROUTE .COMPLEX Qty: 16 0RF Rx Instructions: Five tablets p.o. x1 day, then 4 tablets p.o. x1 day, then 3 tablets p.o. x1 day, then 2 tablets p.o. x1 day, then 1 tablet p.o. q.day x2 days. omeprazole 20 mg capsule,delayed release(DR/EC) 20 mg PO DAILY albuterol sulfate 90 mcg/actuation HFA aerosol inhaler 1 puff Inhalation PRN PRN (Reason: Shortness Of Breath) fluticasone propionate 50 mcg/actuation spray,suspension 1 spray Intranasal DIRECTED loratadine 10 mg tablet 10 mg PO DAILY Referrals: Christian Moreno ARNP [Primary Care Provider] - Visit Report Forms: Patient Portal/API <Neva Sanches DO - Last Filed: 09/30/21 08:42> Cosign ED Attending Cosignature Attestation: I was immediately available in the department for consultation. Documentation has been reviewed. I agree with assessment and plan.
[2021-09-28 15:38] VITALS: BP 144/82; PULSE 72; RESP 12; O2SAT 98
== END 2021-09-28 15:39 | disposition home or self-care (01) ==
PROVIDERS: Emergency Provider Registered Nurse; PCP Nurse Practitioner Family
DX: R51.9 Headache, unspecified (principal); W22.8XXA Striking against or struck by other objects, initial encounter
CPT/HCPCS: 70450; 99283

== ENCOUNTER 2022-03-27 12:06 | Emergency (ER) | payer OTHER, SELFPAY ==
[2022-03-27] VITALS (11 sets, daily range): BP systolic 125–178; BP diastolic 59–94; PULSE 86–105; RESP 14–26; TEMP 36.5; O2SAT 96–99; BMI 30.2
--- NOTE | 2022-03-27 12:18 | DI.RAD.S_ITS ---
PROCEDURE: XR CHEST 1V INDICATIONS: chest pain TECHNIQUE: One view of the chest was acquired. COMPARISON: [facility], CR, XR CHEST 2V, 06/18/2018, 11:54. [facility], CR, XR CHEST 1V, 02/24/2021, 8:48. [facility], CR, XR CHEST 1V, 08/06/2020, 6:28. FINDINGS: Surgical changes and devices: None. Lungs and pleura: No acute appearing airspace opacity. No pleural effusions or pneumothorax. Mediastinum: Mediastinal contours appear normal. Heart size is normal. Bones and chest wall: No suspicious bony lesions. Overlying soft tissues appear unremarkable. IMPRESSION: No acute cardiopulmonary abnormality. Dictated by: Manolo Ortiz M.D. on 03/27/2022 at 13:14 Approved by: Manolo Ortiz M.D. on 03/27/2022 at 13:18
--- NOTE | 2022-03-27 12:28 | ED.SOB ---
HPI - SOB/Dyspnea General Chief Complaint: Asthma Stated Complaint: difficulty breathing Time Seen by Provider: 03/27/22 12:18 Source: patient Mode of arrival: Ambulatory Limitations: no limitations History of Present Illness HPI Narrative: This is a 61-year-old male with known hypertension, dyslipidemia, asthma or COPD, GERD who presents with complaint of increasing cough and shortness of breath for the past 2 or 3 days. Patient states he is had a cough that has been productive with some brownish sputum, he states he has been using Robitussin and Mucinex with minimal improvement. States yesterday he started feeling increasingly short of breath and started using his albuterol inhaler every 4 hours and today could not move any air so presented. He denies fevers, had some nasal congestion. He states his chest feels tight and he has pain when he coughs. He states it is very hard to lay flat he feels like he can not breathe when he lays flat. Patient denies any swelling in his extremities. He denies any surgeries. No cardiac stents. No tobacco, occasional alcohol he states a Kishan, no illicit. He states he often has received steroids when he has issues with breathing like this and they are usually very helpful. He denies any allergies to drugs. Related Data Home Medications Medication Instructions Recorded Confirmed albuterol sulfate 90 mcg/actuation 1 puff inhalation PRN PRN 06/18/18 11/27/20 aerosol inhaler Shortness Of Breath fluticasone propionate 50 1 spray intranasal DIRECTED 06/18/18 11/27/20 mcg/actuation nasal spray,suspension loratadine 10 mg tablet 10 mg PO DAILY 06/18/18 11/27/20 omeprazole 20 mg capsule,delayed 20 mg PO DAILY 06/18/18 11/27/20 release fluticasone propionate 110 1 puff inhalation DAILY 11/27/20 11/27/20 mcg/actuation HFA aerosol inhaler (Flovent HFA) Previous Rx's Medication Instructions Recorded albuterol sulfate 2.5 mg/3 mL 2.5 mg (3 mL) inhalation Q4H PRN 02/24/21 (0.083 %) solution for nebulization shortness of breath or wheezing #90 mL albuterol sulfate 2.5 mg/3 mL 2.5 mg (3 mL) inhalation Q4H PRN 02/24/21 (0.083 %) solution for nebulization shortness of breath or wheezing #90 mL prednisone 10 mg tablet See Rx Instructions .Route 02/24/21 .COMPLEX #16 tabs prednisone 10 mg tablet See Rx Instructions .Route 02/24/21 .COMPLEX #16 tabs albuterol sulfate 2.5 mg/3 mL 2.5 mg (3 mL) inhalation Q4-6H PRN 03/27/22 (0.083 %) solution for nebulization shortness of breath or wheezing #90 mL albuterol sulfate 90 mcg/actuation 2 puff inhalation QID PRN 03/27/22 aerosol inhaler shortness of breath or wheezing #8.5 grams prednisone 10 mg tablets in a dose See Rx Instructions PO .COMPLEX 03/27/22 pack #21 ea Allergies Allergy/AdvReac Type Severity Reaction Status Date / Time No Known Drug Allergies Allergy Verified 03/27/22 12:10 Review of Systems Review of Systems ROS Unobtainable: All systems reviewed & are unremarkable except as noted in HPI and below Patient History Medical History (Updated 03/27/22 @ 12:55 by Mile Donis DO) Asthma Social History household members: spouse Smoking Status: Former smoker Smoking Status: Former smoker tobacco type: cigarettes alcohol intake frequency: a few times a week Substance Use Type: does not use Exam Narrative Exam Narrative: GENERAL: Alert and oriented x three, male in moderate distress. HEENT: Head normocephalic, atraumatic, EOMI, pupils reactive, face symmetric, moist mucous membranes, minimal nasal rhinorrhea. NECK: Supple, full range of motion CARDIOVASCULAR: Tachycardic but Regular rate and rhythm without murmurs, rubs or gallops. No JVD. No swelling bilateral lower extremities. RESPIRATORY: Breath sounds equal bilaterally, bilateral wheezem, no rales or rhonchi. Positive tachypnea, positive for accessory muscle use. Patient had received albuterol just prior to me being seeing the patient and he states his breathing is already improving. He is now speaking in full sentences. ABDOMEN: Soft, nontender. Normoactive bowel sounds all 4 quadrants. No guarding or rebound, rigidity, no mass : No CVA tenderness EXTREMITIES: Normal range of motion, no clubbing or edema. Neurovascularly intact NEUROLOGICAL: Cranial nerves II through XII grossly intact. Moving all extremities SKIN: Warm, dry, no petechiae, no rashes or lesions. Initial Vital Signs Initial Vital Signs: Vital Signs Temperature 97.7 F 03/27/22 12:10 Pulse Rate 100 H 03/27/22 12:10 Respiratory Rate 22 03/27/22 12:10 Blood Pressure 178/94 H 03/27/22 12:10 Pulse Oximetry 99 03/27/22 12:10 Oxygen Delivery Method 03/27/22 12:10 Course Orders Ordered: Discontinued Medications Albuterol (Albuterol 1.25 Mg/3 Ml Neb (Pediatric)) 1.25 mg INH NOW ONE Stop: 03/27/22 12:23 Last Admin: 03/27/22 12:36 Dose: 1.25 mg Documented By: DARIO Albuterol (Albuterol 2.5 Mg/3 Ml Neb (Adult)) 20 mg INH NOW ONE Stop: 03/27/22 14:19 Last Admin: 03/27/22 14:32 Dose: 20 mg Documented By: ALEJANDRO Albuterol/Ipratropium (Albuterol/Ipratropium 3 Ml Ampul) 3 ml INH NOW ONE Stop: 03/27/22 12:19 Last Admin: 03/27/22 12:36 Dose: 3 ml Documented By: DARIO Aspirin (Aspirin 81 Mg Chew Tab) 324 mg PO NOW ONE Stop: 03/27/22 12:19 Last Admin: 03/27/22 12:25 Dose: Not Given Documented By: DARIO Sodium Chloride (Normal Saline 0.9%) 1,000 mls @ 150 mls/hr IV CONT SHAYAN Methylprednisolone (Methylprednisolone 125 Mg/2 Ml Vial) 125 mg IV NOW ONE Stop: 03/27/22 12:19 Last Admin: 03/27/22 12:36 Dose: 125 mg Documented By: DARIO Reevaluation(s) Reevaluation #1: Patient has improved but still has wheeze on exam. He states much better but does not feel normal. Will give additional neb treatment and if needed magnesium. Time: 14:12 Reevaluation #2: Patient is feeling improved he has very mild wheeze but he feels much better he does feel shaky but feels like his lungs have opened up significantly. He did receive quite a bit of albuterol. He feels safe for discharge home. [facility] them up in the morning he states he is plenty of albuterol at home, he does still have a steroid inhaler he states he is using it regularly. Patient plan for script for albuterol vials, inhaler in case he runs out as well as oral prednisone. Will hold off on magnesium patient appears to be much improved. Time: 16:26 Vital Signs Vital signs: Vital Signs - 8 hr 03/27/22 12:10 03/27/22 13:32 Temperature 97.7 F Pulse Rate 100 H 90 Respiratory Rate 22 17 Blood Pressure 178/94 H Pulse Oximetry 99 97 Oxygen Delivery Method Room Air MDM - SOB/Dyspnea Lab Data Result diagrams: 03/27/22 12:32 03/27/22 12:32 Labs: Lab Results 03/27/22 03/27/22 03/27/22 Range/Units 12:16 12:16 12:32 WBC 11.3 H (4.5-11.0) X10^3/uL RBC 6.54 H (4.5-5.9) X10^6/uL Hgb 14.2 (13.5-17.5) g/dL Hct 44.0 (41-53) % MCV 67.3 L (80-100) fL MCH 21.8 L (26-34) PG MCHC 32.3 (30-36) % RDW 16.3 H (11.6-14.8) % Plt Count 305 (150-400) X10^3/uL Neut % (Auto) 67.9 (50-75) % Lymph % (Auto) 17.7 L (25-40) % [place] % (Auto) 8.4 (3-14) % Eos % (Auto) 5.2 H (2-4) % Baso % (Auto) 0.8 (0-2) % Neut # (Auto) 7700 H (3100-7656) /uL Lymph # (Auto) 2000 (5249-7730) /uL [place] # (Auto) 1000 H (0-900) /uL Eos # (Auto) 600 H (0-450) /uL Baso # (Auto) 100 (0-100) /uL RBC Morphology See below Hypochromasia 1+ H Anisocytosis 1+ H Microcytosis 1+ H Target Cells 1+ H PT (10.1-12.7) SECONDS INR (0.9-1.3) APTT (26-36) SECONDS Sodium (137-145) mmol/L Potassium (3.4-5.1) mmol/L Chloride (98-107) mmol/L Carbon Dioxide (22-32) mmol/L BUN (9-20) mg/dL Creatinine (0.66-1.25) mg/dL Estimated GFR (>60) mL/min BUN/Creatinine Ratio (6-22) Glucose (80-110) mg/dL Calcium (8.4-10.2) mg/dL Total Bilirubin (0.2-1.3) mg/dL AST (17-59) IU/L ALT (<50) IU/L Alkaline Phosphatase (38-126) U/L Total Creatine Kinase (55-170) U/L CK-MB (CK-2) (<2.37) ng/mL CK-MB (CK-2) Rel Index (1.5-5.0) % Troponin I (0.01-0.034) ng/mL NT-Pro-B Natriuret Pep (<125) pg/mL Total Protein (6.3-8.2) g/dL Albumin (3.5-5.0) g/dL Globulin (1.7-4.1) g/dL Albumin/Globulin Ratio (1.0-2.8) Lipase (23-300) U/L SARS-CoV-2 (PCR) Negative Negative (Negative) Influenza A (RT-PCR) Flu a negative (NEGATIVE) Influenza B (RT-PCR) Flu b negative (NEGATIVE) RSV (PCR) Negative (Negative) 03/27/22 03/27/22 Range/Units 12:32 12:32 WBC (4.5-11.0) X10^3/uL RBC (4.5-5.9) X10^6/uL Hgb (13.5-17.5) g/dL Hct (41-53) % MCV (80-100) fL MCH (26-34) PG MCHC (30-36) % RDW (11.6-14.8) % Plt Count (150-400) X10^3/uL Neut % (Auto) (50-75) % Lymph % (Auto) (25-40) % [place] % (Auto) (3-14) % Eos % (Auto) (2-4) % Baso % (Auto) (0-2) % Neut # (Auto) (4269-8488) /uL Lymph # (Auto) (2295-6059) /uL [place] # (Auto) (0-900) /uL Eos # (Auto) (0-450) /uL Baso # (Auto) (0-100) /uL RBC Morphology Hypochromasia Anisocytosis Microcytosis Target Cells PT 11.4 (10.1-12.7) SECONDS INR 1.0 (0.9-1.3) APTT 37 H (26-36) SECONDS Sodium 142 (137-145) mmol/L Potassium 3.7 (3.4-5.1) mmol/L Chloride 106 (98-107) mmol/L Carbon Dioxide 22 (22-32) mmol/L BUN 10 (9-20) mg/dL Creatinine 0.70 (0.66-1.25) mg/dL Estimated GFR > 60 (>60) mL/min BUN/Creatinine Ratio 14.3 (6-22) Glucose 121 H (80-110) mg/dL Calcium 9.1 (8.4-10.2) mg/dL Total Bilirubin 0.3 (0.2-1.3) mg/dL AST 36 (17-59) IU/L ALT 48 (<50) IU/L Alkaline Phosphatase 57 (38-126) U/L Total Creatine Kinase 140 (55-170) U/L CK-MB (CK-2) 1.43 (<2.37) ng/mL CK-MB (CK-2) Rel Index 1.0 L (1.5-5.0) % Troponin I < 0.012 (0.01-0.034) ng/mL NT-Pro-B Natriuret Pep 27 (<125) pg/mL Total Protein 8.1 (6.3-8.2) g/dL Albumin 4.6 (3.5-5.0) g/dL Globulin 3.5 (1.7-4.1) g/dL Albumin/Globulin Ratio 1.3 (1.0-2.8) Lipase 80 (23-300) U/L SARS-CoV-2 (PCR) (Negative) Influenza A (RT-PCR) (NEGATIVE) Influenza B (RT-PCR) (NEGATIVE) RSV (PCR) (Negative) Imaging Data Chest x-ray: Radiologist's Impression: [address] [address] XRay Report Signed Patient: Guy Cox MR#: [id number] : 1960 Acct:[id number] Age/Sex: 61 / M Date of Service: 03/27/22 Loc: ED Accession Number: [id number] ?? Procedure: XR chest 1V Ordering Provider: Mile Donis D.O. PROCEDURE:? XR CHEST 1V ? INDICATIONS:? chest pain ? TECHNIQUE:? One view of the chest was acquired.? ? COMPARISON:? [facility], CR, XR CHEST 2V, 06/18/2018, 11:54.? [facility], CR, XR CHEST 1V, 02/24/2021, 8:48.? [facility], CR, XR CHEST 1V, 08/06/2020, 6:28. ? FINDINGS:? ? Surgical changes and devices:? None.? ? Lungs and pleura:? No acute appearing airspace opacity.? No pleural effusions or pneumothorax.? ? Mediastinum:? Mediastinal contours appear normal.? Heart size is normal.? ? Bones and chest wall:? No suspicious bony lesions.? Overlying soft tissues appear unremarkable.? ? IMPRESSION:? No acute cardiopulmonary abnormality. ? ? Dictated by: Manolo Ortiz M.D. on 03/27/2022 at 13:14 ? ? Approved by: Manolo Ortiz M.D. on 03/27/2022 at 13:18?? ECG Data Attestation: I personally reviewed and interpreted this ECG as follows: Prior ECG tracings: available for review Interpretation: Sinus rhythm rate of 100 PA 146 QRS 90 QTC [address]. No acute ST changes appreciated. Patient has prior from 02/24/2021 which appears similar. MDM Narrative Medical decision making narrative: This is a 61-year-old male who presents with wheezing, tachypnea accessory muscle use. Patient had improvement after albuterol, had another DuoNeb, patient had improvement but still quite tight did not feel like he was approaching his normal baseline so was given 20 mg albuterol neb as well. Labs overall reassuring, COVID/RSV/influenza is negative although there is quite a bit of other viral illnesses recently. Chest x-ray does not show acute change. Patient's wheezing has improved quite a bit on recheck, patient feels like he is safe for discharge home he does not have the same level of accessory muscle use. Wheezes almost completely abated he is no longer tachypneic. He is not been hypotensive. Patient states he is on a steroid inhaler daily so we will not change this but will add a course of oral prednisone, patient can start tomorrow as he had IV prednisone today, albuterol for his nebulizer at home and inhaler in case he runs out. Patient recommended short-term follow-up. He is still on a daily anti allergy medication as well. Discharge Plan Departure Patient Disposition: Home Clinical Impression: Acute exacerbation of chronic obstructive pulmonary disease Instructions: COPD: When to Call for Help Activity Restrictions/Additional Instructions: Please follow-up with your physician this coming week for recheck. Continue home medications including her daily steroid inhaler and loratadine daily. Take oral steroids until completely gone. I would recommend using albuterol 4-8 puffs or nebulizer every 4-6 hours for the next 24 hours and then decrease to as needed. Prescription sent to [facility] pharmacy Please return if you are having worsening shortness of breath, lightheadedness or passing out, increasing chest tightness or pain or pressure, new swelling in your extremities, increasing difficulty breathing or other new or concerning changes. Prescriptions: New albuterol sulfate 2.5 mg /3 mL (0.083 %) solution for nebulization 2.5 mg inhalation Q4-6H PRN (Reason: shortness of breath or wheezing) Qty: 90 0RF albuterol sulfate 90 mcg/actuation HFA aerosol inhaler 2 puff inhalation QID PRN (Reason: shortness of breath or wheezing) Qty: 8.5 0RF prednisone 10 mg tablets,dose pack See Rx Instructions .ROUTE .COMPLEX Qty: 21 0RF Rx Instructions: Take 6 tablets p.o. x1 day, then 5 tablets p.o. times 24 hours, then 4 tablets p.o. times 24 hours, then 3 tablets p.o. times 24 hours, then 2 tablets p.o. times 24 hours, the 1 tablet p.o. times 24 hours No Action Flovent HFA 110 mcg/actuation HFA aerosol inhaler 1 puff INHALATION DAILY albuterol sulfate 2.5 mg /3 mL (0.083 %) solution for nebulization 2.5 mg inhalation Q4H PRN (Reason: shortness of breath or wheezing) Qty: 90 0RF prednisone 10 mg tablet See Rx Instructions .ROUTE .COMPLEX Qty: 16 0RF Rx Instructions: Five tablets po x1 day, then 4 tablets x1 day, 3 tablets x1 day, 2 tablets x1 day, 1 tablet p.o. q.day x2 days albuterol sulfate 2.5 mg /3 mL (0.083 %) solution for nebulization 2.5 mg inhalation Q4H PRN (Reason: shortness of breath or wheezing) Qty: 90 0RF prednisone 10 mg tablet See Rx Instructions .ROUTE .COMPLEX Qty: 16 0RF Rx Instructions: Five tablets p.o. x1 day, then 4 tablets p.o. x1 day, then 3 tablets p.o. x1 day, then 2 tablets p.o. x1 day, then 1 tablet p.o. q.day x2 days. omeprazole 20 mg capsule,delayed release(DR/EC) 20 mg PO DAILY albuterol sulfate 90 mcg/actuation HFA aerosol inhaler 1 puff Inhalation PRN PRN (Reason: Shortness Of Breath) fluticasone propionate 50 mcg/actuation spray,suspension 1 spray Intranasal DIRECTED loratadine 10 mg tablet 10 mg PO DAILY Referrals: Christian Moreno ARNP [Primary Care Provider] - Stand Alone Forms: Patient Portal/API
[2022-03-27] MEDS: ALBUTEROL 1.25 MG/3 ML NEB (PEDIATRIC) INH (12:36)
[2022-03-27] MEDS: ALBUTEROL/IPRATROPIUM 3 ML AMPUL INH (12:36)
[2022-03-27] MEDS: methylPREDNISolone 125 MG/2 ML VIAL IV (12:36)
[2022-03-27 12:54] LABS: COVID19 -Nasal RAPID Negative (Negative)
--- NOTE | 2022-03-27 12:55 | PC.NURSE ---
Pt had 2 breathing tx,feeling much better,now able to speak in full sentences,no longer appears in distress.
[2022-03-27 12:57] LABS: Add Manual Diff / Slide Review NO; Basophils Absolute Auto 100 /uL (0-100); Basophils Percent Auto 0.8 % (0-2); Eosinophils Absolute Auto 600 /uL (0-450); Eosinophils Percent Auto 5.2 % (2-4); Hemoglobin 14.2 g/dL (13.5-17.5); Lymphocytes Absolute Auto 2000 /uL (1100-4500); Lymphocytes Percent Auto 17.7 % (25-40); Mean Corpuscular HGB Conc 32.3 % (30-36); Mean Corpuscular Hemoglobin 21.8 PG (26-34); Monocytes Absolute Auto 1000 /uL (0-900); Monocytes Percent Auto 8.4 % (3-14); Neutrophils Absolute Auto 7700 /uL (1500-7000); Neutrophils Percent Auto 67.9 % (50-75); Platelet Count 305 X10^3/uL (150-400); Red Blood Cell Count 6.54 X10^6/uL (4.5-5.9); Red Cell Distribution Width 16.3 % (11.6-14.8); White Blood Cell Count 11.3 X10^3/uL (4.5-11.0)
[2022-03-27 12:58] LABS: Mean Corpuscular Volume 67.3 fL (80-100)
[2022-03-27 13:07] LABS: Prothrombin Time 11.4 SECONDS (10.1-12.7)
[2022-03-27 13:08] LABS: Alanine Aminotransferase 48 IU/L (<50); Albumin 4.6 g/dL (3.5-5.0); Albumin Globulin Ratio 1.3 (1.0-2.8); Alkaline Phosphatase 57 U/L (38-126); Aspartate Aminotransferase 36 IU/L (17-59); BUN Creatinine Ratio 14.3 (6-22); Bilirubin Total 0.3 mg/dL (0.2-1.3); Blood Urea Nitrogen 10 mg/dL (9-20); Calcium 9.1 mg/dL (8.4-10.2); Carbon Dioxide 22 mmol/L (22-32); Chloride 106 mmol/L (98-107); Creatine Kinase 140 U/L (55-170); Estimated Glomerular Filt Rate > 60 mL/min (>60); Globulin 3.5 g/dL (1.7-4.1); Glucose 121 mg/dL (80-110); HEMOLYSIS < 15 (0-50); Lipase 80 U/L (23-300); Potassium 3.7 mmol/L (3.4-5.1); Sodium 142 mmol/L (137-145); Total Protein 8.1 g/dL (6.3-8.2)
[2022-03-27 13:09] LABS: PTT Partial Thromboplastin Tim 37 SECONDS (26-36)
[2022-03-27 13:15] LABS: Influenza A - CEPHEID Flu A NEGATIVE (NEGATIVE); Influenza B - CEPHEID Flu B NEGATIVE (NEGATIVE); Respiratory Syncytial Virus Negative (Negative)
[2022-03-27 13:20] LABS: NT-proBNP (BNP-Adult 18+) 27 pg/mL (<125); Troponin I < 0.012 ng/mL (0.01-0.034)
[2022-03-27 13:23] LABS: Creatine Kinase MB 1.43 ng/mL (<2.37)
[2022-03-27 13:33] LABS: Anisocytosis 1+; Hypochromasia 1+; Microcytosis 1+; Target Cells 1+
[2022-03-27 13:44] LABS: COVID-19 CEPHEID 4-PLEX PCR Negative (Negative)
[2022-03-27] MEDS: ALBUTEROL 2.5 MG/3 ML NEB (ADULT) 20 MG INH (14:32)
--- NOTE | 2022-03-27 16:29 | RT ---
pt alexandro cont alb neb tx well, pt states he feels better and on room air. Sao2 @95%
== END 2022-03-27 16:44 | disposition home or self-care (01) ==
PROVIDERS: Emergency Provider Emergency Medicine; PCP Nurse Practitioner Family
DX: J44.1 Chronic obstructive pulmonary disease with (acute) exacerbation (principal); R07.9 Chest pain, unspecified; Z20.822 Contact with and (suspected) exposure to COVID-19
CPT/HCPCS: 0241U; 36415; 71045; 80053; 82550; 82553; 83690; 83880; 84484; 85025; 85610; 85730; 87635; 93005; 96374; 99284; C9803; J2930; J7613

== ENCOUNTER 2022-12-06 09:47 | Emergency (ER) | payer OTHER, SELFPAY ==
[2022-12-06] VITALS (9 sets, daily range): BP systolic 137–168; BP diastolic 75–83; PULSE 75–92; RESP 18–32; TEMP 36.8; O2SAT 95–98; BMI 30.5
--- NOTE | 2022-12-06 09:54 | ED.SOB ---
HPI - SOB/Dyspnea General Chief Complaint: Shortness of Breath/Dyspnea Stated Complaint: SOB, chest pain Time Seen by Provider: 12/06/22 09:54 Source: patient, RN notes reviewed and old records reviewed Mode of arrival: Ambulatory Limitations: no limitations History of Present Illness HPI Narrative: This is a 62-year-old male history of hypertension, dyslipidemia, asthma or COPD, GERD who presents with complaint of shortness of breath and wheezing. Patient states last month he did some house painting which seemed to cause a flare he took prednisone for 30 tabs total at a (5 mg x 2 days, 4 mg x 2 days, 3 mg x 2 days, 2 mg x 2 days, 1 mg x 2 days taper) and doxycycline for 10 days. He felt like he had improved but maybe had a little bit of residual. He states his 1st dose was on 11/10/2022 and completed these around 824. He states last Thursday the 24 of November he started to feel wheezy again. He is noticed cough when he is talking, shortness of breath, chest tightness when he is very wheezy. He has been using his nebulizer every 4 hours which is sometimes helpful but not always. He states he has been adding his rescue inhaler as well. He states he uses Asmanex daily whether he feels good or bad. Patient states no fevers or chills. Chest pain is only when he is very tight or wheezy describes it as substernal without radiation. Denies any nausea or vomiting. No diaphoresis. He states he is had a little bit of productive cough he describes it as brown. Denies any new swelling of extremities. No other GI or urinary symptoms. Patient states he is on medication for blood pressure, dyslipidemia denies any diabetes. He states he uses nebulizer at home, albuterol rescue inhaler as needed and Asmanex. Denies any prior surgeries. Denies any known drug allergies. He does not appreciate any seasonality but thinks that painting the house may have been what flared his episode. He describes a 10 year smoking history, quit about 15 years ago. Occasional alcohol but not regularly. No illicit or recreational drugs. Related Data Home Medications Medication Instructions Recorded Confirmed albuterol sulfate 90 mcg/actuation 1 puff inhalation PRN PRN 06/18/18 12/06/22 aerosol inhaler Shortness Of Breath fluticasone propionate 50 1 spray intranasal DIRECTED 06/18/18 11/27/20 mcg/actuation nasal spray,suspension loratadine 10 mg tablet 10 mg PO DAILY 06/18/18 11/27/20 omeprazole 20 mg capsule,delayed 20 mg PO DAILY 06/18/18 11/27/20 release fluticasone propionate 110 1 puff inhalation DAILY 11/27/20 11/27/20 mcg/actuation HFA aerosol inhaler (Flovent HFA) Previous Rx's Medication Instructions Recorded albuterol sulfate 2.5 mg/3 mL 2.5 mg (3 mL) inhalation Q4H PRN 02/24/21 (0.083 %) solution for nebulization shortness of breath or wheezing #90 mL azithromycin 250 mg tablet See Rx Instructions PO .COMPLEX #6 12/06/22 tabs mometasone 200 mcg/actuation HFA 2 inh inhalation BID #13 grams 12/06/22 aerosol inhaler (Asmanex HFA) prednisone 10 mg tablets in a dose See Rx Instructions PO .COMPLEX 12/06/22 pack #21 ea Allergies Allergy/AdvReac Type Severity Reaction Status Date / Time No Known Drug Allergies Allergy Verified 03/27/22 12:10 Review of Systems Review of Systems ROS Unobtainable: All systems reviewed & are unremarkable except as noted in HPI and below Patient History Medical History (Updated 12/06/22 @ 11:38 by Mile Donis DO) Asthma Social History household members: spouse Smoking Status: Former smoker Smoking Status: Former smoker tobacco type: cigarettes alcohol intake frequency: a few times a week Substance Use Type: does not use Exam Narrative Exam Narrative: GENERAL: Alert and oriented x three, male in mild distress. HEENT: Head normocephalic, atraumatic, EOMI, pupils reactive, face symmetric, moist mucous membranes NECK: Supple, full range of motion CARDIOVASCULAR: Regular rate and rhythm without murmurs, rubs or gallops. RESPIRATORY: Breath sounds equal bilaterally, no rales or rhonchi, patient has wheeze throughout the upper and lower. No accessory muscle use but is tachypneic. Is able to speak in full sentences occasional pursed lip. Patient is sitting backwards on the bed comfortably. ABDOMEN: Soft, nontender. Normoactive bowel sounds all 4 quadrants. No guarding or rebound, rigidity, no mass : No CVA tenderness EXTREMITIES: Normal range of motion, no clubbing or edema. 2+ pulses bilateral lower extremities. Neurovascularly intact NEUROLOGICAL: Cranial nerves II through XII grossly intact. Moving all extremities SKIN: Warm, dry, no petechiae, no rashes or lesions. Initial Vital Signs Initial Vital Signs: Vital Signs Pulse Rate 92 H 12/06/22 09:54 Respiratory Rate 21 12/06/22 09:54 Blood Pressure 168/83 H 12/06/22 09:54 Pulse Oximetry 98 12/06/22 09:54 Course Orders Ordered: ED Orders 12/06/22 09:59 Covid-19 + FLU A/B + RSV - PCR Stat 12/06/22 10:01 XR chest 1V Stat EKG-12 Lead Stat 12/06/22 10:02 RT Consult Eval and Treat NOW 12/06/22 10:15 BNP [NT-proBNP (BNP-Adult 18+)] Stat Complete Blood Count AUTO DIFF Stat Comprehensive Metabolic Panel Stat Lipase Stat Magnesium Stat PTT Partial Thromboplastin Kash Stat Prothrombin Time INR Stat Troponin & CK Cardiac Panel Stat Discontinued Medications Albuterol/Ipratropium (Albuterol/Ipratropium 3 Ml Ampul) 9 ml INH NOW ONE Stop: 12/06/22 10:10 Last Admin: 12/06/22 10:09 Dose: 9 ml Documented By: ANYI Methylprednisolone (Methylprednisolone 125 Mg/2 Ml Vial) 125 mg IV NOW ONE Stop: 12/06/22 10:11 Last Admin: 12/06/22 10:37 Dose: 125 mg Documented By: RAFAEL Prednisone (Prednisone 20 Mg Tablet) 60 mg PO NOW ONE Stop: 12/06/22 12:24 Last Admin: 12/06/22 12:26 Dose: 60 mg Documented By: JUDY Vital Signs Vital signs: Vital Signs - 8 hr 12/06/22 10:30 12/06/22 10:32 12/06/22 10:32 Pulse Rate 83 87 Respiratory Rate 26 H 22 Blood Pressure 139/80 Pulse Oximetry 96 97 Oxygen Delivery Method 12/06/22 11:00 12/06/22 11:00 12/06/22 11:30 Pulse Rate 81 Respiratory Rate 19 Blood Pressure 141/77 H 140/82 Pulse Oximetry 96 Oxygen Delivery Method 12/06/22 11:30 12/06/22 12:00 12/06/22 12:00 Pulse Rate 75 75 Respiratory Rate 18 18 Blood Pressure 137/75 Pulse Oximetry 97 98 Oxygen Delivery Method Room Air Room Air MDM - SOB/Dyspnea Lab Data 12/06/22 10:15 12/06/22 10:15 Labs: Lab Results 12/06/22 12/06/22 12/06/22 Range/Units 09:59 10:15 10:15 WBC 9.7 (4.5-11.0) X10^3/uL RBC 6.02 H (4.5-5.9) X10^6/uL Hgb 13.0 L (13.5-17.5) g/dL Hct 41.2 (41-53) % MCV 68.5 L (80-100) fL MCH 21.7 L (26-34) PG MCHC 31.6 (30-36) % RDW 16.9 H (11.6-14.8) % Plt Count 223 (150-400) X10^3/uL Neut % (Auto) 57.8 (50-75) % Lymph % (Auto) 20.3 L (25-40) % [place] % (Auto) 6.3 (3-14) % Eos % (Auto) 14.4 H (2-4) % Baso % (Auto) 1.2 (0-2) % Neut # (Auto) 5600 (0913-6151) /uL Lymph # (Auto) 2000 (9695-9137) /uL [place] # (Auto) 600 (0-900) /uL Eos # (Auto) 1400 H (0-450) /uL Baso # (Auto) 100 (0-100) /uL Platelet Estimate Adeq RBC Morphology See below Hypochromasia 1+ H Anisocytosis 1+ H Microcytosis 2+ H Target Cells 1+ H PT 11.6 (10.1-12.7) SECONDS INR 1.0 (0.9-1.3) APTT 22 L (26-36) SECONDS Sodium (137-145) mmol/L Potassium (3.4-5.1) mmol/L Chloride (98-107) mmol/L Carbon Dioxide (22-32) mmol/L BUN (9-20) mg/dL Creatinine (0.66-1.25) mg/dL Estimated GFR (>60) mL/min BUN/Creatinine Ratio (6-22) Glucose (80-110) mg/dL Calcium (8.4-10.2) mg/dL Magnesium (1.6-2.3) mg/dL Total Bilirubin (0.2-1.3) mg/dL AST (17-59) IU/L ALT (<50) IU/L Alkaline Phosphatase (38-126) U/L Total Creatine Kinase (55-170) U/L Troponin I (0.01-0.034) ng/mL NT-Pro-B Natriuret Pep (<125) pg/mL Total Protein (6.3-8.2) g/dL Albumin (3.5-5.0) g/dL Globulin (1.7-4.1) g/dL Albumin/Globulin Ratio (1.0-2.8) Lipase (23-300) U/L SARS-CoV-2 (PCR) Negative (Negative) Influenza A (RT-PCR) Flu a negative (NEGATIVE) Influenza B (RT-PCR) Flu b negative (NEGATIVE) RSV (PCR) Negative (Negative) 12/06/22 Range/Units 10:15 WBC (4.5-11.0) X10^3/uL RBC (4.5-5.9) X10^6/uL Hgb (13.5-17.5) g/dL Hct (41-53) % MCV (80-100) fL MCH (26-34) PG MCHC (30-36) % RDW (11.6-14.8) % Plt Count (150-400) X10^3/uL Neut % (Auto) (50-75) % Lymph % (Auto) (25-40) % [place] % (Auto) (3-14) % Eos % (Auto) (2-4) % Baso % (Auto) (0-2) % Neut # (Auto) (4131-7600) /uL Lymph # (Auto) (1121-4509) /uL [place] # (Auto) (0-900) /uL Eos # (Auto) (0-450) /uL Baso # (Auto) (0-100) /uL Platelet Estimate RBC Morphology Hypochromasia Anisocytosis Microcytosis Target Cells PT (10.1-12.7) SECONDS INR (0.9-1.3) APTT (26-36) SECONDS Sodium 139 (137-145) mmol/L Potassium 3.7 (3.4-5.1) mmol/L Chloride 107 (98-107) mmol/L Carbon Dioxide 21 L (22-32) mmol/L BUN 9 (9-20) mg/dL Creatinine 0.72 (0.66-1.25) mg/dL Estimated GFR > 60 (>60) mL/min BUN/Creatinine Ratio 12.5 (6-22) Glucose 111 H (80-110) mg/dL Calcium 9.4 (8.4-10.2) mg/dL Magnesium 2.0 (1.6-2.3) mg/dL Total Bilirubin 0.6 (0.2-1.3) mg/dL AST 34 (17-59) IU/L ALT 36 (<50) IU/L Alkaline Phosphatase 45 (38-126) U/L Total Creatine Kinase 146 (55-170) U/L Troponin I < 0.012 (0.01-0.034) ng/mL NT-Pro-B Natriuret Pep 40 (<125) pg/mL Total Protein 7.2 (6.3-8.2) g/dL Albumin 4.2 (3.5-5.0) g/dL Globulin 3.0 (1.7-4.1) g/dL Albumin/Globulin Ratio 1.4 (1.0-2.8) Lipase 98 (23-300) U/L SARS-CoV-2 (PCR) (Negative) Influenza A (RT-PCR) (NEGATIVE) Influenza B (RT-PCR) (NEGATIVE) RSV (PCR) (Negative) Imaging Data Chest x-ray: Radiologist's Impression: [address] [address] XRay Report Signed Patient: Guy Cox MR#: [id number] : 1960 Acct:[id number] Age/Sex: 62 / M Date of Service: 12/06/22 Loc: ED Accession Number: [id number] ?? Procedure: XR chest 1V Ordering Provider: Mile Donis D.O. PROCEDURE:? XR CHEST 1V ? INDICATIONS:? chest pain ? TECHNIQUE:? One view of the chest was acquired.? ? COMPARISON:? [facility], CR, XR CHEST 1V, 03/27/2022, 13:05. ? FINDINGS:? ? Surgical changes and devices:? None.? ? Lungs and pleura:? Lungs are clear.? No pleural effusions or pneumothorax.? ? Mediastinum:? Mediastinal contours appear normal.? Heart size is normal.? ? Bones and chest wall:? No suspicious bony lesions.? Overlying soft tissues appear unremarkable.? ? ? IMPRESSION:? No acute cardiopulmonary findings ? ? ? Approved by: Zackary Sanchez M.D. on 12/06/2022 at 9:56? ECG Data Attestation: I personally reviewed and interpreted this ECG as follows: Prior ECG tracings: available for review Interpretation: Sinus rhythm nonspecific T-wave change. Rate 83 [place] 152 QRS of [address] No acute [address] elevation depression appreciated. Patient has prior from 03/27/2022 which appears fairly similar no significant ST changes appreciated from prior. MDM Narrative Medical decision making narrative: This is a 62-year-old male who has a history of COPD/asthma, is wheezy throughout notes probably had initiating event of painting a house was on steroids and doxycycline which seemed to improve his symptoms but then flared again after completing them. Patient is not hypoxic, has wheeze throughout on exam, he is not tachycardic but heart rates in the 90s. Not hypoxic slightly tachypneic. Patient was given DuoNeb x3, Solu-Medrol. Because of patient's age and hypertension dyslipidemia history cardiac enzymes, chest x-ray EKG were obtained. Patient did note some brownish productive sputum. Workup shows negative chest x-ray, no acute EKG changes. Hemoglobin shows a 13 was 14-13 range unless visits. No significant changes to electrolytes, renal function, LFTs with negative troponin and BNP. Patient's symptoms seem very consistent with COPD exacerbation does not feel requires repeat troponin at this time. Treatment: Patient feels much improved afterwards he is received DuoNebs, Solu-Medrol and on repeat examination lungs are clear. He feels significantly better. Heart rate has also improved he is 98% on room air. Patient states he feels comfortable returning home. Discussed with patient and discussed return precautions. Need for follow up if symptoms are better but not resolved for better maintenance therapies. He is using is Asmanex daily according to the patient. Discussed could add loratadine or similar medication to see if that is helpful and is still having frequent exacerbations are not resolving would benefit from further workup. Plan for oral steroids, continue with his Asmanex daily, DuoNebs and rescue inhaler every 4 hours as needed. Discussed with patient does have sounds like COPD history would probably be appropriate for oral antibiotic as this has been found to be helpful in individuals with flare. Discussed with patient he feels much better, no wheezing on examination. Discharge Plan Departure Patient Disposition: Home Clinical Impression: Acute exacerbation of chronic obstructive airways disease Activity Restrictions/Additional Instructions: Please follow-up with your physician for recheck especially if your symptoms are not resolved or are persistent. You may take prednisone until completed. Prescription for oral antibiotic was sent. I would recommend trying a loratadine, Claritin or similar medication [id number] once daily to see if this is helpful. There is also a refill for Asmanex, use this 1 puff twice daily regardless of whether you are feeling good or wheezy. You may use neb every 4 hours as needed for symptoms. Prescription sent to [facility] pharmacy in [place]. Please return for new or worsening symptoms, recurrent chest pain or pressure, shortness of breath, lightheadedness or passing out, increasing swelling of your extremities, increasing wheezing or tightness or other new or concerning changes. Prescriptions: New Asmanex HFA 200 mcg/actuation HFA aerosol inhaler 2 inh inhalation BID Qty: 13 0RF prednisone 10 mg tablets,dose pack See Rx Instructions .ROUTE .COMPLEX Qty: 21 0RF Rx Instructions: Take 6 tablets p.o. x1 day, then 5 tablets p.o. x1 day, then 4 tablets p.o. x1 day, 3 tablets p.o. x1 day, then 2 tablets p.o. x1 day, then 1 tablet p.o. x1 day azithromycin 250 mg tablet See Rx Instructions .ROUTE .COMPLEX Qty: 6 0RF Rx Instructions: For 250 mg dose pack: take 500 mg today (day 1), then 250 mg for 4 days (days 2-5) No Action Flovent HFA 110 mcg/actuation HFA aerosol inhaler 1 puff INHALATION DAILY albuterol sulfate 2.5 mg /3 mL (0.083 %) solution for nebulization 2.5 mg inhalation Q4H PRN (Reason: shortness of breath or wheezing) Qty: 90 0RF omeprazole 20 mg capsule,delayed release(DR/EC) 20 mg PO DAILY albuterol sulfate 90 mcg/actuation HFA aerosol inhaler 1 puff Inhalation PRN PRN (Reason: Shortness Of Breath) fluticasone propionate 50 mcg/actuation spray,suspension 1 spray Intranasal DIRECTED loratadine 10 mg tablet 10 mg PO DAILY Referrals: Christian Moreno ARNP [Primary Care Provider] - Stand Alone Forms: Patient Portal/API
--- NOTE | 2022-12-06 10:01 | DI.RAD.S_ITS ---
PROCEDURE: XR CHEST 1V INDICATIONS: chest pain TECHNIQUE: One view of the chest was acquired. COMPARISON: [facility], CR, XR CHEST 1V, 03/27/2022, 13:05. FINDINGS: Surgical changes and devices: None. Lungs and pleura: Lungs are clear. No pleural effusions or pneumothorax. Mediastinum: Mediastinal contours appear normal. Heart size is normal. Bones and chest wall: No suspicious bony lesions. Overlying soft tissues appear unremarkable. IMPRESSION: No acute cardiopulmonary findings Approved by: Zackary Sanchez M.D. on 12/06/2022 at 9:56
[2022-12-06] MEDS: ALBUTEROL/IPRATROPIUM 3 ML AMPUL 9 ML INH (10:09)
[2022-12-06 10:26] LABS: Basophils Absolute Auto 100 /uL (0-100); Basophils Percent Auto 1.2 % (0-2); Eosinophils Absolute Auto 1400 /uL (0-450); Eosinophils Percent Auto 14.4 % (2-4); Hematocrit 41.2 % (41-53); Lymphocytes Absolute Auto 2000 /uL (1100-4500); Lymphocytes Percent Auto 20.3 % (25-40); Mean Corpuscular HGB Conc 31.6 % (30-36); Mean Corpuscular Hemoglobin 21.7 PG (26-34); Mean Corpuscular Volume 68.5 fL (80-100); Monocytes Absolute Auto 600 /uL (0-900); Monocytes Percent Auto 6.3 % (3-14); Neutrophils Absolute Auto 5600 /uL (1500-7000); Neutrophils Percent Auto 57.8 % (50-75); Platelet Count 223 X10^3/uL (150-400); Red Blood Cell Count 6.02 X10^6/uL (4.5-5.9); Red Cell Distribution Width 16.9 % (11.6-14.8); White Blood Cell Count 9.7 X10^3/uL (4.5-11.0)
[2022-12-06 10:31] LABS: Add Manual Diff / Slide Review SLIDE REVIEW
[2022-12-06 10:36] LABS: Prothrombin Time 11.6 SECONDS (10.1-12.7)
[2022-12-06] MEDS: methylPREDNISolone 125 MG/2 ML VIAL IV (10:37)
[2022-12-06 10:38] LABS: PTT Partial Thromboplastin Tim 22 SECONDS (26-36)
[2022-12-06 10:48] LABS: Alanine Aminotransferase 36 IU/L (<50); Albumin 4.2 g/dL (3.5-5.0); Albumin Globulin Ratio 1.4 (1.0-2.8); Alkaline Phosphatase 45 U/L (38-126); Aspartate Aminotransferase 34 IU/L (17-59); BUN Creatinine Ratio 12.5 (6-22); Bilirubin Total 0.6 mg/dL (0.2-1.3); Blood Urea Nitrogen 9 mg/dL (9-20); Calcium 9.4 mg/dL (8.4-10.2); Carbon Dioxide 21 mmol/L (22-32); Chloride 107 mmol/L (98-107); Creatine Kinase 146 U/L (55-170); Estimated Glomerular Filt Rate > 60 mL/min (>60); Glucose 111 mg/dL (80-110); HEMOLYSIS 24 (0-50); Lipase 98 U/L (23-300); Potassium 3.7 mmol/L (3.4-5.1); Sodium 139 mmol/L (137-145); Total Protein 7.2 g/dL (6.3-8.2)
[2022-12-06 10:58] LABS: Anisocytosis 1+; Hypochromasia 1+; Microcytosis 2+; Platelet Estimate Adeq; Target Cells 1+
[2022-12-06 10:59] LABS: NT-proBNP (BNP-Adult 18+) 40 pg/mL (<125); Troponin I < 0.012 ng/mL (0.01-0.034)
[2022-12-06 11:11] LABS: Influenza A - CEPHEID Flu A NEGATIVE (NEGATIVE); Influenza B - CEPHEID Flu B NEGATIVE (NEGATIVE); Respiratory Syncytial Virus Negative (Negative)
[2022-12-06 11:12] LABS: COVID-19 CEPHEID 4-PLEX PCR Negative (Negative)
[2022-12-06] MEDS: predniSONE 20 MG TABLET 60 MG PO (12:26)
== END 2022-12-06 12:32 | disposition home or self-care (01) ==
PROVIDERS: Emergency Provider Emergency Medicine; PCP Nurse Practitioner Family
DX: J44.1 Chronic obstructive pulmonary disease with (acute) exacerbation (principal); R07.9 Chest pain, unspecified; Z20.822 Contact with and (suspected) exposure to COVID-19
CPT/HCPCS: 0241U; 36415; 71045; 80053; 82550; 83690; 83735; 83880; 84484; 85025; 85610; 85730; 93005; 93010; 94640; 96374; 99284; J2930

== ENCOUNTER → 2023-04-06 16:06 | Outpatient (CLI) | payer OTHER, SELFPAY ==
--- NOTE | 2023-04-06 16:08 | DI.MRI.S_ITS ---
PROCEDURE: MR BRAIN (IAC) WWO CON INDICATIONS: hearing loss TECHNIQUE: Noncontrast sagittal T1 spin echo, axial FLAIR, axial gradient echo, axial diffusion and ADC through the brain. Axial thin-slice 3D CISS, coronal TruFISP, axial T1 spin echo with fat saturation through the internal auditory canals. After the administration of contrast, thin slice axial and coronal T1 spin echo with fat saturation through the internal auditory canals, and axial and coronal and sagittal T1 spin echo with fat saturation through the brain. COMPARISON: None. FINDINGS: Image quality: Excellent. Cranial nerves: No cerebellopontine angle masses. Visualized cranial nerves demonstrate no areas of abnormal signal, enhancement or mass lesion. CSF spaces: Ventricles are normal in size and shape. No extra-axial fluid collections. Basal cisterns are patent. Brain: No intracranial bleeds or mass effects. Duran-white matter interface is intact. No abnormal intracranial enhancement. Diffusion weighted images demonstrate no acute ischemic insults. Brainstem appears normal. Normal intravascular flow voids are present. Skull and face: Calvarial marrow signal is normal. Orbits appear normal. Sinuses: Sinuses demonstrate scattered areas of mild pansinus mucosal thickening without fluid levels. IMPRESSION: Cranial nerves demonstrate no areas of abnormal signal, mass lesion or enhancement. No acute intracranial process. Dictated by: Jannet Gu M.D. on 04/06/2023 at 22:38 Approved by: Jannet Gu M.D. on 04/06/2023 at 22:42
== END ==
LOC: MRI 16:06
PROVIDERS: PCP Nurse Practitioner Family; Referring Provider Otolaryngology; Visit Provider Otolaryngology
DX: H90.42 Sensorineural hearing loss, unilateral, left ear, with unrestricted hearing on the contralateral side (principal)
CPT/HCPCS: 70553; A9579

== ENCOUNTER 2023-06-08 17:13 | Emergency (ER) | payer OTHER, SELFPAY ==
[2023-06-08 17:31] VITALS: BP 159/90; PULSE 66; RESP 18; TEMP 36; O2SAT 97; BMI 29.3
--- NOTE | 2023-06-08 17:41 | ED_ITS ---
HPI - Abdominal Pain <Michelle Xiong PA-C - Last Filed: 06/08/23 19:03> General Chief Complaint: Abdominal Pain Stated Complaint: lower rt abd pain Time Seen by Provider: 06/08/23 17:40 Source: patient Mode of arrival: Ambulatory History of Present Illness HPI narrative: 62 yo male c/o right inguinal pain x 8 days. He localized with one finger pointing the the right, suprapubic region but reports it's deep. He denies any fever, chills, recent illness, abdominal pain. Describes the pain as dull and mostly constant ache, no radiation of the pain to the abdomen or back. He denies any known injury, swelling, urinary or bowel symptoms or changes. Normal BM earlier and no diarrhea. He reports a similar occurrence about 2 years ago and told my doctor. It went away. Review of his medical record shows a CT abdomen/pelvis with contrast performed at that time with bilateral fat containing inguinal hernias and mild sigmoid diverticulitis. The pain seems to be worse when seated, or getting up from a chair as I am bending, not worse when laying flat. Not worse with other leg movements. Does report lately it has been waking me up from sleep. He had a colonscopy last year and they took some samples. Patient also reports they are monitoring my prostate. He denies any history of kidney stone, blood in urine, odor, penile discharge, scrotal pain or swelling. No issues starting his urine stream. Does endorse dribbling at times for the last several months. All other systems reviewed and are negative. Onset (ago): day(s) () Related Data Home Medications Medication Instructions Recorded Confirmed albuterol sulfate 90 mcg/actuation 1 puff inhalation PRN PRN 06/18/18 12/06/22 aerosol inhaler Shortness Of Breath fluticasone propionate 50 1 spray intranasal DIRECTED 06/18/18 11/27/20 mcg/actuation nasal spray,suspension loratadine 10 mg tablet 10 mg PO DAILY 06/18/18 11/27/20 omeprazole 20 mg capsule,delayed 20 mg PO DAILY 06/18/18 11/27/20 release fluticasone propionate 110 1 puff inhalation DAILY 11/27/20 11/27/20 mcg/actuation HFA aerosol inhaler (Flovent HFA) Previous Rx's Medication Instructions Recorded albuterol sulfate 2.5 mg/3 mL 2.5 mg (3 mL) inhalation Q4H PRN 02/24/21 (0.083 %) solution for nebulization shortness of breath or wheezing #90 mL azithromycin 250 mg tablet See Rx Instructions PO .COMPLEX #6 12/06/22 tabs mometasone 200 mcg/actuation HFA 2 inh inhalation BID #13 grams 12/06/22 aerosol inhaler (Asmanex HFA) prednisone 10 mg tablets in a dose See Rx Instructions PO .COMPLEX 12/06/22 pack #21 ea Allergies Allergy/AdvReac Type Severity Reaction Status Date / Time No Known Drug Allergies Allergy Verified 03/27/22 12:10 Review of Systems <Michelle Xiong PA-C - Last Filed: 06/08/23 19:03> Review of Systems Narrative: SEE HPI. All other systems reviewed and are negative. Constitutional Constitutional: Denies anorexia, Denies chills, Denies fatigue, Denies fever(s), Denies increased appetite, Denies malaise, Denies poor appetite and Denies weakness Cardiovascular Cardiovascular: Reports as per HPI, Denies chest pain and Denies dyspnea Respiratory Respiratory: Reports as per HPI, Denies cough and Denies dyspnea Gastrointestinal Gastrointestinal: Reports as per HPI, Denies abdominal pain, Denies melena, Denies bloating, Denies hematochezia, Denies change in bowel habits, Denies tenesmus, Denies change in stool character, Denies constipation, Denies cramping, Denies dyspepsia, Denies diarrhea, Denies loose stools and Denies vomiting Musculoskeletal Musculoskeletal: Reports system reviewed and no additional complaints, except as documented, Denies abnormal gait, Denies back pain, Denies myalgias and Denies muscle cramps Neurologic Neurologic: Denies abnormal gait and Denies weakness Endocrine Endocrine: Denies fatigue Patient History <Michelle Xiong PA-C - Last Filed: 06/08/23 19:03> Medical History (Updated 06/08/23 @ 20:05 by Neva Sanches DO) Asthma Social History household members: spouse Smoking Status: Former smoker Smoking Status: Former smoker tobacco type: cigarettes alcohol intake frequency: a few times a week Substance Use Type: does not use Exam <Michelle Xiong PA-C - Last Filed: 06/08/23 19:03> Initial Vital Signs Initial Vital Signs: Vital Signs Temperature 96.8 F L 06/08/23 17:31 Pulse Rate 66 06/08/23 17:31 Respiratory Rate 18 06/08/23 17:31 Blood Pressure 159/90 H 06/08/23 17:31 Pulse Oximetry 97 06/08/23 17:31 Oxygen Delivery Method Room Air 06/08/23 17:31 Reviewed and are normal except for elevated BP reading today. Const General: cooperative, healthy appearing, comfortable, well developed, well groomed, No acute distress, No in distress, No anxious, No diaphoretic, No ill appearing and well hydrated HENAR Head: normal to inspection, normocephalic and atraumatic Mouth: oral mucosae normal, lip normal, tongue normal, oropharynx normal and moist mucous membranes Eyes Sclera: sclerae normal Neck Lymphatic: No lymphedema and No lymphadenopathy Chest Chest: normal inspection of the chest Resp Effort & Inspection: normal respiratory effort, able to speak in complete sentences, no audible wheezes, no cough and no respiratory distress Auscultation: clear to auscultation bilaterally, no crackles, no rales, no rhonchi and no wheezes Cardio Palpation: normal PMI Rate: regular rate Rhythm: regular rhythm Heart Sounds: S1 normal and S2 normal GI Inspection: normal to inspection, no abdominal wall ecchymosis, no edema, non- distended, no incisions, no scars, no striae, no visible herniation and no visible pulsation Palpation: soft, no hepatosplenomegaly, No guarding, No hernia, No mass, No pulsatile mass and No tender Percussion: normal to percussion Auscultation: normal bowel sounds Rectal Exam: visual inspection normal, normal sphincter tone, prostate normal, No abnormal stool, No heme positive stool, heme negative stool and other (stool in rectal vault, non-tender exam) General: bimanual renal exam normal bilaterally, bladder normal to palpation and No CVA tenderness External: normal external exam, circumcised, no edema, no erythema, no hernia, no inguinal lymphadenopathy, no lesions and no scrotal swelling Penis: normal penis Meatus: meatus normal Scrotum: scrotum normal, cremasteric reflex present, no inguinal hernias, no masses and no scrotal swelling Skin Other: No appreciable inguinal hernia. No mass or guarding during examination in the standing and supine positions. Left side examined for comparison. No palpable or visible differences appreciated. Extrem Other: Full active ROM of lower extremities. No pain reproduced with abdominal flexion against resistance, hip flexors intact against resistance. No pain elicited with hip/groin external rotation. ADDuction and ABduction also grossly intact. Normal gait. <DO Anais Randall Last Filed: 06/09/23 03:14> Initial Vital Signs Initial Vital Signs: Vital Signs Temperature 96.8 F L 06/08/23 17:31 Pulse Rate 66 06/08/23 17:31 Respiratory Rate 18 06/08/23 17:31 Blood Pressure 159/90 H 06/08/23 17:31 Pulse Oximetry 97 06/08/23 17:31 Oxygen Delivery Method Room Air 06/08/23 17:31 Course <Michelle Xiong PA-C - Last Filed: 06/08/23 19:03> Orders Ordered: ED Orders 06/08/23 18:11 CT abdomen pelvis w con Stat 06/08/23 18:30 CBC Auto Diff [Complete Blood Count AUTO DIFF] Stat CMP [Comprehensive Metabolic Panel] Stat CT abdomen/pelvis with contrast. CBC, CMP. (previous serial creatinines normal at 0.72 11/2022) Vital Signs Vital signs: Vital Signs - 8 hr 06/08/23 19:18 06/08/23 20:12 Temperature 97.8 F Pulse Rate 56 L 56 L Respiratory Rate 14 20 Blood Pressure 162/79 H 167/100 H Pulse Oximetry 96 99 Oxygen Delivery Method Room Air Room Air Reviewed and are normal except for elevated BP reading. <DO Anais Randall Last Filed: 06/09/23 03:14> Orders Ordered: ED Orders 06/08/23 18:11 CT abdomen pelvis w con Stat 06/08/23 18:30 CBC Auto Diff [Complete Blood Count AUTO DIFF] Stat CMP [Comprehensive Metabolic Panel] Stat Vital Signs Vital signs: Vital Signs - 8 hr 06/08/23 19:18 06/08/23 20:12 Temperature 97.8 F Pulse Rate 56 L 56 L Respiratory Rate 14 20 Blood Pressure 162/79 H 167/100 H Pulse Oximetry 96 99 Oxygen Delivery Method Room Air Room Air MDM - Abdominal Pain <SIDNEY Lama Last Filed: 06/08/23 19:03> Differential Diagnosis Differential diagnosis: Likely other (Previous findings of fat containing inguinal hernias on CT 03/2021 along with sigmoid diverticulitis. Repeat study to eval for interval changes or new findings. ) Lab Data Lab results narrative: MANDO with guaiac NEGATIVE stool by this provider. 06/08/23 18:30 06/08/23 18:30 Labs: Lab Results 06/08/23 Range/Units 18:30 WBC 6.1 (4.5-11.0) X10^3/uL RBC 6.07 H (4.5-5.9) X10^6/uL Hgb 12.8 L (13.5-17.5) g/dL Hct 40.5 L (41-53) % MCV 66.7 L (80-100) fL MCH 21.1 L (26-34) PG MCHC 31.6 (30-36) % RDW 16.7 H (11.6-14.8) % Plt Count 293 (150-400) X10^3/uL Neut % (Auto) 45.4 L (50-75) % Lymph % (Auto) 33.1 (25-40) % [place] % (Auto) 9.9 (3-14) % Eos % (Auto) 8.2 H (2-4) % Baso % (Auto) 3.4 H (0-2) % Neut # (Auto) 2800 (2098-2396) /uL Lymph # (Auto) 2000 (2795-3638) /uL [place] # (Auto) 600 (0-900) /uL Eos # (Auto) 500 H (0-450) /uL Baso # (Auto) 200 H (0-100) /uL RBC Morphology See below Microcytosis 1+ H Sodium 140 (137-145) mmol/L Potassium 3.7 (3.4-5.1) mmol/L Chloride 110 H (98-107) mmol/L Carbon Dioxide 23 (22-32) mmol/L BUN 16 (9-20) mg/dL Creatinine 0.82 (0.66-1.25) mg/dL Estimated GFR > 60 (>60) mL/min BUN/Creatinine Ratio 19.5 (6-22) Glucose 111 H (80-110) mg/dL Calcium 9.1 (8.4-10.2) mg/dL Total Bilirubin 0.5 (0.2-1.3) mg/dL AST 41 (17-59) IU/L ALT 37 (<50) IU/L Alkaline Phosphatase 51 (38-126) U/L Total Protein 7.2 (6.3-8.2) g/dL Albumin 4.2 (3.5-5.0) g/dL Globulin 3.0 (1.7-4.1) g/dL Albumin/Globulin Ratio 1.4 (1.0-2.8) Point of care testing: Urine Dip Bedside Urine Glucose Negative Bedside Urine Bilirubin - Negative Bedside Urine Ketone - Negative Urine Specific [place] 1.030 Bedside Urine Occult Blood - Negative Bedside Urine pH 6.0 Bedside Urine Protein - Negative Bedside Urine Urobilinogen - Negative Bedside Urine Nitrite - Negative Bedside Urine Leukocytes - Negative Esterase MDM Narrative Medical decision making narrative: Well-appearing 62 yo male with 8 day history of focal right sided inguinal/suprapubic tenderness in the absence of known injury. No GI symptoms or recent illness. No urinary complaints. Previous CT abd/pelvis 03/2021 showed bilateral fat containing inguinal hernias and mild sigmoid diverticulitis. Concern for worsening hernia, though not appreciated on physical exam, versus other abdominal process. Patient transferred to Attending MD. Studies and labs pending at time of transfer except for POC urine which was negative and guaiac stool negative. [id number] handover report given to Dr. May at 1900hrs (patient still in CT at the time of transfer). <Neva Sanches, - Last Filed: 06/09/23 03:14> Lab Data Labs: Lab Results 06/08/23 Range/Units 18:30 WBC 6.1 (4.5-11.0) X10^3/uL RBC 6.07 H (4.5-5.9) X10^6/uL Hgb 12.8 L (13.5-17.5) g/dL Hct 40.5 L (41-53) % MCV 66.7 L (80-100) fL MCH 21.1 L (26-34) PG MCHC 31.6 (30-36) % RDW 16.7 H (11.6-14.8) % Plt Count 293 (150-400) X10^3/uL Neut % (Auto) 45.4 L (50-75) % Lymph % (Auto) 33.1 (25-40) % [place] % (Auto) 9.9 (3-14) % Eos % (Auto) 8.2 H (2-4) % Baso % (Auto) 3.4 H (0-2) % Neut # (Auto) 2800 (0081-6220) /uL Lymph # (Auto) 2000 (2366-5240) /uL [place] # (Auto) 600 (0-900) /uL Eos # (Auto) 500 H (0-450) /uL Baso # (Auto) 200 H (0-100) /uL RBC Morphology See below Microcytosis 1+ H Sodium 140 (137-145) mmol/L Potassium 3.7 (3.4-5.1) mmol/L Chloride 110 H (98-107) mmol/L Carbon Dioxide 23 (22-32) mmol/L BUN 16 (9-20) mg/dL Creatinine 0.82 (0.66-1.25) mg/dL Estimated GFR > 60 (>60) mL/min BUN/Creatinine Ratio 19.5 (6-22) Glucose 111 H (80-110) mg/dL Calcium 9.1 (8.4-10.2) mg/dL Total Bilirubin 0.5 (0.2-1.3) mg/dL AST 41 (17-59) IU/L ALT 37 (<50) IU/L Alkaline Phosphatase 51 (38-126) U/L Total Protein 7.2 (6.3-8.2) g/dL Albumin 4.2 (3.5-5.0) g/dL Globulin 3.0 (1.7-4.1) g/dL Albumin/Globulin Ratio 1.4 (1.0-2.8) Point of care testing: Urine Dip Bedside Urine Glucose Negative Bedside Urine Bilirubin - Negative Bedside Urine Ketone - Negative Urine Specific [place] 1.030 Bedside Urine Occult Blood - Negative Bedside Urine pH 6.0 Bedside Urine Protein - Negative Bedside Urine Urobilinogen - Negative Bedside Urine Nitrite - Negative Bedside Urine Leukocytes - Negative Esterase Imaging Data CT scan - abdomen/pelvis: Radiologist's Impression: [address] [address] [address] Scan Report Signed Patient: Guy Cox MR#: [id number] : 1960 Acct:[id number] Age/Sex: 62 / M Date of Service: 06/08/23 Loc: ED Accession Number: [id number] Procedure: CT abdomen pelvis w con Ordering Provider: Michelle Xiong P.A-C PROCEDURE: CT ABDOMEN PELVIS W CON INDICATIONS: right lower inguinal pain x 1 week. R/O hernia. CT 04/12/21. TECHNIQUE: After the administration of intravenous contrast, axial sections acquired from the lung bases to the pubic symphysis. Coronal and sagittal reformats were performed. For radiation dose reduction, the following was used: automated exposure control, adjustment of mA and/or kV according to patient size. COMPARISON: [facility], CT, CT ABDOMEN PELVIS W CON, 04/12/2021, 18:14. FINDINGS: Image quality: Diagnostic. Lower Chest: No significant findings. ABDOMEN: Liver: Unchanged appearance of ill-defined enhancement the posterior right superior hepatic lobe on series 2, image 28. This is suspicious for hemangioma and is unchanged. Punctate low-attenuation focus in the medial right hepatic lobe on series 2, image 34, too small to definitively characterize. This could represent a small cyst or potentially hemangioma. It is stable. Hepatic steatosis. Gallbladder: No radiopaque gallstones or wall thickening. Biliary ducts: No biliary dilation. Pancreas: No ductal dilation. Spleen: Size is within normal limits. Adrenal Glands: No adrenal nodules. Kidneys and Ureters: No hydronephrosis. No solid mass. No complex renal cystic lesion which requires follow up. Stomach and Bowel: Normal colonic caliber, without significant wall thickening. Appendix is normal. Minimal scattered diverticula. Peritoneum: No abnormal intraperitoneal fluid. No free air. Ventral Wall: No significant ventral hernia. Abdominal Nodes: No retroperitoneal or mesenteric adenopathy by size criteria. Vessels: Aorta and inferior vena cava are normal in size. PELVIS: Pelvic Organs: Unremarkable. Bladder: No bladder wall thickening, accounting for underdistention. Pelvic Nodes: No enlarged lymph nodes. Miscellaneous: Bilateral fat containing inguinal hernias are seen. Bones: No aggressive osseous abnormality. IMPRESSION: No acute intra-abdominal or pelvic process. Diverticulosis. Dictated by: Jannet Gu M.D. on 06/08/2023 at 19:01 Approved by: Jannet Gu M.D. on 06/08/2023 at 19:09 MDM Narrative Medical decision making narrative: Well-appearing 62 yo male with 8 day history of focal right sided inguinal/suprapubic tenderness in the absence of known injury. No GI symptoms or recent illness. No urinary complaints. Previous CT abd/pelvis 03/2021 showed bilateral fat containing inguinal hernias and mild sigmoid diverticulitis. Concern for worsening hernia, though not appreciated on physical exam, versus other abdominal process. Patient transferred to Attending MD. Studies and labs pending at time of transfer except for POC urine which was negative and guaiac stool negative. [id number] handover report given to Dr. May at 1900hrs (patient still in CT at the time of transfer). 1999 Dr Sanches-patient signed out to me by ANDREEA Xiong. Patient has been seen evaluated by myself. He has pinpoint right inguinal groin pain without any obvious inguinal hernia. Testicular exam was done by PAC. Blood work has been reviewed and is overall reassuring. CT does not show any acute abdominal process. Patient reports that this has happened to him in the past he has had a colonoscopy he is actually due to have another colonoscopy they found something on the 1st and increased his interval. No change in his bowel habits. Is not wanting or needing anything for pain at time. Discharge Plan Departure Patient Disposition: Home Clinical Impression: Strain of muscle of right groin region Instructions: DI for Groin Strain Activity Restrictions/Additional Instructions: *You have been diagnosed with right groin strain *What to do: At this time blood work and CT are overall reassuring. Try ice heat as needed. Please follow-up with your primary care provider *Continue to take medications as directed Tylenol 1000 mg every 6 hours if needed for riwk-gy-tvgdfanm pain Ibuprofen 600 mg every 6 hours if needed for buha-og-kklxesze pain *Follow up with your primary care provider in 2-3 days or call [phone] *Return to ER if you should have increasing pain testicular pain nausea vomiting or any new, worsening or concerning symptoms Prescriptions: No Action Flovent HFA 110 mcg/actuation HFA aerosol inhaler 1 puff INHALATION DAILY albuterol sulfate 2.5 mg /3 mL (0.083 %) solution for nebulization 2.5 mg inhalation Q4H PRN (Reason: shortness of breath or wheezing) Qty: 90 0RF Asmanex HFA 200 mcg/actuation HFA aerosol inhaler 2 inh inhalation BID Qty: 13 0RF prednisone 10 mg tablets,dose pack See Rx Instructions .ROUTE .COMPLEX Qty: 21 0RF Rx Instructions: Take 6 tablets p.o. x1 day, then 5 tablets p.o. x1 day, then 4 tablets p.o. x1 day, 3 tablets p.o. x1 day, then 2 tablets p.o. x1 day, then 1 tablet p.o. x1 day azithromycin 250 mg tablet See Rx Instructions .ROUTE .COMPLEX Qty: 6 0RF Rx Instructions: For 250 mg dose pack: take 500 mg today (day 1), then 250 mg for 4 days (days 2-5) omeprazole 20 mg capsule,delayed release(DR/EC) 20 mg PO DAILY albuterol sulfate 90 mcg/actuation HFA aerosol inhaler 1 puff Inhalation PRN PRN (Reason: Shortness Of Breath) fluticasone propionate 50 mcg/actuation spray,suspension 1 spray Intranasal DIRECTED loratadine 10 mg tablet 10 mg PO DAILY Referrals: Christian Moreno ARNP [Primary Care Provider] - Stand Alone Forms: Patient Portal/API ED Sign-out <Neva Sanches DO - Last Filed: 06/09/23 03:14> Cosign ED Attending Sophia Attestation: I was available for consultation. I took over care please see above
--- NOTE | 2023-06-08 18:11 | DI.CT.S_ITS ---
PROCEDURE: CT ABDOMEN PELVIS W CON INDICATIONS: right lower inguinal pain x 1 week. R/O hernia. CT 04/12/21. TECHNIQUE: After the administration of intravenous contrast, axial sections acquired from the lung bases to the pubic symphysis. Coronal and sagittal reformats were performed. For radiation dose reduction, the following was used: automated exposure control, adjustment of mA and/or kV according to patient size. COMPARISON: [facility], CT, CT ABDOMEN PELVIS W CON, 04/12/2021, 18:14. FINDINGS: Image quality: Diagnostic. Lower Chest: No significant findings. ABDOMEN: Liver: Unchanged appearance of ill-defined enhancement the posterior right superior hepatic lobe on series 2, image 28. This is suspicious for hemangioma and is unchanged. Punctate low-attenuation focus in the medial right hepatic lobe on series 2, image 34, too small to definitively characterize. This could represent a small cyst or potentially hemangioma. It is stable. Hepatic steatosis. Gallbladder: No radiopaque gallstones or wall thickening. Biliary ducts: No biliary dilation. Pancreas: No ductal dilation. Spleen: Size is within normal limits. Adrenal Glands: No adrenal nodules. Kidneys and Ureters: No hydronephrosis. No solid mass. No complex renal cystic lesion which requires follow up. Stomach and Bowel: Normal colonic caliber, without significant wall thickening. Appendix is normal. Minimal scattered diverticula. Peritoneum: No abnormal intraperitoneal fluid. No free air. Ventral Wall: No significant ventral hernia. Abdominal Nodes: No retroperitoneal or mesenteric adenopathy by size criteria. Vessels: Aorta and inferior vena cava are normal in size. PELVIS: Pelvic Organs: Unremarkable. Bladder: No bladder wall thickening, accounting for underdistention. Pelvic Nodes: No enlarged lymph nodes. Miscellaneous: Bilateral fat containing inguinal hernias are seen. Bones: No aggressive osseous abnormality. IMPRESSION: No acute intra-abdominal or pelvic process. Diverticulosis. Dictated by: Jannet Gu M.D. on 06/08/2023 at 19:01 Approved by: Jannet Gu M.D. on 06/08/2023 at 19:09
[2023-06-08 18:46] LABS: Add Manual Diff / Slide Review NO; Basophils Absolute Auto 200 /uL (0-100); Basophils Percent Auto 3.4 % (0-2); Eosinophils Absolute Auto 500 /uL (0-450); Eosinophils Percent Auto 8.2 % (2-4); Hematocrit 40.5 % (41-53); Hemoglobin 12.8 g/dL (13.5-17.5); Lymphocytes Absolute Auto 2000 /uL (1100-4500); Lymphocytes Percent Auto 33.1 % (25-40); Mean Corpuscular HGB Conc 31.6 % (30-36); Mean Corpuscular Hemoglobin 21.1 PG (26-34); Mean Corpuscular Volume 66.7 fL (80-100); Monocytes Absolute Auto 600 /uL (0-900); Monocytes Percent Auto 9.9 % (3-14); Neutrophils Absolute Auto 2800 /uL (1500-7000); Neutrophils Percent Auto 45.4 % (50-75); Platelet Count 293 X10^3/uL (150-400); Red Blood Cell Count 6.07 X10^6/uL (4.5-5.9); Red Cell Distribution Width 16.7 % (11.6-14.8); White Blood Cell Count 6.1 X10^3/uL (4.5-11.0)
[2023-06-08 19:15] LABS: Alanine Aminotransferase 37 IU/L (<50); Albumin 4.2 g/dL (3.5-5.0); Albumin Globulin Ratio 1.4 (1.0-2.8); Alkaline Phosphatase 51 U/L (38-126); Aspartate Aminotransferase 41 IU/L (17-59); BUN Creatinine Ratio 19.5 (6-22); Bilirubin Total 0.5 mg/dL (0.2-1.3); Blood Urea Nitrogen 16 mg/dL (9-20); Calcium 9.1 mg/dL (8.4-10.2); Carbon Dioxide 23 mmol/L (22-32); Chloride 110 mmol/L (98-107); Estimated Glomerular Filt Rate > 60 mL/min (>60); Glucose 111 mg/dL (80-110); HEMOLYSIS < 15 (0-50); Potassium 3.7 mmol/L (3.4-5.1); Sodium 140 mmol/L (137-145); Total Protein 7.2 g/dL (6.3-8.2)
[2023-06-08 19:16] LABS: Microcytosis 1+
[2023-06-08 19:18] VITALS: BP 162/79; PULSE 56; RESP 14; O2SAT 96
[2023-06-08 20:12] VITALS: BP 167/100; PULSE 56; RESP 20; TEMP 36.6; O2SAT 99
== END 2023-06-08 20:13 | disposition home or self-care (01) ==
PROVIDERS: Physician Assistant Medical; Emergency Provider Emergency Medicine; PCP Nurse Practitioner Family
DX: S39.011A Strain of muscle, fascia and tendon of abdomen, initial encounter (principal); R79.89 Other specified abnormal findings of blood chemistry
CPT/HCPCS: 36415; 74177; 80053; 81003; 85025; 99284; Q9967

== ENCOUNTER 2024-10-06 21:43 | Emergency (ER) | payer OTHER, SELFPAY ==
[2024-10-06 21:46] VITALS: BP 143/71; PULSE 66; RESP 18; TEMP 36.6; O2SAT 100; BMI 30.4
--- NOTE | 2024-10-06 22:08 | ED.EYEPROB ---
HPI - Eye Problem General Chief complaint: Eye Problems Stated complaint: L Eye Post Op Bleeding Time Seen by Provider: 10/06/24 21:45 Source: patient Mode of arrival: Ambulatory History of Present Illness HPI Narrative: Patient is a 64-year-old male past medical history of asthma, comes into the ED from home for evaluation of bleeding to his left eyelid, states he had eyelid surgery yesterday and remove attack, patient states he has been putting erythromycin ointment as instructed and at lunchtime it has consistently bled. Patient had the surgery at [facility] and [place], patient only takes a baby aspirin daily. Denies any other injuries concerns nontraumatic in nature. States that the bleeding site when he place the erythromycin ointment on his eye. Related Data Home Medications ?Medication ?Instructions ?Recorded ?Confirmed albuterol sulfate 90 mcg/actuation 1 puff inhalation PRN PRN 06/18/18 12/06/22 aerosol inhaler Shortness Of Breath fluticasone propionate 50 1 spray intranasal DIRECTED 06/18/18 11/27/20 mcg/actuation nasal spray,suspension loratadine 10 mg tablet 10 mg PO DAILY 06/18/18 11/27/20 omeprazole 20 mg capsule,delayed 20 mg PO DAILY 06/18/18 11/27/20 release fluticasone propionate 110 1 puff inhalation DAILY 11/27/20 11/27/20 mcg/actuation HFA aerosol inhaler (Flovent HFA) Previous Rx's ?Medication ?Instructions ?Recorded albuterol sulfate 2.5 mg/3 mL 2.5 mg (3 mL) inhalation Q4H PRN 02/24/21 (0.083 %) solution for nebulization shortness of breath or wheezing #90 mL azithromycin 250 mg tablet See Rx Instructions PO .COMPLEX #6 12/06/22 tabs mometasone 200 mcg/actuation HFA 2 inh inhalation BID #13 grams 12/06/22 aerosol inhaler (Asmanex HFA) prednisone 10 mg tablets in a dose See Rx Instructions PO .COMPLEX 12/06/22 pack #21 ea Allergies Allergy/AdvReac Type Severity Reaction Status Date / Time No Known Drug Allergies Allergy Verified 03/27/22 12:10 Review of Systems Review of Systems Narrative: General: Denies fever, chills, weight loss HEENT: Denies headache, eye drainage, eye irritation, head trauma, sore throat, voice change Cardiovascular: Denies any chest pain, palpitations, tachycardia Respiratory: Denies any shortness of breath, cough, wheeze, stridor GI/: Denies any abdominal pain, nausea, vomiting, diarrhea, bright red blood per rectum, melanotic stools, urinary frequency, urinary retention, dysuria, hematuria MSK: Denies any joint pain, muscle pains, swelling Skin: Bleeding to left eyelid Neuro: Denies any headache, lightheadedness, dizziness, fainting, weakness Psych: Denies SI/HI Patient History Medical History (Updated 10/06/24 @ 23:20 by Juan Saini DO) Asthma Social History household members: spouse Smoking Status: Former smoker Smoking Status: Former smoker tobacco type: cigarettes alcohol intake frequency: a few times a week Exam Narrative Exam Narrative: General: Cooperative, well-developed, not in acute distress HEENT: Normocephalic, atraumatic, PERRLA, normal sclera, eyelids normal, left eyelid with a very small dot noted that is slowly oozing/bleeding no actual laceration noted Neck: Active full range of motion, atraumatic Chest: Normal to inspection, negative crepitus, no overlying erythema ecchymosis Respiratory: Normal respiratory effort, not in acute respiratory distress, clear to auscultation bilaterally negative cough, wheeze, tachypnea, rhonchi, rales Cardiology: Regular rate rhythm negative gallop, murmur, rubs GI/: No tenderness to palpation, soft, non rigid, normal to inspection, exam deferred MSK: Full active range of motion in all 4 extremities, atraumatic, no tenderness to palpation of any bony prominences Skin: No rashes or lesions noted Neuro: Alert awake oriented x3, moves all 4 extremities spontaneously, cranial nerves intact, able to answer all questions appropriately follows commands appropriately Psych: Cooperative, negative suicidal or homicidal ideations Initial Vital Signs Initial Vital Signs: Vital Signs Temperature 98 F 10/06/24 21:46 Pulse Rate 66 10/06/24 21:46 Respiratory Rate 18 10/06/24 21:46 Blood Pressure 143/71 H 10/06/24 21:46 Pulse Oximetry 100 10/06/24 21:46 Oxygen Delivery Method Room Air 10/06/24 21:46 Course Orders Ordered: Discontinued Medications Tranexamic Acid (Tranexamic Acid 1,000 Mg Vial) 1,000 mg TOP NOW ONE Stop: 10/06/24 22:45 Last Admin: 10/06/24 23:06 Dose: 1,000 mg Documented By: AAYUSH Vital Signs Vital signs: Vital Signs - 8 hr 10/06/24 21:46 Temperature 98 F Pulse Rate 66 Respiratory Rate 18 Blood Pressure 143/71 H Pulse Oximetry 100 Oxygen Delivery Method Room Air MDM - Eye Problem Differential Diagnosis Differential diagnosis: Likely other (Laceration, abrasion, avulsion) MDM Narrative Medical decision making narrative: 64-year-old male without any significant past medical history comes into the ED from home for evaluation of bleeding to his left eyelid, states that he had a skin tag cauterized earlier today at [place] at [facility], states that he was putting you erythromycin ointment to his eyelid as instructed earlier today and it started bleeding, not on any blood thinners only takes baby aspirin, no actual visual issues, no trauma or falls. On exam very small dot that is bleeding, did place Surgicel with compression dressing for approximately 30 minute this did freddy the bleeding, patient not complaining of any other symptoms instructed to follow up with his provider who performed the procedure tomorrow morning, he was given strict return precautions verbalized understanding of this and agrees to be discharged home with outpatient follow up Discharge Plan Departure Patient Disposition: Home Clinical Impression: Abrasion of eyelid Activity Restrictions/Additional Instructions: Please follow up with your provider who performed your procedure at [facility] vision and [place] Please read the discharge instructions sheet carefully and bring all papers to all doctor follow-up visits, as it may contain information that your doctor may want to see. Disease processes change and evolve, if your symptoms worsen or if you develop any new symptoms that are concerning to you please return for evaluation. Your evaluation today does not show any evidence of any life-threatening/serious illnesses requiring admission to the hospital or surgery. Please follow-up with your doctor for re-evaluation in approximately 1 day. Seek immediate medical attention for any worrisome symptoms. *If you do not have a primary care provider please contact the [facility] Resource line at [phone]. They will ask some questions about your medical history and help get you set up with a doctor in the community. Prescriptions: No Action Flovent HFA 110 mcg/actuation HFA aerosol inhaler 1 puff INHALATION DAILY albuterol sulfate 2.5 mg /3 mL (0.083 %) solution for nebulization 2.5 mg inhalation Q4H PRN (Reason: shortness of breath or wheezing) Qty: 90 0RF Asmanex HFA 200 mcg/actuation HFA aerosol inhaler 2 inh inhalation BID Qty: 13 0RF prednisone 10 mg tablets,dose pack See Rx Instructions .ROUTE .COMPLEX Qty: 21 0RF Rx Instructions: Take 6 tablets p.o. x1 day, then 5 tablets p.o. x1 day, then 4 tablets p.o. x1 day, 3 tablets p.o. x1 day, then 2 tablets p.o. x1 day, then 1 tablet p.o. x1 day azithromycin 250 mg tablet See Rx Instructions .ROUTE .COMPLEX Qty: 6 0RF Rx Instructions: For 250 mg dose pack: take 500 mg today (day 1), then 250 mg for 4 days (days 2-5) omeprazole 20 mg capsule,delayed release(DR/EC) 20 mg PO DAILY albuterol sulfate 90 mcg/actuation HFA aerosol inhaler 1 puff Inhalation PRN PRN (Reason: Shortness Of Breath) fluticasone propionate 50 mcg/actuation spray,suspension 1 spray Intranasal DIRECTED loratadine 10 mg tablet 10 mg PO DAILY Referrals: Christian Moreno ARNP [Primary Care Provider, Medical] Stand Alone Forms: Patient Portal/API
[2024-10-06] MEDS: TRANEXAMIC ACID 1,000 MG VIAL 1000 MG TOP (23:06)
[2024-10-06 23:32] VITALS: BP 123/67; PULSE 61; RESP 16; TEMP 36.4; O2SAT 98
== END 2024-10-06 23:34 | disposition home or self-care (01) ==
PROVIDERS: Emergency Provider Student in an Organized Health Care Education/Training Program; PCP Nurse Practitioner Family
DX: L76.21 Postprocedural hemorrhage of skin and subcutaneous tissue following a dermatologic procedure (principal)
CPT/HCPCS: 99282